=== PATIENT | female | born 1955 | race Caucasian/White ===

== ENCOUNTER 2021-08-18 10:35 | Outpatient (REF) | payer MEDICARE, SELFPAY ==
[2021-08-18 10:40] LABS: MANUAL DIFF FLAG NO
[2021-08-18 10:47] LABS: Basophils Percent Auto 0.2 % (0-2); Eosinophils Absolute Auto 0.2 X10*3/uL (0.0-0.4); Eosinophils Percent Auto 2.2 % (0-4); Hemoglobin 15.4 g/dl (12.0-16.0); Imm Gran Abs Auto 0.03 X10*3/uL (0.00-0.03); Imm Gran Pct Auto 0.4 % (0.0-0.4); Lymphocytes Absolute Auto 2.7 X10*3/uL (1.2-4.9); Lymphocytes Percent Auto 33.6 % (20-40); Mean Corpuscular HGB Conc 33.5 g/dl (31.0-35.0); Mean Corpuscular Hemoglobin 28.7 pg (27.0-33.0); Mean Corpuscular Volume 85.8 fL (80-98); Monocytes Absolute Auto 0.5 X10*3/uL (0.1-1.2); Monocytes Percent Auto 6.5 % (2-11); Neutrophils Absolute Auto 4.6 X10*3/uL (2.0-8.3); Neutrophils Percent Auto 57.1 % (45-73); Platelet Count 295 X10*3/uL (160-400); Red Blood Count 5.36 X10*6/uL (4.20-5.50); Red Cell Distribution Width 12.5 % (11.0-16.0); White Blood Count 8.1 X10*3/uL (4.8-10.8)
[2021-08-18 10:55] LABS: Appearance Urine TURBID; Color Urine YELLOW; Glucose Urine UA NEG (NEG); Leukocyte Esterase Urine NEG (NEG); Nitrite Urine NEG (NEG); Specific Gravity - Urine >= 1.030 (1.005-1.025); Urine Blood TRACE (NEG); Urine Ketones 15 MG/DL (NEG); Urine Protein 1+ MG/DL (NEG-TRACE)
[2021-08-18 11:03] LABS: Alanine Aminotransferase 19 U/L (0-31); Albumin Level 4.7 g/dL (3.5-5.0); Alkaline Phosphatase 81 U/L (39-117); Anion Gap 15 (12-20); Aspartate Amino Transferase 18 U/L (5-31); Bilirubin Total 0.4 mg/dL (0.0-1.0); Blood Urea Nitrogen 19 mg/dL (9-16); Calcium 9.7 mg/dL (8.4-10.2); Carbon Dioxide 24 mmol/L (22-29); Chloride 105 mmol/L (96-108); Cholesterol 197 mg/dL; Estimated Glomerular Filt Rate > 60; Glucose Fasting 92 mg/dL (60-99); HDL Cholesterol 43 mg/dL; LDL Cholesterol Calculated 128 mg/dl; Potassium 4.4 mmol/L (3.3-5.1); Sodium 140 mmol/L (135-145); Total Protein 7.6 g/dL (6.5-8.0); Triglycerides 134 mg/dL
[2021-08-18 11:31] LABS: Amorphous Sediment Urine 4+ /LPF; RBC Urine 0 /HPF (0); Squamous Epithelial Cell Urine TRACE /LPF; WBC Urine 0 /HPF (0-4)
== END 2021-08-18 10:36 | disposition home or self-care (01) ==
LOC: HO.LNP 10:35
PROVIDERS: Visit Provider Internal Medicine
DX: Z00.00 Encounter for general adult medical examination without abnormal findings (principal)
CPT/HCPCS: 80053; 80061; 81001; 85025

== ENCOUNTER 2021-12-01 15:37 | Outpatient (REF) | payer MEDICARE, SELFPAY ==
[2021-12-01 16:50] LABS: Thyroid Stimulating Hormone < 0.01 uIU/mL (0.32-4.0)
[2021-12-02 11:11] LABS: Free T4 (Free Thyroxine) 1.15 ng/dL (0.71-1.85)
[2021-12-04 02:12] LABS: T3 Uptake 32 % (22-35)
== END 2021-12-01 15:38 | disposition home or self-care (01) ==
LOC: HO.LNP 15:37
PROVIDERS: Visit Provider Internal Medicine
DX: E03.9 Hypothyroidism, unspecified (principal)
CPT/HCPCS: 84439; 84443; 84479

== ENCOUNTER 2021-12-19 11:14 | Outpatient (REF) | payer MEDICARE, SELFPAY ==
--- NOTE | ~2021-12-19 | US_ITS ---
EXAMINATION: US THYROID CLINICAL INFORMATION: Left thyroid nodule. COMPARISON: None TECHNIQUE: Linear transducer grayscale and color Doppler examination with attention to the region of the thyroid. FINDINGS: SIZE: Measurements of the thyroid lobes and nodules are given in sagittal, anteroposterior and transverse dimensions respectively. Right Thyroid Lobe: 12.6 x 3.3 x 2.9 cm, volume 63.6 mL. Parenchyma: The gland echotexture is heterogeneous. Thyroid vascularity is increased. Left Thyroid Lobe: 8.3 x 4.1 x 4.2 cm, volume 75.2 mL. Parenchyma: The gland echotexture is heterogeneous. Thyroid vascularity is increased. Isthmus: 1.2 cm in maximum AP dimension. Estimated total number of nodules greater than or equal to 1 cm: 5. Commercial Plumber nodules are described as follows: 1. Location: Right mid. Size: 3.0 x 1.3 x 3.0 cm, volume 6.23 mL. Nodule characteristics: Composition: Mixed cystic and solid (1). Echogenicity: Hypoechoic (2). Shape: Not taller than wide (0). Margins: Smooth (0). Echogenic Foci: None (0). ACR TI-RADS total points: 3 ACR TI-RADS category: 3 2. Location: Right mid. Size: 2.1 x 1.3 x 1.7 cm, volume 2.5 mL. Nodule characteristics: Composition: Mixed cystic and solid (1). Echogenicity: Hypoechoic (2). Shape: Not taller than wide (0). Margins: Smooth (0). Echogenic Foci: None (0). ACR TI-RADS total points: 3 ACR TI-RADS category: 3 3. Location: Right inferior. Size: 1.9 x 0.8 x 1.2 cm, volume 0.9 mL. Nodule characteristics: Composition: Solid/almost completely solid (2). Echogenicity: Hypoechoic (2). Shape: Not taller than wide (0). Margins: Smooth (0). Echogenic Foci: None (0). ACR TI-RADS total points: 4 ACR TI-RADS category: 4 4. Location: Left superior. Size: 2.1 x 1.8 x 1.8 cm, volume 3.6 mL. Nodule characteristics: Composition: Solid (2). Echogenicity: Hypoechoic (2). Shape: Not taller than wide (0). Margins: Smooth (0). Echogenic Foci: Peripheral calcifications (2). ACR TI-RADS total points: 6 ACR TI-RADS category: 4 5. Location: Left mid. Size: 1.6 x 2.8 x 3.0 cm, volume 7.3 mL. Nodule characteristics: Composition: Solid/almost completely solid (2). Echogenicity: Isoechoic (1). Shape: Not taller than wide (0). Margins: Smooth (0). Echogenic Foci: None (0). ACR TI-RADS total points: 3 ACR TI-RADS category: 3 NODES: No lymphadenopathy is seen in the tissue surrounding the thyroid gland. US/US thyroid IMPRESSION: Enlarged heterogeneous hypervascular thyroid gland with multiple bilateral nodules. Multiple nodules meet the TI RADS criteria for fine-needle aspiration and follow-up. Most suspicious nodule is in the upper pole of the left lobe and fine-needle aspiration is recommended. ACR TI-RADS RECOMMENDATION REFERENCE: Ultrasound-guided fine-needle aspiration, followup ultrasound, no further follow up. * TR1 (0 point) and TR 2 (2 points): No FNA or follow up * TR3 (3 points): FNA if more than or equal to 2.5 cm in maximum dimension, followup ultrasound in 1, 3 and 5 years if 1.5 to 2.4 cm in maximum dimension. * TR4 (4-6 points): FNA if more than or equal to 1.5 cm in maximum dimension, followup ultrasound in 1, 2, 3 and 5 years if 1 to 1.4 cm in maximum dimension. * TR5 (more than or equal to 7 points): FNA if more than or equal to 1 cm in maximum dimension, followup ultrasound every year for 5 years if 0.5 to 0.9 cm in maximum dimension. * TR3, TR4 or TR5 nodules that are below the size threshold for follow up receive no follow up.
== END 2021-12-19 11:15 | disposition home or self-care (01) ==
LOC: HO.US 11:14
PROVIDERS: Visit Provider Internal Medicine
DX: E04.1 Nontoxic single thyroid nodule (principal)
CPT/HCPCS: 76536

== ENCOUNTER → 2022-06-19 08:02 | Outpatient (BNVA) | payer MEDICARE, SELFPAY | PROVIDERS: PCP Internal Medicine; Visit Provider Internal Medicine | DX: E05.90 Thyrotoxicosis, unspecified without thyrotoxic crisis or storm (principal); E04.2 Nontoxic multinodular goiter; E55.9 Vitamin D deficiency, unspecified | CPT/HCPCS: Q3014 ==

== ENCOUNTER 2022-06-23 08:16 | Outpatient (REF) | payer MEDICARE, SELFPAY ==
[2022-06-23 09:54] LABS: Alanine Aminotransferase 13 U/L (0-31); Albumin Level 4.3 g/dL (3.5-5.0); Alkaline Phosphatase 69 U/L (39-117); Anion Gap 15 (12-20); Aspartate Amino Transferase 13 U/L (5-31); Bilirubin Total 0.6 mg/dL (0.0-1.0); Blood Urea Nitrogen 23 mg/dL (9-16); Calcium 9.4 mg/dL (8.4-10.2); Carbon Dioxide 23 mmol/L (22-29); Chloride 108 mmol/L (96-108); Estimated Glomerular Filt Rate > 60; Glucose Random 106 mg/dL (60-115); Phosphorus 3.5 mg/dL (2.7-4.5); Potassium 4.4 mmol/L (3.3-5.1); Sodium 142 mmol/L (135-145); Total Protein 6.8 g/dL (6.5-8.0)
[2022-06-23 10:16] LABS: Free T4 (Free Thyroxine) 1.31 ng/dL (0.71-1.85); Thyroid Stimulating Hormone < 0.01 uIU/mL (0.32-4.0)
[2022-06-25 12:52] LABS: Calcium (PTHI) 9.6 mg/dL (8.6-10.4); PTHI 77 pg/mL (16-77)
[2022-06-26 06:48] LABS: Triiodothyronine T3 Total 142 ng/dL (76-181)
[2022-06-26 17:02] LABS: Thyroid Peroxidase Antibodies <1 IU/mL (<9)
[2022-06-26 21:11] LABS: Thyroglobulin Antibodies <1 IU/mL (< or = 1)
[2022-06-28 14:22] LABS: Thyroid Stimulating Immunoglob <89 % baseline (<140)
[2022-06-28 21:21] LABS: Thyrotropin Receptor Antibody <1.00 IU/L (<=2.00)
== END 2022-06-23 08:17 | disposition home or self-care (01) ==
LOC: HO.LAB 08:16
PROVIDERS: PCP Internal Medicine; Visit Provider Internal Medicine
DX: E04.2 Nontoxic multinodular goiter (principal); E05.90 Thyrotoxicosis, unspecified without thyrotoxic crisis or storm; E55.9 Vitamin D deficiency, unspecified
CPT/HCPCS: 36415; 80053; 82306; 83520; 83970; 84100; 84439; 84443; 84445; 84480; 86376; 86800

== ENCOUNTER → 2022-07-12 09:21 | Outpatient (REF) | payer MEDICARE, SELFPAY ==
--- NOTE | ~2022-07-12 | NM_ITS ---
EXAMINATION: THYROID UPTAKE AND SCAN CLINICAL INFORMATION: Thyrotoxicosis. COMPARISON: No previous radionuclide thyroid scan is available for comparison. Thyroid ultrasound dated 12/19/2021 is available for comparison. TECHNIQUE: Following the oral administration of 279 microcuries of I-123 sodium iodide, thyroid uptake was performed and expressed as a percentage of the administrated dose. Gamma scintillation camera images of the thyroid in the anterior and right and left anterior oblique views were obtained using a pinhole collimator following the administration of 10 mCi Tc-99m pertechnetate. FINDINGS: The uptake is 25.3% at 4 hours and 42.5% at 24 hours (Normal radioiodine uptake at 24 hours is 10% to 30%). The radioiodine uptake is normal. The radiopertechnetate thyroid scintigram shows the thyroid gland to be markedly enlarged. The left lobe is slightly larger than the right. There is markedly heterogeneous distribution of activity within the gland with multiple small rounded foci of relatively increased activity present throughout the left lobe with the remainder of the left lobe only barely visualized. A larger and more intense focus of increased activity with central photopenia is present in the mid to superior aspect of the right lobe and additional smaller and less intense rounded foci are present in the remainder of the right lobe, and at least 3 foci. A single anterior radioiodine image obtained at the time of the 24-hour uptake measurement is similar to the radio pertechnetate image but does not delineate the detail within the gland quite as well. The thyroid ultrasound dated 12/19/2021 showed multiple nodules bilaterally. 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
== END ==
LOC: HO.NUCMED 09:21
PROVIDERS: PCP Internal Medicine; Visit Provider Internal Medicine
DX: E04.2 Nontoxic multinodular goiter (principal); E05.90 Thyrotoxicosis, unspecified without thyrotoxic crisis or storm
CPT/HCPCS: 78014; A9512; A9516

== ENCOUNTER 2022-08-04 07:30 | Outpatient (REF) | payer MEDICARE, SELFPAY ==
[2022-08-04 09:12] LABS: Free T4 (Free Thyroxine) 1.01 ng/dL (0.71-1.85)
[2022-08-06 18:17] LABS: Triiodothyronine T3 Total 123 ng/dL (76-181)
== END 2022-08-04 07:31 | disposition home or self-care (01) ==
LOC: HO.LAB 07:30
PROVIDERS: PCP Internal Medicine; Visit Provider Internal Medicine
DX: E05.90 Thyrotoxicosis, unspecified without thyrotoxic crisis or storm (principal)
CPT/HCPCS: 36415; 84439; 84480

== ENCOUNTER 2022-09-21 09:44 | Outpatient (REF) | payer MEDICARE, SELFPAY ==
--- NOTE | 2022-09-21 10:12 | PM.OP ---
Brief Operative Note Date of Service: 09/21/22 Pre-op diagnosis: Multinodular Thyroid Procedure: EXAMINATION: US THYROID CLINICAL INFORMATION: Multinodular Thyroid COMPARISON: Prior TECHNIQUE: Linear transducer martinez-scale and color Doppler examination with attention to the region of the thyroid. FINDINGS: SIZE: Measurements of the thyroid lobes and nodules are given in sagittal, anteroposterior and transverse dimensions respectively. Right Thyroid Lobe: 6.3 x 2.2 x 3.2 cm, volume 23.2 mL. Parenchyma: The gland echotexture is difusely heterogenous. Thyroid vascularity is increased. Left Thyroid Lobe: 7.8 x 4.0 x 5.3 cm, volume 86.5 mL. Parenchyma: The gland echotexture is diffusely heterogenous. Thyroid vascularity is increased. Isthmus: 0.9 cm in maximum AP dimension. There are numerous nodules within both lobes of the thyroid, too numerous to count. IMPRESSION: When comparing her ultrasound of the thyroid to her uptake and scan, all nodules appear to be hot nodules. Additionally the patient appears to be thyrotoxic today. No FNA was performed due to the risk of inducing crisis. She was instead asked to have TFTs repeated now so a dose adjustment of her methimazole can be made. We also discussed the option of total thyroidectomy, and she has agreed to this. I have referred her to Dr. Miranda. Surgeon: Marcela Lyon, DO Was an Marketing Underwriter used for this Procedure?: No Estimated blood loss (mL): 0
[2022-09-21 11:35] LABS: Free T4 (Free Thyroxine) 0.96 ng/dL (0.71-1.85); Thyroid Stimulating Hormone 0.05 uIU/mL (0.32-4.0)
[2022-09-23 04:18] LABS: Triiodothyronine T3 Total 101 ng/dL (76-181)
== END 2022-09-21 09:45 | disposition home or self-care (01) ==
LOC: HO.US 09:44
PROVIDERS: Visit Provider Internal Medicine
DX: E04.2 Nontoxic multinodular goiter (principal)
CPT/HCPCS: 36415; 76536; 84439; 84443; 84480

== ENCOUNTER 2022-10-09 08:22 | Outpatient (REF) | payer MEDICARE, SELFPAY ==
[2022-10-09 10:33] LABS: Free T4 (Free Thyroxine) 0.87 ng/dL (0.71-1.85)
[2022-10-11 01:39] LABS: Triiodothyronine T3 Total 100 ng/dL (76-181)
== END 2022-10-09 08:23 | disposition home or self-care (01) ==
LOC: HO.LAB 08:22
PROVIDERS: PCP Internal Medicine; Visit Provider Internal Medicine
DX: E05.20 Thyrotoxicosis with toxic multinodular goiter without thyrotoxic crisis or storm (principal)
CPT/HCPCS: 36415; 84439; 84480

== ENCOUNTER → 2022-10-11 11:35 | Outpatient (BNVA) | payer MEDICARE, SELFPAY | PROVIDERS: PCP Internal Medicine; Visit Provider Internal Medicine | DX: E05.90 Thyrotoxicosis, unspecified without thyrotoxic crisis or storm (principal); E04.2 Nontoxic multinodular goiter; E55.9 Vitamin D deficiency, unspecified | CPT/HCPCS: 99212 ==

== ENCOUNTER 2022-11-10 08:28 | Outpatient (REF) | payer MEDICARE, SELFPAY ==
[2022-11-10 11:43] LABS: Free T4 (Free Thyroxine) 0.73 ng/dL (0.71-1.85); Thyroid Stimulating Hormone 1.12 uIU/mL (0.32-4.0)
[2022-11-11 17:45] LABS: Triiodothyronine T3 Total 111 ng/dL (76-181)
== END 2022-11-10 08:29 | disposition home or self-care (01) ==
LOC: HO.LAB 08:28
PROVIDERS: PCP Internal Medicine; Visit Provider Internal Medicine
DX: E05.90 Thyrotoxicosis, unspecified without thyrotoxic crisis or storm (principal)
CPT/HCPCS: 36415; 84439; 84443; 84480

== ENCOUNTER → 2022-11-15 12:43 | Outpatient (BNVA) | payer MEDICARE, SELFPAY | PROVIDERS: PCP Internal Medicine; Visit Provider Internal Medicine | DX: E05.90 Thyrotoxicosis, unspecified without thyrotoxic crisis or storm (principal); E04.2 Nontoxic multinodular goiter; E55.9 Vitamin D deficiency, unspecified | CPT/HCPCS: 99212 ==

== ENCOUNTER 2022-11-28 11:12 | Outpatient (REF) | payer MEDICARE, SELFPAY ==
[2022-11-28 11:15] LABS: MANUAL DIFF FLAG NO
[2022-11-28 11:29] LABS: Appearance Urine Clear; Color Urine Yellow; Glucose Urine UA Negative (Negative); Leukocyte Esterase Urine Negative (Negative); Nitrite Urine Negative (Negative); PH 5.5 (5.0-9.0); Urine Blood Negative (Negative); Urine Ketones Negative (Negative); Urine Protein Negative (Neg-Trace)
[2022-11-28 12:04] LABS: Basophils Percent Auto 0.4 % (0-2); Eosinophils Absolute Auto 0.3 X10*3/uL (0.0-0.4); Eosinophils Percent Auto 4.5 % (0-4); Imm Gran Abs Auto 0.02 X10*3/uL (0.00-0.03); Imm Gran Pct Auto 0.3 % (0.0-0.4); Lymphocytes Percent Auto 30.2 % (20-40); Mean Corpuscular HGB Conc 33.3 g/dl (31.0-35.0); Mean Platelet Volume 9.9 fL (9.4-12.3); Monocytes Absolute Auto 0.4 X10*3/uL (0.1-1.2); Monocytes Percent Auto 5.8 % (2-11); Neutrophils Absolute Auto 3.9 x10*3/uL (2.0-8.3); Neutrophils Percent Auto 58.8 % (45-73); Platelet Count 230 X10*3/uL (160-400); Red Blood Count 4.84 X10*6/uL (4.20-5.50); Red Cell Distribution Width 13.1 % (11.0-16.0); White Blood Count 6.7 X10*3/uL (4.8-10.8)
[2022-11-28 12:34] LABS: Alanine Aminotransferase 26 U/L (0-31); Albumin Level 4.6 g/dL (3.5-5.0); Alkaline Phosphatase 70 U/L (39-117); Anion Gap 14 (12-20); Aspartate Amino Transferase 19 U/L (5-31); Bilirubin Total 0.5 mg/dL (0.0-1.0); Blood Urea Nitrogen 18 mg/dL (9-16); Calcium 9.7 mg/dL (8.4-10.2); Carbon Dioxide 26 mmol/L (22-29); Chloride 107 mmol/L (96-108); Cholesterol 214 mg/dL; Estimated Glomerular Filt Rate > 60; Glucose Fasting 98 mg/dL (60-99); HDL Cholesterol 46 mg/dL; LDL Cholesterol Calculated 153 mg/dl; Potassium 4.6 mmol/L (3.3-5.1); Sodium 142 mmol/L (135-145); TSH reflex Free T4 1.81 uIU/mL (0.32-4.0); Triglycerides 79 mg/dL
== END 2022-11-28 11:13 | disposition home or self-care (01) ==
LOC: HO.LNP 11:12
PROVIDERS: Visit Provider Internal Medicine
DX: Z00.00 Encounter for general adult medical examination without abnormal findings (principal); E05.90 Thyrotoxicosis, unspecified without thyrotoxic crisis or storm
CPT/HCPCS: 80053; 80061; 81003; 84443; 85025

== ENCOUNTER 2022-12-27 09:53 | Outpatient (REF) | payer MEDICARE, SELFPAY ==
[2022-12-27 12:11] LABS: Free T4 (Free Thyroxine) 0.74 ng/dL (0.71-1.85); Thyroid Stimulating Hormone 1.37 uIU/mL (0.32-4.0)
[2022-12-29 08:32] LABS: Triiodothyronine T3 Total 92 ng/dL (76-181)
== END 2022-12-27 09:54 | disposition home or self-care (01) ==
LOC: HO.LAB 09:53
PROVIDERS: PCP Internal Medicine; Visit Provider Internal Medicine
DX: E04.2 Nontoxic multinodular goiter (principal); E05.90 Thyrotoxicosis, unspecified without thyrotoxic crisis or storm
CPT/HCPCS: 36415; 84439; 84443; 84480

== ENCOUNTER 2023-03-09 10:27 | Outpatient (REF) | payer MEDICARE, SELFPAY ==
[2023-03-09 13:01] LABS: Free T4 (Free Thyroxine) 0.86 ng/dL (0.71-1.85)
[2023-03-10 19:08] LABS: Triiodothyronine T3 Total 89 ng/dL (76-181)
== END 2023-03-09 10:28 | disposition home or self-care (01) ==
LOC: HO.LAB 10:27
PROVIDERS: PCP Internal Medicine; Visit Provider Internal Medicine
DX: E05.20 Thyrotoxicosis with toxic multinodular goiter without thyrotoxic crisis or storm (principal)
CPT/HCPCS: 36415; 84439; 84443; 84480

== ENCOUNTER 2023-04-30 07:06 | Outpatient (REF) | payer MEDICARE, SELFPAY ==
[2023-04-30 09:12] LABS: Calcium 9.5 mg/dL (8.4-10.2)
[2023-04-30 09:23] LABS: Free T4 (Free Thyroxine) 0.96 ng/dL (0.71-1.85); Thyroid Stimulating Hormone 1.64 uIU/mL (0.32-4.0)
[2023-05-01 23:34] LABS: Triiodothyronine T3 Free 3.4 pg/mL (2.3-4.2)
== END 2023-04-30 07:07 | disposition home or self-care (01) ==
LOC: HO.LAB 07:06
PROVIDERS: PCP Internal Medicine; Visit Provider Surgery
DX: E05.00 Thyrotoxicosis with diffuse goiter without thyrotoxic crisis or storm (principal)
CPT/HCPCS: 36415; 82310; 84439; 84443; 84481

== ENCOUNTER 2023-06-28 12:07 | Outpatient (REF) | payer MEDICARE, SELFPAY ==
[2023-06-28 14:18] LABS: Calcium 9.6 mg/dL (8.4-10.2)
[2023-06-28 14:42] LABS: TSH reflex Free T4 2.96 uIU/mL (0.32-4.0)
== END 2023-06-28 12:08 | disposition home or self-care (01) ==
LOC: HO.LNP 12:07
PROVIDERS: Visit Provider Internal Medicine
DX: E89.0 Postprocedural hypothyroidism (principal)
CPT/HCPCS: 82310; 84443

== ENCOUNTER 2023-06-29 16:08 | Outpatient (AMB) | payer MEDICARE, SELFPAY ==
--- NOTE | 2023-06-29 16:09 | MHC.OFFVIS ---
Intake Vital Signs 06/29/23 16:11 Height 5 ft 4 in Weight 165 lb 2.02 oz BMI 28.3 BP 118/72 Blood Pressure Location Lt brachial Position Sitting Pulse 61 Pulse Source Pulse Oximeter Intake Visit Reasons: Follow up Thyroidectomy 05/15/23 Intake Note: New patient present today for Thyroidectomy follow up visit. Former Dr. Royal patient. Director Of Casework Department Required: No Accompanied by: Self / Same As Patient Allergies No Known Allergies Allergy (Verified 06/29/23 16:12) Medication List - Last Reconciled 06/29/23 by Mikael Nath MD aspirin (Adult Low Dose Aspirin) 81 mg PO DAILY levothyroxine 0.012 mcg PO DAILY HPI HPI Comments History of Present Illness Details 68 YO F with PMHx Hyperthyroidism and a multinodular thyroid . Patient last saw Dr. Royal. 11/15/2022 Was initially diagnosed with hyperthyroidism in Nov 2021, and then had a thyroid US Dec 2021 which revealed multiple thyroid nodules. She reported a weight loss of 30 lbs, anxiety, insomnia as well as heat intolerance. Denied any palpitations, tremors, frequent bowel movements. She does have double vision, but this has been present since she was a child and is unchanged. Denies any pressure in the eyes or occular pain. Thyroid US revealed a multinodular thyroid. Thyroid Uptake and Scan was consistent with a toxic MNG. She was started on methimazole 10 mg PO daily and remains on this now. She is tolerating this well without jaundice, abdominal pain, frequent infection or rash. She does report feeling tired and a weight gain of 8 lbs since starting the methimazole. Her recent FT4 and TT3 were WNL. Denies any history of head or neck irradiation. Denies any family history of thyroid cancer. Thyroid Uptake and Scan: 07/13/2022 FINDINGS: The uptake is 25.3% at 4 hours and 42.5% at 24 hours (Normal radioiodine uptake at 24 hours is 10% to 30%). The radioiodine uptake is normal. The radiopertechnetate thyroid scintigram shows the thyroid gland to be markedly enlarged. The left lobe is slightly larger than the right. There is markedly heterogeneous distribution of activity within the gland with multiple small rounded foci of relatively increased activity present throughout the left lobe with the remainder of the left lobe only barely visualized. A larger and more intense focus of increased activity with central photopenia is present in the mid to superior aspect of the right lobe and additional smaller and less intense rounded foci are present in the remainder of the right lobe, and at least 3 foci. A single anterior radioiodine image obtained at the time of the 24-hour uptake measurement is similar to the radio pertechnetate image but does not delineate the detail within the gland quite as well. The thyroid ultrasound dated 12/19/2021 showed multiple nodules bilaterally. 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 Thyroid US: 12/19/2021 Right Thyroid Lobe: 12.6 x 3.3 x 2.9 cm, volume 63.6 mL. Parenchyma: The gland echotexture is heterogeneous. Thyroid vascularity is increased. Left Thyroid Lobe: 8.3 x 4.1 x 4.2 cm, volume 75.2 mL. Parenchyma: The gland echotexture is heterogeneous. Thyroid vascularity is increased. Isthmus: 1.2 cm in maximum AP dimension. Estimated total number of nodules greater than or equal to 1 cm: 5. Assistant To The Director nodules are described as follows: 1. Location: Right mid. ?? ? Size: 3.0 x 1.3 x 3.0 cm, volume 6.23 mL. ?? ? Nodule characteristics: ?? ? Composition: Mixed cystic and solid (1). ?? ? Echogenicity: Hypoechoic (2). ?? ? Shape: Not taller than wide (0). ?? ? Margins: Smooth (0). ?? ? Echogenic Foci: None (0). ?? ? ACR TI-RADS total points: 3 ?? ? ACR TI-RADS category: 3 2. Location: Right mid. ?? ? Size: 2.1 x 1.3 x 1.7 cm, volume 2.5 mL. ?? ? Nodule characteristics: ?? ? Composition: Mixed cystic and solid (1). ?? ? Echogenicity: Hypoechoic (2). ?? ? Shape: Not taller than wide (0). ?? ? Margins: Smooth (0). ?? ? Echogenic Foci: None (0). ?? ? ACR TI-RADS total points: 3 ?? ? ACR TI-RADS category: 3 3. Location: Right inferior. ?? ? Size: 1.9 x 0.8 x 1.2 cm, volume 0.9 mL. ?? ? Nodule characteristics: ?? ? Composition: Solid/almost completely solid (2). ?? ? Echogenicity: Hypoechoic (2). ?? ? Shape: Not taller than wide (0). ?? ? Margins: Smooth (0). ?? ? Echogenic Foci: None (0). ?? ? ACR TI-RADS total points: 4 ?? ? ACR TI-RADS category: 4 4. Location: Left superior. ?? ? Size: 2.1 x 1.8 x 1.8 cm, volume 3.6 mL. ?? ? Nodule characteristics: ?? ? Composition: Solid (2). ?? ? Echogenicity: Hypoechoic (2). ?? ? Shape: Not taller than wide (0). ?? ? Margins: Smooth (0). ?? ? Echogenic Foci: Peripheral calcifications (2). ?? ? ACR TI-RADS total points: 6 ?? ? ACR TI-RADS category: 4 5.? Location: Left mid. ?? ? Size: 1.6 x 2.8 x 3.0 cm, volume 7.3 mL. ?? ? Nodule characteristics: ?? ? Composition: Solid/almost completely solid (2). ?? ? Echogenicity: Isoechoic (1). ?? ? Shape: Not taller than wide (0). ?? ? Margins: Smooth (0). ?? ? Echogenic Foci: None (0). ?? ? ACR TI-RADS total points: 3 ?? ? ACR TI-RADS category: 3 ?? ? NODES: No lymphadenopathy is seen in the tissue surrounding the thyroid gland. US/US thyroid IMPRESSION: Enlarged heterogeneous hypervascular thyroid gland with multiple bilateral nodules. Multiple nodules meet the TI RADS criteria for fine-needle aspiration and follow-up. Most suspicious nodule is in the upper pole of the left lobe and fine-needle aspiration is recommended. Labs: Laboratory Tests 11/10/22 11/10/22 08:38 08:38 TSH 1.12 Free T4 0.73 Total T3 111 she is status post total thyroidectomy on 05/15/2023 with benign pathology. [facility] Medical History Hyperthyroidism Multinodular thyroid Toxic multinodular goiter Vitamin D deficiency Surgical History History of foot surgery Hx of cataract surgery Family History Father Diabetes mellitus Mother HTN (hypertension) Social History Alcohol intake: current Alcohol intake frequency: holidays/special occasions only Patient Tobacco Use Status: Former Tobacco user Cigarette Packs Per Day: 2 Years Smoked: 15 Physical Exam Vital Signs: BMI result Body Mass Index 28.3 Const Other: Healing scar status post thyroidectomy. Reflexes 2+ DTR Assessment & Plan Assessment & Plan (1) Toxic multinodular goiter: Code(s): E05.20 - Thyrotoxicosis with toxic multinodular goiter without thyrotoxic crisis or storm Plan: This 68-year-old white female status post total thyroidectomy for toxic multinodular goiter. Currently replaced on 112 mcg levothyroxine. She appears to be clinically biochemically euthyroid. Plan is to continue the current therapy. At this point, patient returned to the care of her primary care provider and return back to endocrinology as needed Coding Level of Care Code Est Pt Level 3 (91072) Diagnoses Toxic multinodular goiter E05.20
[2023-06-29 16:11] VITALS: BP 118/72; PULSE 61; BMI 28.3
== END 2023-06-29 16:31 | disposition home or self-care (01) ==
PROVIDERS: PCP Internal Medicine; Visit Provider Internal Medicine Endocrinology, Diabetes & Metabolism
DX: E05.20 Thyrotoxicosis with toxic multinodular goiter without thyrotoxic crisis or storm (principal)
CPT/HCPCS: 99213

== ENCOUNTER → 2023-06-29 16:08 | Outpatient (BNVA) | payer MEDICARE, SELFPAY | PROVIDERS: PCP Internal Medicine; Visit Provider Internal Medicine Endocrinology, Diabetes & Metabolism | DX: E05.20 Thyrotoxicosis with toxic multinodular goiter without thyrotoxic crisis or storm (principal); Z79.899 Other long term (current) drug therapy | CPT/HCPCS: 99212 ==

== ENCOUNTER 2023-12-11 10:55 | Outpatient (REF) | payer MEDICARE, SELFPAY ==
[2023-12-11 11:01] LABS: MANUAL DIFF FLAG NO
[2023-12-11 11:31] LABS: Basophils Absolute Auto 0.1 X10*3/uL (0.0-0.2); Basophils Percent Auto 0.7 % (0-2); Eosinophils Absolute Auto 0.3 X10*3/uL (0.0-0.4); Eosinophils Percent Auto 3.1 % (0-4); Hematocrit 44.7 % (37.0-47.0); Hemoglobin 15.2 g/dl (12.0-16.0); Imm Gran Abs Auto 0.03 X10*3/uL (0.00-0.03); Imm Gran Pct Auto 0.4 % (0.0-0.4); Lymphocytes Absolute Auto 2.2 X10*3/uL (1.2-4.9); Lymphocytes Percent Auto 26.1 % (20-40); Mean Corpuscular Hemoglobin 31.4 pg (27.0-33.0); Mean Corpuscular Volume 92.4 fL (80.0-98.0); Mean Platelet Volume 9.4 fL (9.4-12.3); Monocytes Absolute Auto 0.5 X10*3/uL (0.1-1.2); Neutrophils Absolute Auto 5.3 x10*3/uL (2.0-8.3); Neutrophils Percent Auto 63.7 % (45-73); Platelet Count 308 X10*3/uL (160-400); Red Blood Count 4.84 X10*6/uL (4.20-5.50); Red Cell Distribution Width 12.8 % (11.0-16.0); White Blood Count 8.4 X10*3/uL (4.8-10.8)
[2023-12-11 11:34] LABS: Appearance Urine Clear; Color Urine Yellow; Glucose Urine UA Negative (Negative); Leukocyte Esterase Urine Negative (Negative); Nitrite Urine Negative (Negative); PH 5.5 (5.0-9.0); Specific Gravity - Urine 1.025 (1.005-1.025); UMIC TRIGGER UACC YES; Urine Blood Trace (Negative); Urine Ketones Negative (Negative); Urine Protein Negative (Neg-Trace)
[2023-12-11 11:41] LABS: Bacteria Urine None Seen (None Seen); Hyaline Casts Urine 0-2 /LPF (0-2); Squamous Epithelial Cell Urine 0-2 /HPF (0-2); WBC Urine 0-5 /HPF (0-5)
[2023-12-11 11:53] LABS: Alanine Aminotransferase 20 U/L (0-31); Albumin Level 4.7 g/dL (3.5-5.0); Alkaline Phosphatase 59 U/L (39-117); Anion Gap 16 (12-20); Aspartate Amino Transferase 16 U/L (5-31); Bilirubin Total 0.5 mg/dL (0.0-1.0); Blood Urea Nitrogen 21 mg/dL (9-16); Calcium 9.8 mg/dL (8.4-10.2); Carbon Dioxide 25 mmol/L (22-29); Chloride 104 mmol/L (96-108); Cholesterol 227 mg/dL (<200); Estimated Glomerular Filt Rate > 60; Glucose Fasting 112 mg/dL (60-99); HDL Cholesterol 50 mg/dL (>40); LDL Cholesterol Calculated 155 mg/dL (<100); Potassium 4.2 mmol/L (3.3-5.1); Sodium 141 mmol/L (135-145); Total Protein 7.8 g/dL (6.5-8.0); Triglycerides 112 mg/dL (<150)
[2023-12-11 13:22] LABS: TSH reflex Free T4 3.21 uIU/mL (0.32-4.0)
== END 2023-12-11 10:56 | disposition home or self-care (01) ==
LOC: HO.LNP 10:55
PROVIDERS: Visit Provider Internal Medicine
DX: Z00.00 Encounter for general adult medical examination without abnormal findings (principal); E05.90 Thyrotoxicosis, unspecified without thyrotoxic crisis or storm; I10 Essential (primary) hypertension
CPT/HCPCS: 80053; 80061; 81001; 84443; 85025

== ENCOUNTER 2024-06-19 11:00 | Outpatient (REF) | payer MEDICARE, SELFPAY ==
[2024-06-19 11:40] LABS: Glucose Fasting 102 mg/dL (60-99)
[2024-06-19 11:43] LABS: Estimated Average Glucose 108 mg/dL; Hemoglobin A1c % 5.4 % (<6.0)
== END 2024-06-19 11:01 | disposition home or self-care (01) ==
LOC: HO.LNP 11:00
PROVIDERS: Visit Provider Internal Medicine
DX: R31.29 Other microscopic hematuria (principal); R73.9 Hyperglycemia, unspecified
CPT/HCPCS: 82947; 83036

== ENCOUNTER 2024-07-01 10:50 | Outpatient (REF) | payer MEDICARE, SELFPAY ==
[2024-07-01 11:40] LABS: Free T4 (Free Thyroxine) 1.24 ng/dL (0.71-1.85); Thyroid Stimulating Hormone 3.03 uIU/mL (0.32-4.0)
[2024-07-01 11:48] LABS: Erythrocyte Sedimentation Rate 2 MM/HR (0-20)
== END 2024-07-01 10:51 | disposition home or self-care (01) ==
LOC: HO.LNP 10:50
PROVIDERS: Visit Provider Internal Medicine
DX: M35.3 Polymyalgia rheumatica (principal); E03.9 Hypothyroidism, unspecified; E05.90 Thyrotoxicosis, unspecified without thyrotoxic crisis or storm
CPT/HCPCS: 84439; 84443; 85652

== ENCOUNTER 2024-12-16 11:00 | Outpatient (REF) | payer MEDICARE, SELFPAY ==
[2024-12-16 11:02] LABS: MANUAL DIFF FLAG NO
[2024-12-16 11:30] LABS: Basophils Absolute Auto 0.1 X10*3/uL (0.0-0.2); Basophils Percent Auto 0.6 % (0-2); Eosinophils Absolute Auto 0.3 X10*3/uL (0.0-0.4); Eosinophils Percent Auto 3.8 % (0-4); Hematocrit 52.5 % (37.0-47.0); Hemoglobin 17.7 g/dl (12.0-16.0); Imm Gran Abs Auto 0.11 X10*3/uL (0.00-0.03); Imm Gran Pct Auto 1.2 % (0.0-0.4); Lymphocytes Absolute Auto 2.5 X10*3/uL (1.2-4.9); Lymphocytes Percent Auto 27.8 % (20-40); Mean Corpuscular HGB Conc 33.7 g/dl (31.0-35.0); Mean Corpuscular Hemoglobin 31.3 pg (27.0-33.0); Mean Corpuscular Volume 92.9 fL (80.0-98.0); Mean Platelet Volume 9.9 fL (9.4-12.3); Monocytes Absolute Auto 0.7 X10*3/uL (0.1-1.2); Monocytes Percent Auto 8.3 % (2-11); Neutrophils Absolute Auto 5.2 x10*3/uL (2.0-8.3); Neutrophils Percent Auto 58.3 % (45-73); Platelet Count 248 X10*3/uL (160-400); Red Blood Count 5.65 X10*6/uL (4.20-5.50); Red Cell Distribution Width 13.2 % (11.0-16.0); White Blood Count 8.9 X10*3/uL (4.8-10.8)
[2024-12-16 11:35] LABS: Bacteria Urine None Seen (None Seen); Hyaline Casts Urine 0-2 /LPF (0-2); WBC Urine 0-5 /HPF (0-5)
[2024-12-16 11:47] LABS: Appearance Urine Clear; Color Urine DK YELLOW; Glucose Urine UA Negative (Negative); Leukocyte Esterase Urine Negative (Negative); Nitrite Urine Negative (Negative); PH 5.5 (5.0-9.0); Specific Gravity - Urine >= 1.030 (1.005-1.025); UMIC TRIGGER UACC YES; Urine Blood Moderate (2+) (Negative); Urine Ketones Negative (Negative); Urine Protein 30 (1+) mg/dL (Neg-Trace)
[2024-12-16 11:56] LABS: Alanine Aminotransferase 23 U/L (0-31); Albumin Level 4.2 g/dL (3.5-5.0); Alkaline Phosphatase 62 U/L (39-117); Anion Gap 9 (12-20); Aspartate Amino Transferase 24 U/L (5-31); Bilirubin Total 1.1 mg/dL (0.0-1.0); Blood Urea Nitrogen 19 mg/dL (9-16); Calcium 9.2 mg/dL (8.4-10.2); Carbon Dioxide 27 mmol/L (22-29); Chloride 110 mmol/L (96-108); Cholesterol 200 mg/dL (<200); Estimated Glomerular Filt Rate > 60; Glucose Fasting 109 mg/dL (60-99); HDL Cholesterol 37 mg/dL (>40); LDL Cholesterol Calculated 139 mg/dL (<100); Potassium 4.4 mmol/L (3.3-5.1); Sodium 142 mmol/L (135-145); Total Protein 7.2 g/dL (6.5-8.0); Triglycerides 122 mg/dL (<150)
[2024-12-16 11:57] LABS: TSH reflex Free T4 3.25 uIU/mL (0.32-4.0)
--- OUTSIDE RECORDS SUMMARY | 2024-12-16 12:27 | XMS_ITS ---
Author Organization Valerio Khanna MD Address [address] [place], [place] [id number] Care Team Providers Care Migratory Farm Hand Name Role Phone Clemencia Valerio Primary Care Provider Results Component Value Reference Range Notes Complete Blood Count Auto Di ff (Not yet reviewed by provider) Interpretation: Performing Lab:[facility], [address] [place] [id number] Notes/Report: White Blood Count 8.9 4.8-10.8 X10*3/uL Red Blood Count 5.65 4.20-5.50 X10*6/uL Hemoglobin 17.7 12.0-16.0 g/dl Hematocrit 52.5 37.0-47.0 % Mean Corpuscular Volume 92.9 80.0-98.0 fL Mean Corpuscular Hemoglobin 31.3 27.0-33.0 pg Mean Corpuscular HGB Conc 33.7 31.0-35.0 g/dl Red Cell Distribution Width 13.2 11.0-16.0 % Platelet Count 248 160-400 X10*3/uL Mean Platelet Volume 9.9 9.4-12.3 fL Neutrophils Percent Auto 58.3 45-73 % Imm Gran Pct Auto 1.2 0.0-0.4 % Lymphocytes Percent Auto 27.8 20-40 % Monocytes Percent Auto 8.3 2-11 % Eosinophils Percent Auto 3.8 0-4 % Basophils Percent Auto 0.6 0-2 % NRBC Pct Auto 0.0 0.0-0.2 /100WBC Neutrophils Absolute Auto 5.2 2.0-8.3 x10*3/u L Imm Gran Abs Auto 0.11 0.00-0.03 X10*3/uL Lymphocytes Absolute Auto 2.5 1.2-4.9 X10*3/u L Monocytes Absolute Auto 0.7 0.1-1.2 X10*3/uL Eosinophils Absolute Auto 0.3 0.0-0.4 X10*3/u L Basophils Absolute Auto 0.1 0.0-0.2 X10*3/uL NRBC Abs Auto 0.000 0.0-0.012 X10*3/uL UA ClnCatch+Micro w/rflx Cul t (Not yet reviewed by provider) Interpretation: Performing Lab:[facility], [address] [place] [id number] Notes/Report: Urine, Clean Catch Color Urine DK YELLOW Appearance Urine Clear PH 5.5 5.0-9.0 Glucose Urine UA Negative Negative mg/dL Urine Blood Moderate (2+) Negative Specific [place] - Urine >= 1.030 1.005-1.025 Urine Protein 30 (1+) Neg-Trace mg/dL Urine Ketones Negative Negative mg/dL Nitrite Urine Negative Negative Leukocyte Esterase Urine Negative Negative RBC Urine 11-20 0-2 /HPF WBC Urine 0-5 0-5 /HPF Squamous Epithelial Cell Urine 3-5 0-2 /HPF Bacteria Urine None Seen None Seen Hyaline Casts Urine 0-2 0-2 /LPF REASON FOR VISIT yearly fasting labs Encounters Encounter Location Date Provider Diagnosis Valerio Khanna MD [address] [facility] [address] [place], [place] [id number] 12/16/2024 Valerio Khanna Blood tests for rout ine general physical examination Z00.00 ; Hyperthyroidism E05.90 and Labile hypertension I10 Assessments Encounter Date Diagnosis (ICD Code) Assessment Notes Treatment Notes Treatment Clinical Notes Section Notes 12/16/2024 Blood tests for routine general physical examination (ICD-10 - Z00.00) 12/16/2024 Hyperthyroidism (ICD-10 - E05.90) 12/16/2024 Labile hypertension (ICD-10 - I10) Plan Of Treatment Pending Test Test Name Order Date Complete Blood Count Auto Diff 5 Comprehensive [place]. Panel Fast 5 Lipid Panel 12/16/2024 TSH reflex Free T4 12/16/2024 UA ClnCatch+Micro w/rflx Cult 12/16/2024 Next Appt Details Provider Name:Valerio Rowdy Garnica ier, 12/25/2024 08:30:00 AM, [address] [facility], [address], [place], [place], [id number], Progress Notes * Divya STRATTONOB:1955 (69 yo F)Acc No.[id number]:12/16/2024 Progress Note Patient:?Tg STRATTON Provider:?Valerio Khanna MD :1955???Age:69 Y???Sex:Female D ate:12/16/2024 Address:[address] [place], [place] [id number] Subjective: * Chief Complaints: * ???1. Yearly fasting labs. * Medical History:? Objective: * Vitals:? Assessment: * Assessment: 1.?Blood tests for routine g eneral physical examination - Z00.00 (Primary)???2.?Hyperthyroidism - E05.90???3.?Labile hypertension - I10??? Plan: * Treatment: 2.?Hyperthyroidism?LAB: Complete Blood Count Auto Diff (Collection Date & Time - 12/16/2024 07:00 AM) ?LAB: Comprehensive [place]. Panel Fast ?LAB: Lipid Panel ?LAB: TSH reflex Free T4 ?LAB: UA ClnCatch+Micro w/rflx Cult (Collection Date & Time - 12/16/2024 07:00 AM) 3.?Labile hypertension?LAB: Complete Blood Count Auto Diff (Collection Date & Time - 12/16/2024 07:00 AM) ?LAB: Comprehensive [place]. Panel Fast ?LAB: Lipid Panel ?LAB: TSH reflex Free T4 ?LAB: UA ClnCatch+Micro w/rflx Cult (Collection Date & Time - 12/16/2024 07:00 AM) * Procedure Codes:?73600 VENIP UNCT, ROUTINE* * * The named appointment provid er may or may not be the originator of this progress note, and it is not deemed complete until electronically signed by the appointment provider. Sign off status: Pending * Provider:?Valerio Khanna MD Date:?0 12/16/2024 Generated for Gianni mendez/Kimberly/Irwin on:?12/16/2024 12:27 PM EST
--- OUTSIDE RECORDS SUMMARY | 2024-12-16 12:27 | XMS_ITS | Patient Health Record ---
Author Organization Valerio Khanna MD Address [address] [place], [place] [id number] Care Team Providers Care Ore Fielder Name Role Phone Clemencia Valerio Primary Care Provider Allergies No Known Allergies Results Component Value Reference Range Notes Glucose Fasting Reviewed date:06/19/2024 12:26:39 PM Interpretation: Performing Lab:[facility], [address] [place] [phone] Notes/Report: Glucose Fasting 102 60-99 mg/dL A fasting glucose from 100-125 mg/dl is considered impaired (pre-diabetes). Hemoglobin A1c Reviewed date:06/19/2024 12:26:01 PM Interpretation: Performing Lab:[facility], [address] [place] [phone] Notes/Report: Hemoglobin A1c % 5.4 <6.0 % Hemoglobin A1C Reference Range Adults: 4.8 - 6.0 % Non diabetic: < 6.0 % Goal: < 7.0 % Additional Action Suggested: > 8.0 % Note: Hemoglobin A1c results are invalid for patients with abnormal amounts of HbF. Blood transfusions may impact the HbA1c concentration in the patient sample. Estimated Average Glucose 108 eAG = Estimated average glucose which is %A1C expressed as average glucose, using the formula of the J2Q-Qceanpw Average Glucose study (ADAG), Diabetes Care, Vol.31,#8, 2007 Thyroid Stimulating Hormone Reviewed date:07/01/2024 11:55:14 AM Interpretation: Performing Lab:[facility], [address] [place] [phone] Notes/Report: Thyroid Stimulating Hormone 3.03 0.32-4.0 uIU/mL Note: A sustained TSH level above 2.5 uIU/mL may warrant further investigation. TSH 3rd Generation ([facility]) Lay Siddiqui Reviewed date:07/01/2024 11:55:24 AM Interpretation: Performing Lab:[facility], [address] [place] [phone] Notes/Report: Lay Siddiqui See Note Specimen held untested for 24 hours; Call to request Chemistry testing. Erythrocyte Sedimentation Ra te Reviewed date:07/01/2024 12:05:33 PM Interpretation: Performing Lab:[facility], [address] [place] [phone] Notes/Report: Erythrocyte Sedimentation Rate 2 0-20 MM/HR Patients with polycythemia and many hemoglobin abnormalities may have depressed sed rates whereas patients with anemia may have elevated sed rates. Free T4 (Free Thyroxine) Reviewed date:07/01/2024 11:56:07 AM Interpretation: Performing Lab:[facility], [address] [place] [phone] Notes/Report: Free T4 (Free Thyroxine) 1.24 0.71-1.85 ng/dL Complete Blood Count Auto Di ff (Not yet reviewed by provider) Interpretation: Performing Lab:[facility], [address] [place] [phone] Notes/Report: White Blood Count 8.9 4.8-10.8 X10*3/uL [...] (Not yet reviewed by provider) Interpretation: Performing Lab:[facility], [address] [place] [phone] Notes/Report: Urine, Clean Catch Color Urine DK YELLOW Appearance Urine Clear PH 5.5 5.0-9.0 Glucose Urine UA Negative Negative mg/dL Urine Blood Moderate (2+) Negative Specific [place] - Urine >= 1.030 1.005-1.025 Urine Protein 30 (1+) Neg-Trace mg/dL Urine Ketones Negative Negative mg/dL Nitrite Urine Negative Negative Leukocyte Esterase Urine Negative Negative RBC Urine 11-20 0-2 /HPF WBC Urine 0-5 0-5 /HPF Squamous Epithelial Cell Urine 3-5 0-2 /HPF Bacteria Urine None Seen None Seen Hyaline Casts Urine 0-2 0-2 /LPF Reason For Referral No Information Medications Medication SIG (Take, Route, Frequency, Duration) Notes Start Date End Date Status Multi Adult Gummies - as directed Orally 0 Not-Taking Aspirin 81 81 MG 1 tablet Orally Once a day for 30 day(s) Not-Taking Ibuprofen 200 MG 1 tablet with food o r milk as needed Orally Three times a day Not-Taking Levothyroxine Sodium 112 MCG TAKE 1 TABLET BY MOUTH EVERY DAY IN THE MORNING ON EMPTY STOMACH FOR 90 DAYS Active predniSONE 10 MG 1 tablet Orally Once a day for 30 days 06/26/2024 Active Immunizations Vaccine Route Administration Date Status Commravinder díaz Fluarix Quadrivalent IM Intramuscular 09/05/2019 Administravinder richter pt was given the vaccine at a [facility] in [facility]. PPSV23 (Pnemovax) IM Intramuscular 05/24/2020 Administered Influenza High Dose IM Intramuscular 07/15/2020 Administer ed Influenza High Dose IM Intramuscular 08/18/2021 Administer ed Fluarix Quadrivalent Unknown 08/18/2021 Administered SARS-COV-2 Pfizer Unknown 01/23/2021 Administered SARS-COV-2 Pfizer Unknown 02/13/2021 Administered SARS-COV-2 Pfizer Unknown 09/13/2021 Administered Fluarix Quadrivalent IM Intramuscular 11/28/2022 Administravinder richter Fluarix Quadrivalent - 150 Unknown 06/26/2024 [facility] Unknown 06/26/2024 [facility] Social History Tobacco Use: Social History Observation Description Date Details (start date - stop date) Former Smoker NA - NA Tobacco Use/Smoking Question Answer Notes Patient is a former smoker How long has it been since y ou last smoked? > 10 years Additional Findings: Tobacco Non-User Fo rmer smoker, currently using no form of tobacco Alcohol Screen Question Answer Notes Did you have a drink containing alcohol in the p ast year? No Points 0 Interpretation Negative Problems Problem Type SNOMED Code ICD Code Onset Dates Problem Status W/U Status Risk Notes Problem 83215271 Polymyalgia rheumatica (M35.3) Active confirmed Problem 443993768 Acquired hypothyroidism (E03.9) Active confirmed Problem Hyperthyroidism (56802911) Hyperthyroidism (E05.90) Active confirmed Problem Labile essential hypertension (228545456) Labile hypertension (I10) Active confirmed Problem 611081806 History of pneumonia (Z87.01) Active confirmed Problem Non-toxic single thyroid nodule (999250826) Left thyroid nodule (E04.1) Active confirmed Problem Non-toxic multinodular goiter (67227624) Multinodular goiter (nontoxic) (E04.2) Active confirmed Vital Signs Blood pressure diastolic 62 mm Hg 07/04/2024 Height 64.50 in 07/04/2024 Blood pressure systolic 124 mm Hg 07/04/2024 Weight 168 lbs 07/04/2024 BMI 28.39 kg/m2 07/04/2024 Encounters Encounter Location Date Provider Diagnosis Valerio Khanna MD [address] [place] [id number] 06/19/2024 Valerio Khanna Microscopic hematuri a R31.29 and Elevated blood sugar R73.9 Valerio Khanna MD [address] [place] [id number] 07/01/2024 Valerio Khanna Acquired hypothyroid ism E03.9 ; Polymyalgia rheumatica M35.3 and Hyperthyroidism E05.90 Valerio Khanna MD [address] [place] [id number] 12/16/2024 Valerio Khanna Blood tests for rout ine general physical examination Z00.00 ; Hyperthyroidism E05.90 and Labile hypertension I10 Valerio Khanna MD [address] [place] [phone] 12/20/2023 Valerio Khanna Microscopic hematuri a R31.29 ; Annual physical exam Z00.00 ; Elevated blood sugar R73.9 ; Hyperthyroidism E05.90 ; Labile hypertension I10 and Depression screening Z13.31 Valerio Khanna MD [address] [place] [id number] 06/26/2024 Valerio Khanna Polymyalgia rheumati ca M35.3 and Acquired hypothyroidism E03.9 Valerio Khanna MD [address] [place] [id number] 07/04/2024 Valerio Radhaardicaity Polymyalgia rheumati ca M35.3 and Hyperthyroidism E05.90 Assessments Encounter Date Diagnosis (ICD Code) Assessment Notes Treatment Notes Treatment Clinical Notes Section Notes 06/19/2024 Microscopic hematuria (ICD-10 - R31.29) 06/19/2024 Elevated blood sugar (ICD-10 - R73.9) 07/01/2024 Acquired hypothyroidism (ICD-10 - E03.9) 07/01/2024 Polymyalgia rheumatica (ICD-10 - M35.3) 12/16/2024 Blood tests for routine general physical examination (ICD-10 - Z00.00) 12/20/2023 Microscopic hematuria (ICD-10 - R31.29) will continue to monitor 12/20/2023 Annual physical exam (ICD-10 - Z00.00) labs reiewed and discussed with patient 06/26/2024 Polymyalgia rheumatica (ICD-10 - M35.3) pending diagnostic lab testing, SUSAN LEFT WITHOUT HAVING HER BLOOD DRAWN , BON LEFT ON HER HOMME PHONE TO CALL THE OFFICE . 06/26/2024 Acquired hypothyroidism (ICD-10 - E03.9) pending diagnsotic labs, patient verblaized understanding of medication and directions for use 07/04/2024 Polymyalgia rheumatica (ICD-10 - M35.3) doing much better. able to ambulate and do things that were previously impossible 07/04/2024 Hyperthyroidism (ICD-10 - E05.90) thyroid is normal at goal, will continue current regiment 07/01/2024 Hyperthyroidism (ICD-10 - E05.90) 12/16/2024 Hyperthyroidism (ICD-10 - E05.90) 12/20/2023 Elevated blood sugar (ICD-10 - R73.9) stable, no need for medication at this time stable, noneed 12/16/2024 Labile hypertension (ICD-10 - I10) 12/20/2023 Hyperthyroidism (ICD-10 - E05.90) stable, will continue current regiment 12/20/2023 Labile hypertension (ICD-10 - I10) stable, will continue to monitor 12/20/2023 Depression screening (ICD-10 - Z13.31) negative screen Plan Of Treatment Pending Test Test Name Order Date Complete Blood Count Auto Diff 5 Comprehensive [place]. Panel Fast 5 Lipid Panel 12/16/2024 TSH reflex Free T4 12/16/2024 US thyroid 12/01/2021 UA ClnCatch+Micro w/rflx Cult 12/16/2024 Next Appt Details Provider Name:Valerio cassidy, 12/25/2024 08:30:00 AM, [address] [place] [address], [address], [place], [place], [phone], Insurance Providers Payer Name Payer Address Payer Phone Subscriber Number Group Number Insured Name Patient Relationship to Insured Coverage Start Date Coverage End Date [facility] [address] [address] [place] [phone] [id number] Susan Stratton Self - patient is the insured Medical (General) History Medical History History ICD Code refuses mammogram cologard 2019 negative refused cologard and colonoscopy hematuria refuses evaluation 2023
--- OUTSIDE RECORDS SUMMARY | 2024-12-16 12:27 | XMS_ITS ---
Author Organization Valerio Khanna MD Address [address] [place], [place] [id number] Care Team Providers Care Technical Product Manager Name Role Phone Valerio Khanna Primary Care Provider Results Component Value Reference Range Notes Erythrocyte Sedimentation Ra te Reviewed date:07/01/2024 12:05:33 PM Interpretation: Performing Lab:[facility], [address] [place] [phone] Notes/Report: Erythrocyte Sedimentation Rate 2 0-20 MM/HR Patients with polycythemia and many hemoglobin abnormalities may have depressed sed rates whereas patients with anemia may have elevated sed rates. Free T4 (Free Thyroxine) Reviewed date:07/01/2024 11:56:07 AM Interpretation: Performing Lab:[facility], [address] [place] [phone] Notes/Report: Free T4 (Free Thyroxine) 1.24 0.71-1.85 ng/dL REASON FOR VISIT SED RATE, TSH REFLEX, FREE T4 Encounters Encounter Location Date Provider Diagnosis Valerio Khanna MD [address] [place] [phone] 07/01/2024 Valerio Khanna Acquired hypothyroid ism E03.9 ; Polymyalgia rheumatica M35.3 and Hyperthyroidism E05.90 Assessments Encounter Date Diagnosis (ICD Code) Assessment Notes Treatment Notes Treatment Clinical Notes Section Notes 07/01/2024 Acquired hypothyroidism (ICD-10 - E03.9) 07/01/2024 Polymyalgia rheumatica (ICD-10 - M35.3) 07/01/2024 Hyperthyroidism (ICD-10 - E05.90) Plan Of Treatment Next Appt Details Provider Name:Valerio Garnica ier, 12/25/2024 08:30:00 AM, [address] [facility], [address], [place], [place], [phone], Progress Notes * Divya STRATTONOB:1955 (69 yo F)Acc No.[id number]:07/01/2024 Progress Note Patient:?Tg STRATTON Provider:?Valerio Khanna MD :1955???Age:69 Y???Sex:Female D ate:07/01/2024 Address:[address] [place], [place] [phone] Subjective: * Chief Complaints: * ???1. SED RATE, TSH REFLEX, FREE T4. * Medical History:? Objective: * Vitals:? Assessment: * Assessment: 1.?Acquired hypothyroidism - E03.9 (Primary)???2.?Polymyalgia rheumatica - M35.3???3.?Hyperthyroidism - E05.90??? Plan: * Treatment: 2.?Polymyalgia rheumatica?LAB: Erythrocyte Sedimentation Rate (Collection Date & Time - 07/01/2024 07:45 AM) 3.?Hyperthyroidism?LAB: TSH reflex Free T4 (Order Cancelled) ?LAB: Free T4 (Free Thyroxine) (Collection Date & Time - 07/01/2024 07:45 AM) * Procedure Codes:?69355 VENIP UNCT, ROUTINE* * * The named appointment provid er may or may not be the originator of this progress note, and it is not deemed complete until electronically signed by the appointment provider. Sign off status: Pending * Provider:?Valerio Khanna MD Date:?0 07/01/2024 Generated for Gianni mendez/Kimberly/eTransmitting on:?12/16/2024 12:27 PM EST
--- OUTSIDE RECORDS SUMMARY | 2024-12-16 12:27 | XMS_ITS ---
Author Organization Valerio Khanna MD Address [address] [place], [place] [phone] Care Team Providers Care Scabbler Name Role Phone Clemencia Valerio Primary Care Provider Allergies No Known Allergies REASON FOR VISIT 1 WEEK F/U Medications Medication SIG (Take, Route, Frequency, Duration) [...] a day for 30 days 06/26/2024 Active Vital Signs Blood pressure systolic 124 mm Hg 07/04/20 24 Blood pressure diastolic 62 mm Hg 024 Height 64.50 in 07/04/2024 Weight 168 lbs 07/04/2024 BMI 28.39 kg/m2 07/04/2024 Encounters Encounter Location Date Provider Diagnosis Valerio Khanna MD [address] [place], [place] [phone] 07/04/2024 Valerio Khanna Polymyalgia rheumati ca M35.3 and Hyperthyroidism E05.90 Assessments Encounter Date Diagnosis (ICD Code) Assessment Notes Treatment Notes Treatment Clinical Notes Section Notes 07/04/2024 Polymyalgia rheumatica (ICD-10 - M35.3) doing much better. able to ambulate and do things that were previously impossible 07/04/2024 Hyperthyroidism (ICD-10 - E05.90) thyroid is normal at goal, will continue current regiment Plan Of Treatment Medication Medication Name Sig Start Date Stop Date Notes Levothyroxine Sodium 112 MCG TAKE 1 TABL ET BY MOUTH EVERY DAY IN THE MORNING ON EMPTY STOMACH FOR 90 DAYS predniSONE 10 MG 1 tablet Orally Once a day for 30 days 06/26/2024 Treatment Notes Assessment Notes Polymyalgia rheumatica doing much better . able to ambulate and do things that were previously impossible Hyperthyroidism thyroid is normal at goal, will continue current regiment Next Appt Details Provider Name:Valerio Garnica ier, 12/25/2024 08:30:00 AM, [address] [facility], [address], [place], [place], [phone], Progress Notes * Divya STRATTONOB:1955 (69 yo F)Acc No.[id number]:07/04/2024 Progress Notes Patient:?Tg Stratton Provider:?Valerio Khanna MD :1955???Age:69 Y???Sex:Female D ate:07/04/2024 Address:[address] [place], [place] [phone] Subjective: * Chief Complaints: * ???1 WEEK F/U * HPI: ???Symptom(s):? patisuhailis a 69 yo female here for one week follow up visit, is 80% better. the sensation in the shower is gone. able to climb stairs without problems/ the same jar that she could not open 2 weeks ago was able to open. had been getting so weak that she felt like her legs would collapse. * ROS:?General/Constitutional:?Denies?Chills.?Denies?Fatigue.?Denies?Fever.?Denies?Headache.?ENT:?Patient denies?decreased sense of smell , any loss of taste , sore throat.?Denies?Sore throat.?Respiratory:?Denies?Cough.?Denies?Shortness of breath at rest.?Denies?Shortness of breath with exertion.?Gastrointestinal:?Denies?Diarrhea.?Denies?Nausea.?Musculoskeletal:?Patient denies?muscle aches.?Peripheral Vascular:?Patient denies?red and blue toes.? * Medical History:? * Surgical History:? * Hospitalization/Major Diagno stic Procedure:? * Medications:?TakingLevothyro xine Sodium 112 MCG Tablet TAKE 1 TABLET BY MOUTH EVERY DAY IN THE MORNING ON EMPTY STOMACH FOR 90 DAYS predniSONE 10 MG Tablet 2 tablets Orally Once a dayTaking Levothyroxine Sodium 112 MCG Tablet TAKE 1 TABLET BY MOUTH EVERY DAY IN THE MORNING ON EMPTY STOMACH FOR 90 DAYS Taking predniSONE 10 MG Tablet 2 tablets Orally Once a dayNot-Taking/PRNIbuprofen 200 MG Tablet 1 tablet with food or milk as needed Orally Three times a dayAspirin 81 81 MG Tablet Delayed Release 1 tablet Orally Once a dayMulti Adult Gummies - Tablet Chewable as directed Orally Medication List reviewed and reconciled with the patientNot-Taking/PRN Ibuprofen 200 MG Tablet 1 tablet with food or milk as needed Orally Three times a dayNot- Taking/PRN Aspirin 81 81 MG Tablet Delayed Release 1 tablet Orally Once a dayNot-Taking/PRN Multi Adult Gummies - Tablet Chewable as directed Orally Medication List reviewed and reconciled with the patient * Allergies:?N.K.D.A.yes[Aller gies Verified] Objective: * Vitals:?Ht: 64.50, Wt:168, B CT:28.39, BP:124/62. * Examination: ???General Examination: ?GENERAL APPEARANCE:? alert, well hydrated, in no distress .?HEAD:? no evidence of any tenderness over the temperal arteries.?SKIN:? good turgor.?HEART:? no murmurs, rubs, gallops, no murmurs, rubs, gallops.?LUNGS:? no wheezes, rales, rhonchi, good air movement, good air movement.?MUSCULOSKELETAL:? no muscular tenderness.? Assessment: * Assessment: 1.?Polymyalgia rheumatica - M35.3 (Primary)?2.?Hyperthyroidism - E05.90? Plan: * Treatment: 2.?Hyperthyroidism? Continue Levothyroxine Sodium Tablet, 112 MCG, TAKE 1 TABLET BY MOUTH EVERY DAY IN THE MORNING ON EMPTY STOMACH FOR 90 DAYS.?? Notes: thyroid is normal at goal, will continue current regiment.?? * Procedure Codes:? * * Sign off status: Completed true * Provider:?Valerio Khanna MD Date:?0 07/04/2024 Generated for Gianni mendez/Kimberly/Irwin on:?12/16/2024 12:27 PM EST History and Physical Notes * HPI (History of Present Illness) Category Sub-Category Detail Notes Category Not es Symptom(s) patisera a 69 yo female here for one week follow up visit, is 80% better. the sensation in the shower is gone. able to climb stairs without problems/ the same jar that she could not open 2 weeks ago was able to open. had been getting so weak that she felt like her legs would collapse Examination Category Sub-Category Detail Notes Category Not es General Examination GENERAL APPEARANCE: alert, w ell hydrated, in no distress HEAD: no evidence of any t enderness over the temperal arteries HEART: no murmurs, rubs, ga llops, no murmurs, rubs, gallops LUNGS: no wheezes, rales, r honchi, good air movement, good air movement SKIN: good turgor MUSCULOSKELETAL: no muscular tenderne ss
== END 2024-12-16 11:01 | disposition home or self-care (01) ==
LOC: HO.LNP 11:00
PROVIDERS: Visit Provider Internal Medicine
DX: Z00.00 Encounter for general adult medical examination without abnormal findings (principal); E05.90 Thyrotoxicosis, unspecified without thyrotoxic crisis or storm; I10 Essential (primary) hypertension
CPT/HCPCS: 80053; 80061; 81001; 84443; 85025

== ENCOUNTER 2024-12-25 11:52 | Outpatient (REF) | payer MEDICARE, SELFPAY ==
[2024-12-25 11:59] LABS: MANUAL DIFF FLAG NO
[2024-12-25 12:13] LABS: Basophils Absolute Auto 0.1 X10*3/uL (0.0-0.2); Basophils Percent Auto 0.8 % (0-2); Eosinophils Absolute Auto 0.1 X10*3/uL (0.0-0.4); Eosinophils Percent Auto 1.4 % (0-4); Hematocrit 50.2 % (37.0-47.0); Hemoglobin 17.2 g/dl (12.0-16.0); Imm Gran Pct Auto 1.1 % (0.0-0.4); Lymphocytes Absolute Auto 1.2 X10*3/uL (1.2-4.9); Lymphocytes Percent Auto 13.4 % (20-40); Mean Corpuscular HGB Conc 34.3 g/dl (31.0-35.0); Mean Corpuscular Volume 90.5 fL (80.0-98.0); Mean Platelet Volume 10.1 fL (9.4-12.3); Monocytes Absolute Auto 0.3 X10*3/uL (0.1-1.2); Monocytes Percent Auto 3.5 % (2-11); Neutrophils Absolute Auto 7.1 x10*3/uL (2.0-8.3); Neutrophils Percent Auto 79.8 % (45-73); Platelet Count 247 X10*3/uL (160-400); Red Blood Count 5.55 X10*6/uL (4.20-5.50); Red Cell Distribution Width 12.9 % (11.0-16.0); White Blood Count 8.9 X10*3/uL (4.8-10.8)
--- OUTSIDE RECORDS SUMMARY | 2024-12-25 13:05 | XMS_ITS ---
Author Organization Valerio Khanna MD Address [address] [place], [place] [phone] Care Team Providers Care Wire Drawing Machine Operator Name Role Phone Clemencia Valerio Primary Care Provider [phone] Results Component Value Reference Range Notes Complete Blood Count Auto Di ff Reviewed date:12/16/2024 12:47:46 PM Interpretation: Performing Lab:[facility], [address] [place] [phone] Notes/Report: White Blood Count 8.9 4.8-10.8 X10*3/uL [...] 0.0-0.012 X10*3/uL UA ClnCatch+Micro w/rflx Cul t Reviewed date:12/25/2024 10:12:36 AM Interpretation:12-25-24 Performing Lab:[facility], [address] [place] [phone] Notes/Report: Urine, Clean Catch Color Urine DK YELLOW Appearance Urine Clear PH 5.5 5.0-9.0 Glucose Urine UA Negative Negative mg/dL Urine Blood Moderate (2+) Negative Specific [place] - Urine >= 1.030 1.005-1.025 Urine Protein 30 (1+) Neg-Trace mg/dL Urine Ketones Negative Negative mg/dL Nitrite Urine Negative Negative Leukocyte Esterase Urine Negative Negative RBC Urine 11-20 0-2 /HPF WBC Urine 0-5 0-5 /HPF Squamous Epithelial Cell Urine 3-5 0-2 /HPF Bacteria Urine None Seen None Seen Hyaline Casts Urine 0-2 0-2 /LPF REASON FOR VISIT yearly fasting labs Medications Medication SIG (Take, Route, Frequency, Duration) Notes Start Date End Date Status Ibuprofen 200 MG 1 tablet with food o r milk as needed Orally Three times a day Not-Taking Aspirin 81 81 MG 1 tablet Orally Once a day for 30 day(s) Not-Taking predniSONE 10 MG 1 tablet Orally Once a day for 30 days 06/26/2024 Active Multi Adult Gummies - as directed Orally 0 Not-Taking Levothyroxine Sodium 112 MCG TAKE 1 TABLET BY MOUTH EVERY DAY IN THE MORNING ON EMPTY STOMACH FOR 90 DAYS Active Encounters Encounter Location Date Provider Diagnosis Valerio Khanna MD [address] [place] [address] Drive [address] [place], [place] [phone] 12/16/2024 Valerio Khanna Blood tests for rout [...] Treatment Pending Test Test Name Order Date Comprehensive Christopher. Panel Fast Lipid Panel 12/16/2024 TSH reflex Free T4 12/16/2024 Next Appt Details Provider Name:Valerio Garnica ier, 01/23/2025 09:00:00 AM, [address] [place] [address], [address], [phone], Provider Name:Valeroi Garnica ier, 12/22/2025 07:15:00 AM, [address] [place] [address], [address], [phone], Provider Name:Valerio Garnica ier, 12/28/2025 10:30:00 AM, [address] [place] [address], [address], [phone], Progress Notes * Divya STRATTONOB:1955 (69 yo F)Acc No.[id number]:12/16/2024 Progress Note Patient:?Tg STRATTON Provider:?Valerio Khanna MD :1955???Age:69 Y???Sex:Female D ate:12/16/2024 Address:[address] [place], [place] [phone] Subjective: * Chief Complaints: * ???1. Yearly fasting labs. * Medical History:? * Medications:?Taking predniSO NE 10 MG Tablet 1 tablet Orally Once a day , Taking Levothyroxine Sodium 112 MCG Tablet TAKE 1 TABLET BY MOUTH EVERY DAY IN THE MORNING ON EMPTY STOMACH FOR 90 DAYS , Not-Taking/PRN Ibuprofen 200 MG Tablet 1 tablet with food or milk as needed Orally Three times a day , Not-Taking/PRN Aspirin 81 81 MG Tablet Delayed Release 1 tablet Orally Once a day , Not-Taking/PRN Multi Adult Gummies - Tablet Chewable as directed Orally Objective: * Vitals:? Assessment: * Assessment: 1.?Blood tests for routine g eneral physical examination - Z00.00 (Primary)???2.?Hyperthyroidism - E05.90???3.?Labile hypertension - I10??? Plan: * Treatment: 2.?Hyperthyroidism?LAB: Comprehensive Christopher. Panel Fast ?LAB: Lipid Panel ?LAB: TSH reflex Free T4 ?LAB: Complete Blood Count Auto Diff (Collection Date & Time - 12/16/2024 07:00 AM) ?LAB: UA ClnCatch+Micro w/rflx Cult (Collection Date & Time - 12/16/2024 07:00 AM) 3.?Labile hypertension?LAB: Comprehensive Christopher. Panel Fast ?LAB: Lipid Panel ?LAB: TSH reflex Free T4 ?LAB: Complete Blood Count Auto Diff (Collection Date & Time - 12/16/2024 07:00 AM) ?LAB: UA ClnCatch+Micro w/rflx Cult (Collection Date & Time - 12/16/2024 07:00 AM) * Procedure Codes:?68090 VENIP UNCT, ROUTINE* * * The named appointment provid er may or may not be the originator of this progress note, and it is not deemed complete until electronically signed by the appointment provider. Sign off status: Pending * Provider:?Valerio Khanna MD Date:?0 12/16/2024 Generated for Gianni mendez/Kimberly/eTmarciasmitting on:?12/25/2024 01:04 PM EST
--- OUTSIDE RECORDS SUMMARY | 2024-12-25 13:05 | XMS_ITS ---
Author Organization Valerio Khanna MD Address [address] [place], [place] [id number] Care Team Providers Care Collection Card Clerk Name Role Phone Clemencia Valerio Primary Care Provider [phone] Allergies No Known Allergies REASON FOR VISIT [...] Khanna MD [address] [place], [place] [id number] 07/04/2024 Valerio Khanna Polymyalgia rheumati ca M35.3 [...] current regiment Next Appt Details Provider Name:Valerio cassidy, 01/23/2025 09:00:00 AM, [address] [place] [address], [address], [place], [place], [id number], Provider Name:Valerio cassidy, 12/22/2025 07:15:00 AM, [address] [place] [address], Suite [facility], [place], [place], [phone], Provider Name:Valerio cassidy, 12/28/2025 10:30:00 AM, [address] [place] [address], Suite [facility], [place], [place], [phone], Progress Notes * LAVONDivyaOB:1955 (69 yo F)Acc No.[id number]:07/04/2024 Progress Notes Patient:?Tg Stratton Provider:?Valerio Khanna MD :1955???Age:69 Y???Sex:Female D ate:07/04/2024 Address:[address] [place], [place] [id number] Subjective: * Chief Complaints: * ???1 WEEK F/U * HPI: ???Symptom(s):? patioentis a 69 yo female here for one [...] Verified] Objective: * Vitals:?Ht: 64.50, Wt:168, B MA:28.39, BP:124/62. * Examination: ???General Examination: ?GENERAL APPEARANCE:? [...] Khanna MD Date:?0 07/04/2024 Generated for Gianni mendez/Kimberly/eTmarciasmitting on:?12/25/2024 01:05 PM EST History and Physical Notes * HPI (History of Present Illness) Category Sub-Category Detail Notes Category Not es Symptom(s) patioentis a 69 yo female here for one [...]
--- OUTSIDE RECORDS SUMMARY | 2024-12-25 13:05 | XMS_ITS ---
Author Organization Valerio Khanna MD Address [address] [place], [place] [id number] Care Team Providers Care Coating And Embossing Unit Operator Name Role Phone Clemencia Valerio Primary Care Provider [phone] Allergies No Known Allergies Results Component Value Reference Range Notes Complete Blood Count Auto Di ff (Not yet reviewed by provider) Interpretation: Performing Lab:[facility], [address] [place] [id number] Notes/Report: White Blood Count 8.9 4.8-10.8 X10*3/uL Red Blood Count 5.55 4.20-5.50 X10*6/uL Hemoglobin 17.2 12.0-16.0 g/dl Hematocrit 50.2 37.0-47.0 % Mean Corpuscular Volume 90.5 80.0-98.0 fL Mean Corpuscular Hemoglobin 31.0 27.0-33.0 pg Mean Corpuscular HGB Conc 34.3 31.0-35.0 g/dl Red Cell Distribution Width 12.9 11.0-16.0 % Platelet Count 247 160-400 X10*3/uL Mean Platelet Volume 10.1 9.4-12.3 fL Neutrophils Percent Auto 79.8 45-73 % Imm Gran Pct Auto 1.1 0.0-0.4 % Lymphocytes Percent Auto 13.4 20-40 % Monocytes Percent Auto 3.5 2-11 % Eosinophils Percent Auto 1.4 0-4 % Basophils Percent Auto 0.8 0-2 % NRBC Pct Auto 0.0 0.0-0.2 /100WBC Neutrophils Absolute Auto 7.1 2.0-8.3 x10*3/u L Imm Gran Abs Auto 0.10 0.00-0.03 X10*3/uL Lymphocytes Absolute Auto 1.2 1.2-4.9 X10*3/u L Monocytes Absolute Auto 0.3 0.1-1.2 X10*3/uL Eosinophils Absolute Auto 0.1 0.0-0.4 X10*3/u L Basophils Absolute Auto 0.1 0.0-0.2 X10*3/uL NRBC Abs Auto 0.000 0.0-0.012 X10*3/uL Reason For Referral Reason please eval and sasha t Diagnosis 1 Microscopic hematuri a (R31.29) Referral Organization Valerio Khanna MD Referring Provider First Name Valerio Referring Provider Last Name Clemencia Referring Provider Speciality Internal M edicine Referred Provider Marques Patterson Referred Provider Specialty Urology Referral Priority Routine REASON FOR VISIT annual visit/ must see lab Medications Medication SIG (Take, Route, Frequency, Duration) Notes Start Date End Date Status Levothyroxine Sodium 112 MCG TAKE 1 TABLET BY MOUTH EVERY DAY IN THE MORNING ON EMPTY STOMACH FOR 90 DAYS Active predniSONE 10 MG 1 tablet Orally Once a day for 30 days 06/26/2024 Not-Taking Aspirin 81 81 MG 1 tablet Orally Once a day for 30 day(s) Not-Taking Ibuprofen 200 MG 1 tablet with food o r milk as needed Orally Three times a day Not-Taking Multi Adult Gummies - as directed Orally 0 Not-Taking Social History Tobacco Use: Social History Observation [...] ast year? No Points 0 Interpretation Negative Vital Signs Blood pressure systolic 148 mm Hg 12/25/19 25 Blood pressure diastolic 80 mm Hg 025 Height 64.50 in 12/25/2024 Weight 182 lbs 12/25/2024 BMI 30.75 kg/m2 12/25/2024 weight is up 14 pounds since 830-24 Encounters Encounter Location Date Provider Diagnosis Valerio Khanna MD [address] [place] [address] [address] [place], [place] [id number] 12/25/2024 Valerio Khanna Acquired hypothyroidism E03.9 ; Lethargy R53.83 ; Leg weakness, bilateral R29.898 ; Microscopic hematuria R31.29 and Polycythemia D75.1 Assessments Encounter Date Diagnosis (ICD Code) Assessment Notes Treatment Notes Treatment Clinical Notes Section Notes 12/25/2024 Acquired hypothyroidism (ICD-10 - E03.9) good tsh 12/25/2024 Lethargy (ICD-10 - R53.83) 12/25/2024 Leg weakness, bilateral (ICD-10 - R29.898) not clear that it is pmr/ did not get much better on prednisone. no temproral artery tenderness 12/25/2024 Microscopic hematuria (ICD-10 - R31.29) referral to urology in [place] 12/25/2024 Polycythemia (ICD-10 - D75.1) Plan Of Treatment Treatment Notes Assessment Notes Acquired hypothyroidism good tsh Leg weakness, bilateral not clear that i t is pmr/ did not get much better on prednisone. no temproral artery tenderness Microscopic hematuria referral to urolog y in [place] Pending Test Test Name Order Date Complete Blood Count Auto Diff Referrals Referral Date Details 12/25/2024 12/25/2024, please e jeanine and treat, Maqrues Murillo Next Appt Details Follow Up: 4 Weeks, Reason: Provider Name:Valerio cassidy, 01/23/2025 09:00:00 AM, [address] [place] [address], Suite [facility], [place], [place], [phone], Provider Name:Valerio cassidy, 12/22/2025 07:15:00 AM, [address] [place] [address], Suite [facility], [place], [place], [phone], Provider Name:Valerio cassidy, 12/28/2025 10:30:00 AM, [address] [place] [address], Suite [facility], [place], [place], [phone], Progress Notes * Roger STRATTON:1955 (69 yo F)Acc No.[id number]:12/25/2024 Progress Notes Patient:Tg FRIEND Provider:?Valerio Khanna MD :1955???Age:69 Y???Sex:Female D ate:12/25/2024 Address:[address] [place] [address] Subjective: * Chief Complaints: * ???1. Annual visit/ must see lab. * HPI: ???Depression Screening:?PHQ-9?Little interest or pleasure in doing things?Not at all,?Feeling down, depressed, or hopeless?Not at all,?Trouble falling or staying asleep, or sleeping too much?Not at all,?Feeling tired or having little energy?Not at all,?Poor appetite or overeating?Not at all,?Feeling bad about yourself or that you are a failure, or have let yourself or your family down?Not at all,?Trouble concentrating on things, such as reading the newspaper or watching television?Not at all,?Moving or speaking so slowly that other people could have noticed; or the opposite, being so fidgety or restless that you have been moving around a lot more than usual?Not at all,?Thoughts that you would be better off or of hurting yourself in some way?Not at all,?Total Score?0.?still having weakness in legs. prednisone helped a little. problem is only in legs. prednisone stopped 2 weeks ago. worse off the prednisone/ not sleeping well. bowels and urine good/ under a lot of stress caring for her? first who has stage 4 cancer. ???Communication Needs:?Communication Needs?Does the patient have a hearing impairment?No,?Does the patient have a vision impairment??Yes,?If yes, what is the vision impairment??Glasses,?Does the patient have a cognition impairment??No.?Fall Risk:?History?Have you had any falls with injury in the past year??No,?Have you had two or more falls in the past year??No.?SDOH Questions:?SDOH Questions?In the past year have you been worried about losing housing??No,?In the past year have you or any family members you live with been unable to get any of the following when it was really needed? Check all that apply:?None.? * ROS:?General/Constitutional:?Change in appetite?denies.?Chills?denies.?Fever?denies.?Ophthalmologic:?Blurred vision?denies.?Discharge?denies.?Pain?denies.?ENT:?Decreased hearing?denies.?Sore throat?denies.?Swollen glands?denies.?Endocrine:?Cold intolerance?denies.?Excessive thirst?denies.?Heat intolerance?denies.?Weight loss?denies.?Respiratory:?Cough?denies.?Shortness of breath at rest?denies.?Shortness of breath with exertion?denies.?Wheezing?denies.?Cardiovascular:?Chest pain at rest?denies.?Chest pain with exertion?denies.?Irregular heartbeat?denies.?Shortness of breath?denies.?Gastrointestinal:?Abdominal pain?denies.?Change in bowel habits?denies.?Diarrhea?denies.?Nausea?denies.?Rectal bleeding?denies.?Vomiting?denies .?Genitourinary:?Blood in urine?denies.?Difficulty urinating?denies.?Frequent urination?denies.?Urinary incontinence?Denies.?Musculoskeletal:?Painful joints?denies.?Weakness?denies.?Skin:?Dry skin?denies.?Itching?denies.?Denies?Mole(s),? changes in moles, new moles or any lesions of concern.?Denies?Photosensitivity.?Rash?denies.?Neurologic:?Dizziness?denies.?Fainting?denies.?Headache?denies.? * Medical History:?Refuses liv mogram, Cologard 2019 negative refused cologard and colonoscopy refused 2024, Hematuria refuses evaluation 2023. * Family History:?Father: dece ased 84 yrs, diagnosed with CHF, Hypertension, Diabetes.?Mother: 91 yrs, diagnosed with Cancer, Hypertension.?2 sister(s) . .? No pertinent family medical history, No pertinent family medical history. * Social History:?Tobacco Use:?Tobacco Use/Smoking?Patient is a?former smoker,?How long has it been since you last smoked??> 10 years,?Additional Findings: Tobacco Non-User?Former smoker, currently using no form of tobacco.?Drugs/Alcohol:?Alcohol Screen?Did you have a drink containing alcohol in the past year??No,?Points?0,?Interpretation?Negative.?Miscellaneous:?Caffeine: yes, frequency:, 1-2 cups per day. Children: no. Community involvements: no. Exercise: yes, occasional walking the dog's(usually not in the winter). Housing: owning. Living with: spouse. Marital status: . Occupation: works full-time. Pets: dogs X2. Travel outside of the [place]: no. * Medications:?Taking Levothyr oxine Sodium 112 MCG Tablet TAKE 1 TABLET BY MOUTH EVERY DAY IN THE MORNING ON EMPTY STOMACH FOR 90 DAYS , Not-Taking/PRN predniSONE 10 MG Tablet 1 tablet Orally Once a day , Not-Taking/PRN Ibuprofen 200 MG Tablet 1 tablet with food or milk as needed Orally Three times a day , Not-Taking/PRN Aspirin 81 81 MG Tablet Delayed Release 1 tablet Orally Once a day , Not-Taking/PRN Multi Adult Gummies - Tablet Chewable as directed Orally , Medication List reviewed and reconciled with the patient * Allergies:?N.K.D.A. Objective: * Vitals:?Ht: 64.50, Wt: 182, BMI:30.75, BP:148/80, Wt-k.55. weight is up 14 pounds since 07-04-24. * ???Past Orders: ???Lab:Complete Blood Count Auto Diff (Order Date - 12/16/2024) (Collection Date & Time - 12/16/2024 07:00 AM) ? Value Reference Range ?White Blood Count 8.9 4. 8-10.8 - X10*3/uL ?Red Blood Count 5.65 H 4.20 -5.50 - X10*6/uL ?Hemoglobin 17.7 H 12.0-16.0 - g/dl ?Hematocrit 52.5 H 37.0-47.0 - % ?Mean Corpuscular Volume 92.9 80.0-98.0 - fL ?Mean Corpuscular Hemoglobin 31.3 27.0-33.0 - pg ?Mean Corpuscular HGB Conc 33.7 31.0-35.0 - g/dl ?Red Cell Distribution Width 13.2 11.0-16.0 - % ?Platelet Count 248 160-4 00 - X10*3/uL ?Mean Platelet Volume 9.9 9.4-12.3 - fL ?Neutrophils Percent Auto 58.3 45-73 - % ?Imm Gran Pct Auto 1.2 H 0. 0-0.4 - % ?Lymphocytes Percent Auto 27.8 20-40 - % ?Monocytes Percent Auto 8.3 2-11 - % ?Eosinophils Percent Auto 3.8 0-4 - % ?Basophils Percent Auto 0.6 0-2 - % ?NRBC Pct Auto 0.0 0.0-0. 2 - /100WBC ?Neutrophils Absolute Auto 5.2 2.0-8.3 - x10*3/uL ?Imm Gran Abs Auto 0.11 H 0. 00-0.03 - X10*3/uL ?Lymphocytes Absolute Auto 2.5 1.2-4.9 - X10*3/uL ?Monocytes Absolute Auto 0.7 0.1-1.2 - X10*3/uL ?Eosinophils Absolute Auto 0.3 0.0-0.4 - X10*3/uL ?Basophils Absolute Auto 0.1 0.0-0.2 - X10*3/uL ?NRBC Abs Auto 0.000 0.0-0. 012 - X10*3/uL * Examination: ???General Examination: ?GENERAL APPEARANCE:?well developed, well nourished, in no acute distress.?HEAD:?normocephalic, atraumatic.?EYES:?pupils equal, round, reactive to light and accommodation, sclera non-icteric.?EARS:?normal.?ORAL CAVITY:?mucosa moist.?THROAT:?clear.?NECK/THYROID:?neck supple, full range of motion, no cervical lymphadenopathy, no bruits.?SKIN:?warm and dry, no suspicious lesions.?HEART:?regular rate and rhythm, S1, S2 normal, no murmurs.?LUNGS:?clear to auscultation bilaterally.?BREASTS:?declined.?ABDOMEN:?soft, nontender, nondistended, bowel sounds present, normal, no organomegaly , no masses palpable.?RECTAL EXAM:?declined.?FEMALE GENITOURINARY:?done by solution advisor.?EXTREMITIES:?no clubbing, cyanosis, or edema.?NEUROLOGIC:?nonfocal, motor strength normal upper and lower extremities, sensory exam intact.? Assessment: * Assessment: 1.?Acquired hypothyroidism - E03.9 (Primary)???2.?Lethargy - R53.83???3.?Leg weakness, bilateral - R29.898???4.?Microscopic hematuria - R31.29???5.?Polycythemia - D75.1??? Plan: * Treatment: 2.?Leg weakness, bilateral? Notes: not clear that it is pmr/ did not get much better on prednisone. no temproral artery tenderness?? 3.?Microscopic hematuria? Notes: referral to urology in [place]? Referral To:Marques Murillo??Urology ?Reason:please eval and treat * Procedure Codes:?88748 VENIP UNCT, ROUTINE* * Follow Up:?4 Weeks * * The named appointment provid er may or may not be the originator of this progress note, and it is not deemed complete until electronically signed by the appointment provider. Sign off status: Pending * Provider:?Valerio Khanna MD Date:?0 12/25/2024 Generated for Gianni mendez/Kimberly/eTmarciasmitting on:?12/25/2024 01:05 PM EST History and Physical Notes * HPI (History of Present Illness) Category Sub-Category Detail Notes Category Not es Depression Screening PHQ-9 Little inte rest or pleasure in doing things: Not at all still having weakness in legs. prednisone helped a little. problem is only in legs. prednisone stopped 2 weeks ago. worse off the prednisone/ not sleeping well. bowels and urine good/ under a lot of stress caring for her first who has stage 4 cancer Feeling down, depressed, or hopeless: No t at all Trouble falling or staying asleep, or sl eeping too much: Not at all Feeling tired or having little energy: N ot at all Poor appetite or overeating: Not at all Feeling bad about yourself o r that you are a failure, or have let yourself or your family down: Not at all Trouble concentrating on thi ngs, such as reading the newspaper or watching television: Not at all Moving or speaking so slowly that other people could have noticed; or the opposite, being so fidgety or restless that you have been moving around a lot more than usual: Not at all Thoughts that you would be b liu off or of hurting yourself in some way: Not at all Total Score: 0 SDOH Questions SDOH Questions In the past year have you been worried about losing housing?: No In the past year have you or any family members you live with been unable to get any of the following when it was really needed? Check all that apply:: None Fall Risk History Have you had any falls with injury i n the past year?: No Have you had two or more falls in the year?: No Communication Needs Communication Needs Does the patient have a hearing impairment: No Does the patient have a vision impairmen t?: Yes ?If yes, what is the vision impairment?: Glasses Does the patient have a cognition impair ment?: No Examination Category Sub-Category Detail Notes Category Not es General Examination GENERAL APPEARANCE: well dev eloped, well nourished, in no acute distress HEAD: normocephalic, atrau matic EYES: pupils equal, round, reactive to light and accommodation, sclera non- icteric EARS: normal THROAT: clear NECK/THYROID: neck supple, full ra nge of motion, no cervical lymphadenopathy, no bruits HEART: regular rate and rhy thm, S1, S2 normal, no murmurs LUNGS: clear to auscultatio n bilaterally ABDOMEN: soft, nontender, non distended, bowel sounds present, normal, no organomegaly , no masses palpable NEUROLOGIC: nonfocal, motor stre ngth normal upper and lower extremities, sensory exam intact SKIN: warm and dry, no starla picious lesions EXTREMITIES: no clubbing, cyanosi s, or edema BREASTS: declined RECTAL EXAM: declined FEMALE GENITOURINARY: done by solution advisor ORAL CAVITY: mucosa moist Consultation Request Notes Referral Date Referring Provider Referred Provider Not es 12/25/2024 Valerio Khanna [facility] eval and treat
--- OUTSIDE RECORDS SUMMARY | 2024-12-25 13:05 | XMS_ITS | Patient Health Record ---
Author Organization Valerio Khanna MD Address [address] [place], [place] [id number] Care Team Providers Care Shade Classifier Name Role Phone Clemencia Valerio Primary Care Provider Allergies No Known Allergies Results Component Value Reference Range Notes Glucose Fasting Reviewed date:06/19/2024 12:26:39 PM Interpretation: Performing Lab:[facility], [address] [place] [phone] Notes/Report: Glucose Fasting 102 60-99 mg/dL A fasting glucose from 100-125 mg/dl is considered impaired (pre-diabetes). Hemoglobin A1c Reviewed date:06/19/2024 12:26:01 PM Interpretation: Performing Lab:[facility], [address] [place] [phone] Notes/Report: Hemoglobin A1c % 5.4 <6.0 % [...] average glucose, using the formula of the [id number] Average Glucose study (ADAG), Diabetes Care, Vol.31,#8, 2007 Thyroid Stimulating Hormone Reviewed date:07/01/2024 11:55:14 AM Interpretation: Performing Lab:[facility], [address] [place] [phone] Notes/Report: Thyroid Stimulating Hormone 3.03 0.32-4.0 uIU/mL Note: A sustained TSH level above 2.5 uIU/mL may warrant further investigation. TSH 3rd Generation ([facility]) Lay Siddiqui Reviewed date:07/01/2024 11:55:24 AM Interpretation: Performing Lab:[facility], [address] [place] [phone] Notes/Report: Lay Siddiqui See Note Specimen held untested for 24 hours; Call to request Chemistry testing. Erythrocyte Sedimentation Ra te Reviewed date:07/01/2024 12:05:33 PM Interpretation: Performing Lab:[facility], [address] [place] [phone] Notes/Report: Erythrocyte Sedimentation Rate 2 0-20 MM/HR Patients with polycythemia and many hemoglobin abnormalities may have depressed sed rates whereas patients with anemia may have elevated sed rates. Free T4 (Free Thyroxine) Reviewed date:07/01/2024 11:56:07 AM Interpretation: Performing Lab:[facility], [address] [place] [phone] Notes/Report: Free T4 (Free Thyroxine) 1.24 0.71-1.85 ng/dL Complete Blood Count Auto Di ff Reviewed date:12/16/2024 12:47:46 PM Interpretation: Performing Lab:[facility], [address] [place] [phone] Notes/Report: White Blood Count 8.9 4.8-10.8 X10*3/uL [...] t Reviewed date:12/25/2024 10:12:36 AM Interpretation:12-25-24 Performing Lab:[address] [phone] Notes/Report: Urine, Clean Catch Color Urine DK YELLOW Appearance Urine Clear PH 5.5 5.0-9.0 Glucose Urine UA Negative Negative mg/dL Urine Blood Moderate (2+) Negative Specific [place] - Urine >= 1.030 1.005-1.025 Urine Protein 30 (1+) Neg-Trace mg/dL Urine Ketones Negative Negative mg/dL Nitrite Urine Negative Negative Leukocyte Esterase Urine Negative Negative RBC Urine 11-20 0-2 /HPF WBC Urine 0-5 0-5 /HPF Squamous Epithelial Cell Urine 3-5 0-2 /HPF Bacteria Urine None Seen None Seen Hyaline Casts Urine 0-2 0-2 /LPF Complete Blood Count Auto Di ff (Not yet reviewed by provider) Interpretation: Performing Lab:[address] [phone] Notes/Report: White Blood Count 8.9 4.8-10.8 X10*3/uL [...] Referred Provider Specialty Urology Referral Priority Routine Medications Medication SIG (Take, Route, Frequency, Duration) [...] Gummies - as directed Orally 0 Not-Taking Immunizations Vaccine Route Administration Date Status Commravinder díaz Fluarix Quadrivalent IM Intramuscular 09/05/2019 Adminnikita richter pt was given the vaccine at a [facility] in [facility]. PPSV23 (Pnemovax) IM Intramuscular 05/24/2020 Administered Influenza High Dose IM Intramuscular 07/15/2020 Administer ed Influenza High Dose IM Intramuscular 08/18/2021 Administer ed Fluarix Quadrivalent Unknown 08/18/2021 Administered SARS-COV-2 Pfizer Unknown 01/23/2021 Administered SARS-COV-2 Pfizer Unknown 02/13/2021 Administered SARS-COV-2 Pfizer Unknown 09/13/2021 Administered Fluarix Quadrivalent IM Intramuscular 11/28/2022 Adminnikita richter Fluarix Quadrivalent - 150 Unknown 06/26/2024 [...] Problem Status W/U Status Risk Notes Problem [id number] Polymyalgia rheumatica (M35.3) Active confirmed Problem 430897777 Acquired hypothyroidism (E03.9) Active confirmed Problem Hyperthyroidism (79033266) Hyperthyroidism (E05.90) Active confirmed Problem Labile essential hypertension (416632475) Labile hypertension (I10) Active confirmed Problem 179041147 History of pneumonia (Z87.01) Active confirmed Problem Non-toxic single thyroid nodule (823533024) Left thyroid nodule (E04.1) Active confirmed Problem Non-toxic multinodular goiter (18907437) Multinodular goiter (nontoxic) (E04.2) Active confirmed Vital Signs Blood pressure diastolic 80 mm Hg 12/25/2024 isabell ght is up 14 pounds since 07-04-24 Height 64.50 in 12/25/2024 weight is up 14 pounds since 8-30-24 Blood pressure systolic 148 mm Hg 12/25/2024 dawn ht is up 14 pounds since 07-04-24 Weight 182 lbs 12/25/2024 weight is up 14 pounds since 07-04-24 BMI 30.75 kg/m2 12/25/2024 weight is up 14 pounds since 07-04-24 Encounters Encounter Location Date Provider Diagnosis Valerio Khanna MD [address] [place] [id number] 06/19/2024 Valerio Khanna Microscopic hematuri a R31.29 and Elevated blood sugar R73.9 Valerio Khanna MD [address] [place] [id number] 07/01/2024 Valerio Khanna Acquired hypothyroid ism E03.9 ; Polymyalgia rheumatica M35.3 and Hyperthyroidism E05.90 Valerio Khanna MD [address] [place] [id number] 12/16/2024 Valerio Khanna Blood tests for rout ine general physical examination Z00.00 ; Hyperthyroidism E05.90 and Labile hypertension I10 Valerio Khanna MD [address] [place] [id number] 12/25/2024 Valerio Khanna Acquired hypothyroid ism E03.9 ; Lethargy R53.83 ; Leg weakness, bilateral R29.898 ; Microscopic hematuria R31.29 and Polycythemia D75.1 Valerio Khanna MD [address] [place] [id number] 06/26/2024 Valerio Khanna Polymyalgia rheumati ca M35.3 and Acquired hypothyroidism E03.9 Valerio Khanna MD [address] [place] [address] [id number] 07/04/2024 Valerio Khanna Polymyalgia rheumati ca M35.3 and Hyperthyroidism E05.90 Assessments Encounter Date Diagnosis (ICD Code) Assessment Notes Treatment Notes Treatment Clinical Notes Section Notes 06/19/2024 Microscopic hematuria (ICD-10 - R31.29) 06/19/2024 Elevated blood sugar (ICD-10 - R73.9) 07/01/2024 Acquired hypothyroidism (ICD-10 - E03.9) 07/01/2024 Polymyalgia rheumatica (ICD-10 - M35.3) 12/16/2024 Blood tests for routine general physical examination (ICD-10 - Z00.00) 12/25/2024 Acquired hypothyroidism (ICD-10 - E03.9) good tsh 12/25/2024 Lethargy (ICD-10 - R53.83) 06/26/2024 Polymyalgia rheumatica (ICD-10 - M35.3) pending [...] - E05.90) 12/16/2024 Hyperthyroidism (ICD-10 - E05.90) 12/25/2024 Leg weakness, bilateral (ICD-10 - R29.898) not clear that it is pmr/ did not get much better on prednisone. no temproral artery tenderness 12/16/2024 Labile hypertension (ICD-10 - I10) 12/25/2024 Microscopic hematuria (ICD-10 - R31.29) referral to urology in [place] 12/25/2024 Polycythemia (ICD-10 - D75.1) Plan Of Treatment Pending Test Test Name Order Date Complete Blood Count Auto Diff 5 Comprehensive [place]. Panel Fast 5 Lipid Panel 12/16/2024 TSH reflex Free T4 12/16/2024 US thyroid 12/01/2021 Next Appt Details Provider Name:Valerio cassidy, 01/23/2025 09:00:00 AM, [address] [place] [address], [address], [place], [place], [phone], Provider Name:Valerio cassidy, 12/22/2025 07:15:00 AM, [address] [place] [address], [address], [place], [place], [phone], Provider Name:Valerio cassidy, 12/28/2025 10:30:00 AM, [address], [address], [place], [place], [phone], Insurance Providers Payer Name Payer Address Payer Phone Subscriber Number Group Number Insured Name Patient Relationship to Insured Coverage Start Date Coverage End Date [facility] [address] NATALIIA Brooks [phone] [id number] Susan Stratton Self - patient is the insured Medical (General) History Medical History History ICD Code refuses mammogram cologard 2019 negative refused cologard and colonoscopy refused 2024 hematuria refuses evaluation 2023
== END 2024-12-25 11:53 | disposition home or self-care (01) ==
LOC: HO.LNP 11:52
PROVIDERS: Visit Provider Internal Medicine
DX: E03.9 Hypothyroidism, unspecified (principal)
CPT/HCPCS: 85025

== ENCOUNTER 2025-02-24 13:36 | Outpatient (REF) | payer MEDICARE, SELFPAY ==
[2025-02-24 13:38] LABS: MANUAL DIFF FLAG NO
[2025-02-24 13:49] LABS: Basophils Percent Auto 0.5 % (0-2); Eosinophils Absolute Auto 0.4 X10*3/uL (0.0-0.4); Hematocrit 48.3 % (37.0-47.0); Hemoglobin 16.6 g/dl (12.0-16.0); Imm Gran Abs Auto 0.05 X10*3/uL (0.00-0.03); Imm Gran Pct Auto 0.6 % (0.0-0.4); Lymphocytes Percent Auto 25.6 % (20-40); Mean Corpuscular HGB Conc 34.4 g/dl (31.0-35.0); Mean Corpuscular Hemoglobin 30.4 pg (27.0-33.0); Mean Corpuscular Volume 88.5 fL (80.0-98.0); Mean Platelet Volume 10.2 fL (9.4-12.3); Monocytes Absolute Auto 0.6 X10*3/uL (0.1-1.2); Monocytes Percent Auto 8.3 % (2-11); Neutrophils Absolute Auto 4.6 x10*3/uL (2.0-8.3); Platelet Count 234 X10*3/uL (160-400); Red Blood Count 5.46 X10*6/uL (4.20-5.50); Red Cell Distribution Width 12.5 % (11.0-16.0); White Blood Count 7.7 X10*3/uL (4.8-10.8)
[2025-02-24 14:41] LABS: Erythrocyte Sedimentation Rate 2 MM/HR (0-20)
--- OUTSIDE RECORDS SUMMARY | 2025-02-24 16:07 | XMS_ITS | Patient Health Record ---
Author Organization Valerio Khanna MD Address [address] [place], [place] [id number] Care Team Providers Care Etiologist Name Role Phone Clemencia Valerio Primary Care Provider [phone] Allergies No Known Allergies Results Component Value Reference Range Notes Glucose Fasting Reviewed date:06/19/2024 12:26:39 PM Interpretation: Performing Lab:[facility], [address] [place] [phone] Notes/Report: Glucose Fasting 102 60-99 mg/dL A fasting glucose from 100-125 mg/dl is considered impaired (pre-diabetes). Hemoglobin A1c Reviewed date:06/19/2024 12:26:01 PM Interpretation: Performing Lab:[facility], [address] [place] [phone] Notes/Report: Hemoglobin A1c % 5.4 <6.0 % [...] average glucose, using the formula of the B4Y-Ixrprhr Average Glucose study (ADAG), Diabetes Care, Vol.31,#8, 2007 Thyroid Stimulating Hormone Reviewed date:07/01/2024 11:55:14 AM Interpretation: Performing Lab:[facility], [address] [place] [phone] Notes/Report: Thyroid Stimulating Hormone 3.03 0.32-4.0 uIU/mL Note: A sustained TSH level above 2.5 uIU/mL may warrant further investigation. TSH 3rd Generation ([employer]) Lay Siddiqui Reviewed date:07/01/2024 11:55:24 AM Interpretation: Performing Lab:[facility], [address] [place] [phone] Notes/Report: Lay Siddiqui See Note Specimen held untested for 24 hours; Call to request Chemistry testing. Erythrocyte Sedimentation Ra te Reviewed date:07/01/2024 12:05:33 PM Interpretation: Performing Lab:[facility], [address] [place] [phone] Notes/Report: Erythrocyte Sedimentation Rate 2 0-20 MM/HR Patients with polycythemia and many hemoglobin abnormalities may have depressed sed rates whereas patients with anemia may have elevated sed rates. Free T4 (Free Thyroxine) Reviewed date:07/01/2024 11:56:07 AM Interpretation: Performing Lab:[facility], [address] [place] [phone] Notes/Report: Free T4 (Free Thyroxine) 1.24 0.71-1.85 ng/dL Complete Blood Count Auto Di ff Reviewed date:12/16/2024 12:47:46 PM Interpretation: Performing Lab:[facility], [address] [place] [phone] Notes/Report: White Blood Count 8.9 4.8-10.8 X10*3/uL [...] t Reviewed date:12/25/2024 10:12:36 AM Interpretation:12-25-24 Performing Lab:[facility], [address] [place] [phone] Notes/Report: Urine, Clean Catch Color Urine DK YELLOW Appearance Urine Clear PH 5.5 5.0-9.0 Glucose Urine UA Negative Negative mg/dL Urine Blood Moderate (2+) Negative Specific [place] - Urine >= 1.030 1.005-1.025 Urine Protein 30 (1+) Neg-Trace mg/dL Urine Ketones Negative Negative mg/dL Nitrite Urine Negative Negative Leukocyte Esterase Urine Negative Negative RBC Urine 11-20 0-2 /HPF WBC Urine 0-5 0-5 /HPF Squamous Epithelial Cell Urine 3-5 0-2 /HPF Bacteria Urine None Seen None Seen Hyaline Casts Urine 0-2 0-2 /LPF Complete Blood Count Auto Di ff Reviewed date:12/25/2024 04:59:50 PM Interpretation: Performing Lab:[address] [phone] Notes/Report: White Blood Count 8.9 4.8-10.8 X10*3/uL [...] X10*3/uL NRBC Abs Auto 0.000 0.0-0.012 X10*3/uL Hold Gold (Not yet reviewed by provider) Interpretation: Performing Lab:[address] [phone] Notes/Report: Hold Gold See Note Specimen held untested for 24 hours; Call to request Chemistry testing. Complete Blood Count Auto Di ff (Not yet reviewed by provider) Interpretation: Performing Lab:[address] [phone] Notes/Report: White Blood Count 7.7 4.8-10.8 X10*3/uL [...] 0.000 0.0-0.012 X10*3/uL Erythrocyte Sedimentation Ra te (Not yet reviewed by provider) Interpretation: Performing Lab:[facility], [address] [place] [phone] Notes/Report: Erythrocyte Sedimentation Rate 2 0-20 MM/HR Patients with polycythemia and many hemoglobin abnormalities may have depressed sed rates whereas patients with anemia may have elevated sed rates. Reason For Referral Reason please eval and sasha t Diagnosis 1 Microscopic hematuri a (R31.29) Referral Organization Valerio Khanna MD Referring Provider First Name Valerio Referring Provider Last Name Clemencia Referring Provider Speciality Internal M edicine Referred Provider Marques Patterson Referred Provider Specialty Urology General Notes Kellie Mims 0 01/02/2025 09:41:17 AM >info faxed, Kellie Mims 01/05/2025 11:50:04 AM >in referral request sent to Prasanna Mishra Annette 01/08/2025 02:45:29 PM >referral info mailed Referral Priority Routine Referral Appointment Date 02/25/2025 Medications Medication SIG (Take, Route, Frequency, Duration) Notes Start Date End Date Status Ibuprofen 800 MG 1 tablet with food o r milk as needed Orally every 8 hrs for 30 days 02/24/2025 Active Escitalopram Oxalate 10 MG 1 tablet Oral ly Once a day for 30 days 01/23/2025 Active Levothyroxine Sodium 112 MCG TAKE 1 TABLET BY MOUTH EVERY DAY IN THE MORNING ON EMPTY STOMACH FOR 90 DAYS for 90 Active Valsartan 80 MG 1 tablet Orally [...] Multi Adult Gummies - as directed Orally Not-Taking Immunizations Vaccine Route Administration Date Status Comme nts Fluarix Quadrivalent IM Intramuscular 09/05/2019 Adminnikita richter pt was given the vaccine at a [facility] in [facility]. PPSV23 (Pnemovax) IM Intramuscular 05/24/2020 [...] Problem Status W/U Status Risk Notes Problem Anxiety (28964604) Anxiety (F41.9) Active confi rmed Problem 89713843 Polymyalgia rheumatica (M35.3) Active confirmed Problem Essential hypertension (34050090) Essential hypertension (I10) Active confirmed Problem 079840798 Acquired hypothyroidism (E03.9) Active confirmed Problem Hyperthyroidism (14971157) Hyperthyroidism (E05.90) Active confirmed Problem Labile essential hypertension (149068776) Labile hypertension (I10) Active confirmed Problem 966346460 History of pneumonia (Z87.01) Active confirmed Problem Non-toxic single thyroid nodule (887398258) Left thyroid nodule (E04.1) Active confirmed Problem Non-toxic multinodular goiter (77241463) Multinodular goiter (nontoxic) (E04.2) Active confirmed Vital Signs Blood pressure diastolic 68 mm Hg 02/24/2025 isabell ght is down 10 pounds since 01-23-25 Height 64.50 in 02/24/2025 weight is down 10 pounds since 01-23-25 Blood pressure systolic 122 mm Hg 02/24/2025 weig ht is down 10 pounds since 01-23-25 Weight 178 lbs 02/24/2025 weight is down 10 pounds since 01-23-25 BMI 30.08 kg/m2 02/24/2025 weight is down 10 pounds since 01-23-25 Encounters Encounter Location Date Provider Diagnosis Valerio Khanna MD [address] [place] [id number] 06/19/2024 Valerio Khanna Microscopic hematuri a R31.29 and Elevated blood sugar R73.9 Valerio Khanna MD [address] [place] [id number] 07/01/2024 Valerio Khanna Acquired hypothyroid ism E03.9 ; Polymyalgia rheumatica M35.3 and Hyperthyroidism E05.90 Valerio Khanna MD [address] [place] [id number] 12/16/2024 Valerio Khanna Blood tests for rout ine general physical examination Z00.00 ; Hyperthyroidism E05.90 and Labile hypertension I10 Valerio Khanna MD [address] [place], [place] [id number] 02/24/2025 Valerio Khanna Hyperthyroidism E05. 90 and Myalgia M79.10 Valerio Khanna MD [address] [place] [id number] 06/26/2024 Valerioetelvina Geronimoer Polymyalgia rheumati ca M35.3 and Acquired hypothyroidism E03.9 Valerio Khanna MD [address] [place] [id number] 07/04/2024 Valerio Clemencia Polymyalgia rheumati ca M35.3 and Hyperthyroidism E05.90 Valerio Khanna MD [address] [place] [id number] 12/25/2024 Valerio Khanna Acquired hypothyroid ism E03.9 ; Lethargy R53.83 ; Leg weakness, bilateral R29.898 ; Microscopic hematuria R31.29 and Polycythemia D75.1 [address]erio Khanna MD [address] [place] [id number] 01/23/2025 Valerio Khanna Essential hypertensi on I10 ; Anxiety F41.9 and Spinal stenosis M48.00 Valerio Khanna MD [address] [place] [id number] 02/19/2025 Valerio Khanna Essential hypertensi on I10 Assessments Encounter Date Diagnosis (ICD Code) Assessment Notes Treatment Notes Treatment Clinical Notes Section Notes 06/19/2024 Microscopic hematuria (ICD-10 - R31.29) 06/19/2024 Elevated blood sugar (ICD-10 - R73.9) 07/01/2024 Acquired hypothyroidism (ICD-10 - E03.9) 07/01/2024 Polymyalgia rheumatica (ICD-10 - M35.3) 12/16/2024 Blood tests for routine general physical examination (ICD-10 - Z00.00) 02/24/2025 Hyperthyroidism (ICD-10 - E05.90) 02/24/2025 Myalgia (ICD-10 - M79.10) 06/26/2024 Polymyalgia rheumatica (ICD-10 - M35.3) pending [...] normal at goal, will continue current regiment 12/25/2024 Acquired hypothyroidism (ICD-10 - E03.9) good tsh 12/25/2024 Lethargy (ICD-10 - R53.83) 01/23/2025 Essential hypertension (ICD-10 - I10) will start meds, patient verbalized understanding of medication and directions for use 01/23/2025 Anxiety (ICD-10 - F41.9) will try some citalopram, and will monitor 02/19/2025 Essential hypertension (ICD-10 - I10) 07/01/2024 Hyperthyroidism (ICD-10 - E05.90) 12/16/2024 Hyperthyroidism (ICD-10 - E05.90) 12/25/2024 Leg weakness, bilateral (ICD-10 - R29.898) not clear that it is pmr/ did not get much better on prednisone. no temproral artery tenderness 01/23/2025 Spinal stenosis (ICD-10 - M48.00) order faxed to [facility] , pending diagnostic testing 12/16/2024 Labile hypertension (ICD-10 - I10) 12/25/2024 Microscopic hematuria (ICD-10 - R31.29) referral to urology in [place] 12/25/2024 Polycythemia (ICD-10 - D75.1) Plan Of Treatment Pending Test Test Name Order Date Complete Blood Count Auto Diff Erythrocyte Sedimentation Rate 5 Comprehensive [place]. Panel Fast 5 Comprehensive [place]. Panel Fast 5 Lipid Panel 12/16/2024 TSH reflex Free T4 02/24/2025 TSH reflex Free T4 12/16/2024 Hold Gold 02/24/2025 CT lumbar spine wo con 01/23/2025 US thyroid 12/01/2021 Next Appt Details Provider Name:Valerio cassidy, 03/17/2025 10:15:00 AM, [address], [address], [place], [place], [phone], Provider Name:Valerio Reno Danika ier, 12/22/2025 07:15:00 AM, [address], [address], [place], [place], [phone], Provider Name:Valerio Reno Danika ier, 12/28/2025 10:30:00 AM, [address], [address], [place], [place], [phone], Insurance Providers Payer Name Payer Address Payer Phone Subscriber Number Group Number Insured Name Patient Relationship to Insured Coverage Start Date Coverage End Date [facility] [address] NATALIIA Brooks [phone] [id number] Susan Stratton Self - patient is the insured Medical (General) History Medical History History ICD Code refuses mammogram cologard 2019 negative refused cologard and colonoscopy refused 2024 hematuria refuses evaluation 2023
--- OUTSIDE RECORDS SUMMARY | 2025-02-24 16:07 | XMS_ITS ---
Author Organization Valerio Khanna MD Address [address] [place] [phone] Care Team Providers Care Bead Filler Name Role Phone Clemencia Valerio Primary Care Provider [phone] REASON FOR VISIT refill Medications Medication SIG (Take, Route, Fr equency, Duration) Notes Start Date End Date Status Valsartan 80 MG 1 tablet Orally Once a day for 30 days 01/23/2025 Active Encounters Encounter Location Date Provider Diagnosis Valerio Khanna MD [address] [place] [id number] 02/19/2025 Valerio Khanna Essential hypertension I10 Assessments Encounter Date Diagnosis (ICD Code) Assessment Notes Treatment Notes Treatment Clinical Notes Section Notes 02/19/2025 Essential hypertension (ICD-10 - I10) Plan Of Treatment Medication Medication Name Sig Start Date Stop Date Notes Valsartan 80 MG 1 tablet Orally Once a day for 30 days Next Appt Details Provider Name:Valerio cassidy, 03/17/2025 10:15:00 AM, [address] [place] [address], [address], [id number], Provider Name:Valerio cassidy, 12/22/2025 07:15:00 AM, [address] [place] [address], [address], [phone], Provider Name:Valerio cassidy, 12/28/2025 10:30:00 AM, [address] [place] [address], [address], [phone], Progress Notes * Divya STRATTONOB:1955 (70 yo F)Acc No.[id number]:02/19/2025 Patient:?Tg STRATTON :1955???Age:70 Y???Sex:Female Address:[address] [place] [address] [place], [address] * Refills? Refill Valsartan Tablet, 80 MG, Orally, 30, 1 tablet, Once a day, 30 days, Refills=11 * true * Date:? Generated for Gianni mendez/Kimberly/eTransmitting on:?02/24/2025 04:07 PM EDT
--- OUTSIDE RECORDS SUMMARY | 2025-02-24 16:08 | XMS_ITS ---
Author Organization Valerio Khanna MD Address [address] [place], [place] [id number] Care Team Providers Care Form Grader Operator Name Role Phone Valerio Khanna Primary Care Provider [phone] Allergies No Known Allergies REASON FOR VISIT [...] W/U Status Risk Notes Problem Essential hypertension (08640112) Essential hypertension (I10) Active confirmed Problem Anxiety (85418600) Anxiety (F41.9) Active confirmed Vital Signs Blood pressure systolic 150 mm Hg 01/24/20 25 Blood pressure diastolic 84 mm Hg 025 Height 64.50 in 01/23/2025 Weight 188 lbs 01/23/2025 BMI 31.77 kg/m2 01/23/2025 weight is up 6 pounds since 12-25-24 Encounters Encounter Location Date Provider Diagnosis Valerio Khanna MD [address] [place] [address] [place] [phone] 01/23/2025 Valerio Khanna Essential hypertension I10 ; [...] Up: 4 Weeks, Reason: Provider Name:Valerio cassidy, 03/17/2025 10:15:00 AM, [address] [place] [address], [address], [phone], Provider Name:Valerio cassidy, 12/22/2025 07:15:00 AM, [address] [place] [address], [address], [phone], Provider Name:Valerio cassidy, 12/28/2025 10:30:00 AM, [address] [place] [address], [address], [phone], Progress Notes * Divya STRATTONOB:1955 (69 yo F)Acc No.[id number]:01/23/2025 Progress Notes Patient:?Tg STRATTON Provider:?Valerio Khanna MD :1955???Age:69 Y???Sex:Female D ate:01/23/2025 Address:[address] [place] [address] [id number] Subjective: * Chief Complaints: * ???4 weeks * HPI: ???Symptom(s):?patint is a 69 yo female here for 4 week follow up visit. * ROS:?General/Constitutional:?Denies?Chills.?Denies?Fatigue.?Denies?Fever.?Denies?Headache.?ENT:?Denies?Sore throat.?Endocrine:?Denies?Cold intolerance.?Admits?Difficulty sleeping.?Denies?Dizziness.?Denies?Excessive sweating.?Denies?Excessive thirst.?Denies?Frequent urination.?Respiratory:?Denies?Cough.?Denies?Shortness of breath at rest.?Denies?Shortness of breath with exertion.?Gastrointestinal:?Denies?Diarrhea.?Denies?Nausea.?Musculoskeletal:?Patient complaining of?both legs are week and at times tingling all the way down.? * Medical History:? * Surgical History:? * [...] Allergies:?N.K.D.A.yes[Aller gies Verified] Objective: * Vitals:?Ht: 64.50, Wt: 188, BMI:31.77, BP:150/84, Repeat BP:150/92, Wt-k.28. weight is up 6 pounds since 12-25-24. * Examination: ???General Examination: ?GENERAL APPEARANCE:?alert, well hydrated, in no distress.?SKIN:?good turgor.?HEART:?regular rate and rhythm, no murmurs, rubs, gallops.?LUNGS:?no wheezes, rales, rhonchi, good air movement, clear to auscultation bilaterally.? Assessment: * Assessment: 1.?Essential hypertension - I10 (Primary)???2.?Anxiety - F41.9???3.?Spinal stenosis - M48.00??? Plan: * Treatment: 2.?Anxiety? Start Escitalopram Oxalate Tablet, 10 MG, 1 tablet, Orally, Once a day, 30 days, 30, Refills 3.?? Notes: will try some citalopram, and will monitor?? 3.?Spinal stenosis?Imaging: CT lumbar spine wo con Notes: order faxed to [facility] , pending diagnostic testing?? * Procedure Codes:? * Follow Up:?4 Weeks * * Sign off status: Completed true * Provider:?Valerio Khanna MD Date:?0 01/23/2025 Generated for Gianni mendez/Kimberly/eTransmitting on:?02/24/2025 04:07 PM EDT History and Physical Notes * HPI (History of Present Illness) Category Sub-Category Detail Notes Category Not es Symptom(s) patint is a 69 yo female here for [...]
--- OUTSIDE RECORDS SUMMARY | 2025-02-24 16:08 | XMS_ITS ---
Author Organization Valerio Khanna MD Address [address] [place], [place] [id number] Care Team Providers Care Communicable Disease Specialist Name Role Phone Clemencia Valerio Primary Care Provider Allergies No Known Allergies Results Component Value Reference Range Notes Complete Blood Count Auto Di ff (Not yet reviewed by provider) Interpretation: Performing Lab:[facility], [address] [place] [phone] Notes/Report: White Blood Count 7.7 4.8-10.8 X10*3/uL [...] (Not yet reviewed by provider) Interpretation: Performing Lab:[facility], [address] [place] [phone] Notes/Report: Erythrocyte Sedimentation Rate 2 0-20 MM/HR Patients with polycythemia and many hemoglobin abnormalities may have depressed sed rates whereas patients with anemia may have elevated sed rates. REASON FOR VISIT 4 week Medications Medication [...] kg/m2 02/24/2025 weight is down 10 pounds sin ce 01-23-25 Encounters Encounter Location Date Provider Diagnosis Valerio Khanna MD [address] [place] [address] [place] [phone] 02/24/2025 Valerio Khanna Hyperthyroidism E05. 90 and Myalgia M79.10 Assessments Encounter Date Diagnosis (ICD Code) Assessment Notes Treatment Notes Treatment Clinical Notes Section Notes 02/24/2025 Hyperthyroidism (ICD-10 - E05.90) 02/24/2025 Myalgia (ICD-10 - M79.10) Plan Of Treatment Medication Medication Name Sig Start Date Stop Date Notes Ibuprofen 800 MG 1 tablet with food o r milk as needed Orally every 8 hrs for 30 days 02/24/2025 Pending Test Test Name Order Date Complete Blood Count Auto Diff 5 Erythrocyte Sedimentation Rate 5 Comprehensive [place]. Panel Fast 5 TSH reflex Free T4 02/24/2025 Next Appt Details Follow Up: 3 Weeks, Reason: Provider Name:Valerio cassidy, 03/17/2025 10:15:00 AM, [address] [place] [address], [address], [phone], Provider Name:Valerio cassidy, 12/22/2025 07:15:00 AM, [address] [place] [address], [address], [phone], Provider Name:Valerio cassidy, 12/28/2025 10:30:00 AM, [address] [place] [address], [address], [phone], Progress Notes * Divya STRATTONOB:1955 (70 yo F)Acc No.[id number]:02/24/2025 Progress Notes Patient:?Tg STRATTON Provider:?Valerio Khanna MD :1955???Age:70 Y???Sex:Female D ate:02/24/2025 Address:[address] [place], [place] [id number] Subjective: * Chief Complaints: * ???1. 4 week. * HPI: ???Symptom(s):?patient is? 70 yo female here for 4 week follow up visit/ pain is increasing in lower legs. back of legs feel stretched/ pain alos in upper arms and lower back pain. gets severe pain in getting out of chair or out suv. * ROS:?General/Constitutional:?Denies?Chills.?Denies?Fatigue.?Denies?Fever.?Denies?Headache.?ENT:?Denies?Sore throat.?Respiratory:?Denies?Cough.?Denies?Shortness of breath at rest.?Denies?Shortness of breath with exertion.?Cardiovascular:?Denies?Chest pain at rest.?Denies?Chest pain with exertion.?Admits?Dizziness.?Denies?Palpitations.?Denies?Shortness of breath.?Gastrointestinal:?Denies?Diarrhea.?Denies?Nausea.? * Medical History:?Refuses liv mogram, Cologard 2019 negative refused cologard and colonoscopy refused 2024, Hematuria refuses evaluation 2023. * Medications:?Taking Escitalo pram Oxalate 10 MG Tablet 1 tablet Orally Once a day , Taking Levothyroxine Sodium 112 MCG Tablet TAKE 1 TABLET BY MOUTH EVERY DAY IN THE MORNING ON EMPTY STOMACH FOR 90 DAYS , Taking Valsartan 80 MG Tablet 1 tablet Orally Once a day , Not-Taking/PRN predniSONE 10 MG Tablet 1 [...] * Allergies:?N.K.D.A. Objective: * Vitals:?Ht: 64.50, Wt: 178, BMI:30.08, BP:122/68, Wt-k.74. weight is down 10 pounds since 01-23-25. * Examination: ???General Examination: ?GENERAL APPEARANCE:?alert, well hydrated, in no distress.?HEAD:?normocephalic.?SKIN:?good turgor.?HEART:?no murmurs, rubs, gallops, regular rate and rhythm.?LUNGS:?no wheezes, rales, rhonchi, good air movement, clear to auscultation bilaterally.?MUSCULOSKELETAL:?non tender to palpation.? Assessment: * Assessment: 1.?Hyperthyroidism - E05.90 (Primary)???2.?Myalgia - M79.10??? Plan: * Treatment: 2.?Myalgia? Start Ibuprofen Tablet, 800 MG, 1 tablet with food or milk as needed, Orally, every 8 hrs, 30 days, 90 Tablet, Refills 1.?? * Procedure Codes:?27583 VENIP UNCT, ROUTINE* * Follow Up:?3 Weeks * * The named appointment provid er may or may not be the originator of this progress note, and it is not deemed complete until electronically signed by the appointment provider. Sign off status: Pending * Provider:?Valerio Khanna MD Date:?0 02/24/2025 Generated for Gianni mendez/Kimberly/Chavaitting on:?02/24/2025 04:07 PM EDT History and Physical [...]
[2025-02-24 20:01] LABS: Alanine Aminotransferase 40 U/L (0-31); Albumin Level 4.3 g/dL (3.5-5.0); Anion Gap 13 (12-20); Aspartate Amino Transferase 26 U/L (5-31); Bilirubin Total 0.5 mg/dL (0.0-1.0); Blood Urea Nitrogen 20 mg/dL (9-16); Calcium 9.3 mg/dL (8.4-10.2); Carbon Dioxide 22 mmol/L (22-29); Chloride 110 mmol/L (96-108); Estimated Glomerular Filt Rate > 60; Glucose Fasting 81 mg/dL (60-99); Potassium 4.1 mmol/L (3.3-5.1); Sodium 141 mmol/L (135-145)
[2025-02-24 20:16] LABS: Alkaline Phosphatase 62 U/L (39-117); TSH reflex Free T4 1.95 uIU/mL (0.32-4.0)
== END 2025-02-24 13:37 | disposition home or self-care (01) ==
LOC: HO.LNP 13:36
PROVIDERS: Visit Provider Internal Medicine
DX: E05.90 Thyrotoxicosis, unspecified without thyrotoxic crisis or storm (principal)
CPT/HCPCS: 80053; 84443; 85025; 85652

== ENCOUNTER 2025-02-25 13:47 | Outpatient (REF) | payer MEDICARE, SELFPAY ==
[2025-02-25 16:49] LABS: Urine Cytology See Pathology rpt
== END 2025-02-25 13:48 | disposition home or self-care (01) ==
LOC: HO.LNP 13:47
PROVIDERS: PCP Internal Medicine; Visit Provider Nurse Practitioner Family
DX: R31.29 Other microscopic hematuria (principal); Z87.891 Personal history of nicotine dependence
CPT/HCPCS: 81003; 88112; 99202

== ENCOUNTER 2025-02-25 13:47 | Outpatient (AMB) | payer MEDICARE, SELFPAY ==
--- NOTE | 2025-02-25 13:50 | MHC.OFFVIS ---
Intake Visit Reasons: Microscopic hematuria Intake Note: New patient presents today for initial visit for microscopic hematuria Urology Medication:none Blood Thinner:none Antibiotic Allergies:none Allergies No Known Allergies Allergy (Verified 02/25/25 14:55) Medication List - Last Reconciled 02/25/25 by JD Pérez- levothyroxine 0.012 mcg PO DAILY HPI Comments Details: Cem is a very pleasant 70-year-old female patient of Dr. Khanna. She has a past medical history of goiter, hypertension, and vitamin-D deficiency. She presents to the office today as a new patient for microscopic hematuria in the setting of previous nicotine dependence. In discussion with the patient today she reports having recently establish primary care as she had not followed up with PCP for many years due to significant adverse interaction with the healthcare system as a younger individual. She reports being told she had microscopic blood in her urine in recommendations were made for urology referral for further assessment evaluation. In office urinalysis results reviewed with the patient today 2+ microscopic hematuria otherwise within normal limits. She does report a previous smoking history since the age of [age] years old however quit over 40 years ago. She reports when she was smoking she would smoke at least 1 pack per day. When asked she currently denies any bothersome urinary issues. She denies urinary urgency, urinary frequency, incontinence, nocturia, gross/visible hematuria, dysuria, foul smelling urine, changes to urinary stream, flank pain, fever, and or chills. She is happy with her current voiding parameters. We discussed at length potential causes of microscopic hematuria as well as further workup to include imaging as well as cystoscopy. I discussed reasons for blood in the urine may include but are not limited to kidney stones, cancer in the urinary tract, kidney stone disease or inflammatory conditions of the urinary tract. I have discussed workup to include cystoscopy evaluation. She does discuss her reluctancy in following up with healthcare providers. She will think about having cystoscopy performed however will move forward with imaging at this time. All questions were answered. She otherwise offers no other issues or concerns at this time. Discussion Notes During this visit, we discussed Tg's microscopic hematuria, her previous smoking history, and the increased risk of bladder cancer associated with smoking. I recommended a CT scan to visualize any anomalies and to further investigate the bladder. We reviewed the nature of the cystoscopy, including its brief duration and the pressure sensation experienced during the procedure. We also discussed obtaining cystoscopy under sedation if needed given patient's previous past medical history. Tg expressed fear due to past punitive medical experiences, but was informed that she has complete autonomy over her choices regarding the suggested tests. I reassured her and emphasized that decisions could be made post results, highlighting the option to refuse any procedure and the importance of her comfort with the process. PFSH Medical History Toxic multinodular goiter Vitamin D deficiency Multinodular thyroid Hyperthyroidism Surgical History Hx of total thyroidectomy History of foot surgery Hx of cataract surgery Family History Father Diabetes mellitus Mother HTN (hypertension) Social History Alcohol intake: current Alcohol intake frequency: holidays/special occasions only Patient Tobacco Use Status: Former Tobacco user Cigarette Packs Per Day: 2 Years Smoked: 15 Review of Systems Const All systems reviewed & are unremarkable except as noted in HPI and below Physical Exam Const General: cooperative, healthy appearing, comfortable, no acute distress, well developed, alert and awake Orientation/consciousness: patient oriented x3 Limitations: no limitations HEENT Head: Yes normal to inspection, Yes normocephalic and Yes atraumatic Ears: hearing grossly normal bilaterally Eyes General: appearance normal, both eyes and all related structures Neck Neck: Yes normal visual inspection and Yes trachea midline Chest Chest palpation & inspection: normal inspection of the chest Resp Effort & Inspection: normal respiratory effort and able to speak in complete sentences Cardio Rate: regular rate GI Inspection: Yes normal to inspection General: Yes no CVA tenderness Back/Spine/Pelvis Back: no CVA tenderness Skin General skin exam: no rashes or lesions noted Neuro General: patient oriented x3 Extrem General: Yes normal to inspection Psych Appearance: grossly normal and well kempt Mental Status: mental status grossly normal Speech and movement: Normal speech and movement present and Clear speech present Affect: normal affect Attitude: cooperative Thought process: Normal thought process present Thought content: Normal thought content present Insight: Fair insight present (Psych) Judgement: Fair judgement present (Psych) Assessment & Plan Assessment & Plan (1) Microscopic hematuria: Code(s): R31.29 - Other microscopic hematuria Category: Medical (2) History of nicotine dependence: Code(s): Z87.891 - Personal history of nicotine dependence Category: Medical Plan In office urinalysis results reviewed with the patient today; as noted above; will send for urine cytology. We discussed at length potential causes of microscopic hematuria as well as further treatment options and risks and benefits of these treatment options. She currently denies any bothersome urinary issues or concerns. She reports be happy with current voiding parameters. Will obtain CT urogram for further assessment evaluation. BUN and creatinine ordered for imaging. Follow-up in 1-3 months with imaging and labs to be completed prior; or sooner with any issues, concerns, and or questions. Orders: Orders Creatinine Today R31.29 - Other microscopic hematuria, Z87.891 - Personal history of nicotine dependence Blood Urea Nitrogen Today R31.29 - Other microscopic hematuria, Z87.891 - Personal history of nicotine dependence CT urogram Today R31.29 - Other microscopic hematuria, Z87.891 - Personal history of nicotine dependence Patient Instructions: The patient had an opportunity to ask questions regarding the treatment plan. All questions were answered. Physical exam, labs, and imaging were discussed and reviewed in detail. As well as risks, benefits, and discussion of treatment choices. No major barriers to understanding were identified. The patient expressed understanding and agreement with the above treatment plan. The patient was made aware they should contact our office by phone for worsening of their current condition, the appearance of new symptoms, or with any questions or concerns. Compliance is encouraged with any medications and follow up testing that is ordered. It is a privilege to be allowed the opportunity to participate in? your urological care.? Again, if you have any questions or concerns If you have any questions or concerns please do not hesitate to contact me. The office is [phone]. This note is constructed using voice recognition software. While every effort has been made to ensure accuracy sewer and cutter finger buff material errors may have been included. Yours sincerely, JD Pérez-STEVE Coding Level of Care Code New Pt Level 3 (59824) Diagnoses Microscopic hematuria R31.29 History of nicotine dependence Z87.891
--- OUTSIDE RECORDS SUMMARY | 2025-02-25 16:28 | XMS_ITS ---
Author Organization Valerio Khanna MD Address [address] [place] [phone] Care Team Providers Care Mobile Qa Tester Name Role Phone Clemencia Valerio Primary Care Provider REASON FOR VISIT refill Medications Medication SIG (Take, Route, Fr equency, Duration) Notes Start Date End Date Status Valsartan 80 MG 1 tablet Orally Once a day for 30 days 01/23/2025 Active Encounters Encounter Location Date Provider Diagnosis Valerio Khanna MD [address] [place] [phone] 02/19/2025 Valerio Khanna Essential hypertension I10 Assessments Encounter Date Diagnosis (ICD Code) Assessment Notes Treatment Notes Treatment Clinical Notes Section Notes 02/19/2025 Essential hypertension (ICD-10 - I10) Plan Of Treatment Medication Medication Name Sig Start Date Stop Date Notes Valsartan 80 MG 1 tablet Orally Once a day for 30 days Next Appt Details Provider Name:Valerio cassidy, 03/17/2025 10:15:00 AM, [address] [place] [address], [address], [phone], Provider Name:Valerio cassidy, 12/22/2025 07:15:00 AM, [address] [place] [address], [address], [phone], Provider Name:Valerio cassidy, 12/28/2025 10:30:00 AM, [address] [place] [address], [address], [phone], Progress Notes * Divya STRATTONOB:1955 (70 yo F)Acc No.[id number]:02/19/2025 Patient:?Tg STRATTON :1955???Age:70 Y???Sex:Female Address:[address] [place] [address] [place], [id number] * Refills? Refill Valsartan Tablet, 80 MG, Orally, 30, 1 tablet, Once a day, 30 days, Refills=11 * true * Date:? Generated for Gianni mendez/Kimberly/eTransmitting on:?02/25/2025 04:28 PM EDT
--- OUTSIDE RECORDS SUMMARY | 2025-02-25 16:28 | XMS_ITS | Patient Health Record ---
Author Organization Valerio Khanna MD Address [address] [place], [place] [phone] Care Team Providers Care Metal Gauge Maker Name Role Phone Clemencia Valerio Primary Care Provider Allergies No Known Allergies Results Component Value Reference Range Notes Glucose Fasting Reviewed date:06/19/2024 12:26:39 PM Interpretation: Performing Lab:[facility], [address] [place] [phone] Notes/Report: Glucose Fasting 102 60-99 mg/dL A fasting glucose from 100-125 mg/dl is considered impaired (pre-diabetes). Hemoglobin A1c Reviewed date:06/19/2024 12:26:01 PM Interpretation: Performing Lab:[facility], [address] [place] [phone] Notes/Report: Hemoglobin A1c % 5.4 <6.0 % [...] average glucose, using the formula of the [id number] Average Glucose study (ADAG), Diabetes Care, Vol.31,#8, 2007 Thyroid Stimulating Hormone Reviewed date:07/01/2024 11:55:14 AM Interpretation: Performing Lab:[facility], [address] [place] [phone] Notes/Report: Thyroid Stimulating Hormone 3.03 0.32-4.0 uIU/ mL Note: A sustained TSH level above 2.5 uIU/mL may warrant further investigation. TSH 3rd Generation ([facility]) Lay Siddiqui Reviewed date:07/01/2024 11:55:24 AM Interpretation: Performing Lab:[facility], [address] [place] [phone] Notes/Report: Lay Siddiqui See Note Specimen held untested for 24 hours; Call to request Chemistry testing. Erythrocyte Sedimentation Ra te Reviewed date:07/01/2024 12:05:33 PM Interpretation: Performing Lab:[facility], [address] [place] [phone] Notes/Report: Erythrocyte Sedimentation Rate 2 0-20 MM/HR Patients with polycythemia and many hemoglobin abnormalities may have depressed sed rates whereas patients with anemia may have elevated sed rates. Free T4 (Free Thyroxine) Reviewed date:07/01/2024 11:56:07 AM Interpretation: Performing Lab:[facility], [address] [place] [phone] Notes/Report: Free T4 (Free Thyroxine) 1.24 0.71-1.85 ng/dL Complete Blood Count Auto Di ff Reviewed date:12/16/2024 12:47:46 PM Interpretation: Performing Lab:[facility], [address] [place] [phone] Notes/Report: White Blood Count 8.9 4.8-10.8 X10*3/uL [...] t Reviewed date:12/25/2024 10:12:36 AM Interpretation:12-25-24 Performing Lab:[facility], [address] [place] [phone] Notes/Report: Urine, Clean Catch Color Urine DK YELLOW Appearance Urine Clear PH 5.5 5.0-9.0 Glucose Urine UA Negative Negative mg/dL Urine Blood Moderate (2+) Negative Specific [place] - Urine >= 1.030 1.005-1.025 Urine Protein [...] ff Reviewed date:12/25/2024 04:59:50 PM Interpretation: Performing Lab:[address] [phone] Notes/Report: White Blood Count 8.9 4.8-10.8 X10*3/uL [...] NRBC Abs Auto 0.000 0.0-0.012 X10*3/uL Hold Artur Reviewed date:02/24/2025 06:25:17 PM Interpretation: Performing Lab:[facility], [address] [place] [phone] Notes/Report: Lay Siddiqui See Note Specimen held untested for 24 hours; Call to request Chemistry testing. Complete Blood Count Auto Di ff Reviewed date:02/24/2025 06:32:02 PM Interpretation: Performing Lab:[address] [phone] Notes/Report: White Blood Count 7.7 4.8-10.8 X10*3/uL [...] te Reviewed date:02/24/2025 06:31:37 PM Interpretation: Performing Lab:[facility], [address] [place] [phone] Notes/Report: Erythrocyte Sedimentation Rate 2 0-20 MM/HR Patients with polycythemia and many hemoglobin abnormalities may have depressed sed rates whereas patients with anemia may have elevated sed rates. Comprehensive [place]. Panel Fa st Reviewed date:02/25/2025 12:32:54 PM Interpretation: Performing Lab:[facility], [address] [place] [phone] Notes/Report: Sodium 141 135-145 mmol/L Potassium 4.1 [...] T4 Reviewed date:02/25/2025 12:33:04 PM Interpretation: Performing Lab:[facility], [address] [place] [phone] Notes/Report: TSH reflex Free T4 1.95 0.32-4.0 uIU/mL Reason For Referral Reason please mayank rebolledo Diagnosis 1 Microscopic hematuri a (R31.29) Referral Organization Valerio Khanna MD Referring Provider First Name Valerio Referring Provider Last Name Clemencia Referring Provider Speciality Internal M edicine Referred Provider Marques Patterson Referred Provider Specialty Urology General Notes Kellie Mims 0 01/02/2025 09:41:17 AM >info faxedPrasanna Annette 01/05/2025 11:50:04 AM >in referral request sent [...] was given the vaccine at a [facility] in [facility]. PPSV23 (Pnemovax) IM Intramuscular 05/24/2020 Administered [...] Status W/U Status Risk Notes Problem Anxiety (99186759) Anxiety (F41.9) Active confi rmed Problem 94702498 Polymyalgia rheumatica (M35.3) Active confirmed Problem Essential hypertension (24056343) Essential hypertension (I10) Active confirmed Problem 593251052 Acquired hypothyroidism (E03.9) Active confirmed Problem Hyperthyroidism (54198116) Hyperthyroidism (E05.90) Active confirmed Problem Labile essential hypertension (211316042) Labile hypertension (I10) Active confirmed Problem 439870813 History of pneumonia (Z87.01) Active confirmed Problem Non-toxic single thyroid nodule (502564130) Left thyroid nodule (E04.1) Active confirmed Problem Non-toxic multinodular goiter (61546233) Multinodular goiter (nontoxic) (E04.2) Active confirmed Vital [...] Valerio Khanna MD [address] [place] [id number] 06/19/2024 Valerio Khanna Microscopic hematuri a R31.29 and Elevated blood sugar R73.9 Valerio Khanna MD [address] [place] [id number] 07/01/2024 Valerio Khanna Acquired hypothyroid ism E03.9 ; Polymyalgia rheumatica M35.3 and Hyperthyroidism E05.90 Valerio Khanna MD [address] [place] [id number] 12/16/2024 Valerio Khanna Blood tests for rout ine general physical examination Z00.00 ; Hyperthyroidism E05.90 and Labile hypertension I10 Valerio Khanna MD [address] [place] [id number] 02/24/2025 Valerio Khanna Hyperthyroidism E05. 90 and Myalgia M79.10 Valerio Khanna MD [address] [place] [id number] 06/26/2024 Valerio Khanna Polymyalgia rheumati ca M35.3 and Acquired hypothyroidism E03.9 Valerio Khanna MD [address] [place] [id number] 07/04/2024 Valerio Khanna Polymyalgia rheumati ca M35.3 and Hyperthyroidism E05.90 Valerio Khanna MD [address] [place] [id number] 12/25/2024 Valerio Geronimocaity Acquired hypothyroid ism E03.9 ; Lethargy R53.83 ; Leg weakness, bilateral R29.898 ; Microscopic hematuria R31.29 and Polycythemia D75.1 Valerio Khanna MD [address] [place] [address] Drive [address] [place], [place] [id number] 01/23/2025 Vaelrio Khanna Essential hypertensi on I10 ; Anxiety F41.9 and Spinal stenosis M48.00 Valerio Khanna MD [address] [place] [address] Drive [address] [place] [id number] 02/19/2025 Valerio Geronimocaity Essential hypertensi on I10 Assessments Encounter Date [...] stenosis (ICD-10 - M48.00) order faxed to Michelle , pending diagnostic testing 12/16/2024 Labile hypertension (ICD-10 - I10) 12/25/2024 Microscopic hematuria (ICD-10 - R31.29) referral to urology in [place] 12/25/2024 Polycythemia (ICD-10 - D75.1) Plan Of Treatment Pending Test Test Name Order Date Comprehensive [place]. Panel Fast Lipid Panel 12/16/2024 TSH reflex Free T4 12/16/2024 CT lumbar spine wo con 01/23/2025 US thyroid 12/01/2021 Next Appt Details Provider Name:Valerio cassidy, 03/17/2025 10:15:00 AM, [address] [place] [address], [address], [phone], Provider Name:Valerio cassidy, 12/22/2025 07:15:00 AM, [address] [place] [address], [address] [facility], [place], [place], [phone], Provider Name:Valerio moellerr, 12/28/2025 10:30:00 AM, [address] [place] [address], [place] [address], [place], [place], [phone], Insurance Providers Payer Name Payer Address Payer Phone Subscriber Number Group Number Insured Name Patient Relationship to Insured Coverage Start Date Coverage End Date [facility] [address] NATALIIA Brooks [phone] [id number] Viral, Susan Self - patient is the insured Medical (General) History Medical History History ICD Code refuses mammogram cologard 2019 negative refused cologard and colonoscopy refused 2024 hematuria refuses evaluation 2023
--- OUTSIDE RECORDS SUMMARY | 2025-02-25 16:29 | XMS_ITS ---
Author Organization Valerio Khanna MD Address [address] [place], [place] [phone] Care Team Providers Care Whizzer Operator Name Role Phone Clemencia Valerio Primary Care Provider [phone] Allergies No Known Allergies Results Component Value Reference Range Notes Complete Blood Count Auto Di ff Reviewed date:02/24/2025 06:32:02 PM Interpretation: Performing Lab:[facility], [address] [place] [phone] Notes/Report: White Blood Count 7.7 4.8-10.8 X10*3/uL [...] te Reviewed date:02/24/2025 06:31:37 PM Interpretation: Performing Lab:[facility], [address] [place] [phone] Notes/Report: Erythrocyte Sedimentation Rate 2 0-20 MM/HR Patients with polycythemia and many hemoglobin abnormalities may have depressed sed rates whereas patients with anemia may have elevated sed rates. Comprehensive [place]. Panel Fa st Reviewed date:02/25/2025 12:32:54 PM Interpretation: Performing Lab:[facility], [address] [place] [phone] Notes/Report: Sodium 141 135-145 mmol/L Potassium 4.1 [...] T4 Reviewed date:02/25/2025 12:33:04 PM Interpretation: Performing Lab:[facility], [address] [place] [address], [place] [address] Notes/Report: TSH reflex Free T4 1.95 0.32-4.0 [...] kg/m2 02/24/2025 weight is down 10 pounds [facility] 01-23-25 Encounters Encounter Location Date Provider Diagnosis Valerio Khanan MD [address] [place], [place] [id number] 02/24/2025 Valerio Khanna Hyperthyroidism E05. 90 and [...] every 8 hrs for 30 days 02/24/2025 Next Appt Details Follow Up: 3 Weeks, Reason: Provider Name:Valerio cassidy, 03/17/2025 10:15:00 AM, [address], [place], [place], [phone], Provider Name:Valerio Garnica khanh, 12/22/2025 07:15:00 AM, [address], [address], [place], [phone], Provider Name:Valerio Garnica khanh, 12/28/2025 10:30:00 AM, [address], [address], [place], [phone], Progress Notes * Divya STRATTONOB:1955 (70 yo F)Acc No.[id number]:02/24/2025 Progress Notes Patient:?Tg STRATTON Provider:?Valerio Khanna MD :1955???Age:70 Y???Sex:Female D ate:02/24/2025 Address:[address] [place], [place] [phone] Subjective: * Chief Complaints: * ???1. 4 [...] days, 90 Tablet, Refills 1.?? * Procedure Codes:?44068 VENIP UNCT, ROUTINE* * Follow Up:?3 Weeks * * The named appointment provid er may or may not be the originator of this progress note, and it is not deemed complete until electronically signed by the appointment provider. Sign off status: Pending * Provider:?Valerio Khanna MD Date:?0 02/24/2025 Generated for Gianni mendez/Kimberly/eTransmitting on:?02/25/2025 04:28 PM EDT History and Physical Notes * [...]
--- OUTSIDE RECORDS SUMMARY | 2025-02-25 16:29 | XMS_ITS ---
Author Organization Valerio Khanna MD Address [address] [place], [place] [phone] Care Team Providers Care Real Estate Administrator Name Role Phone Valerio Khanna Primary Care Provider Allergies No Known Allergies [...] W/U Status Risk Notes Problem Essential hypertension (18202305) Essential hypertension (I10) Active confirmed Problem Anxiety (84176996) Anxiety (F41.9) Active confirmed Vital Signs Blood pressure systolic 150 mm Hg 01/24/20 25 Blood pressure diastolic 84 mm Hg 025 Height 64.50 in 01/23/2025 Weight 188 lbs 01/23/2025 BMI 31.77 kg/m2 01/23/2025 weight is up 6 pounds since 12-25-24 Encounters Encounter Location Date Provider Diagnosis Valerio Khanna MD [address] [place] [address] [place] [id number] 01/23/2025 Valerio Khanna Essential hypertension I10 ; [...] Reason: Provider Name:Valerio cassidy, 03/17/2025 10:15:00 AM, [address] [place] [address], [address], [phone], Provider Name:Valerio cassidy, 12/22/2025 07:15:00 AM, [address] [place] [address], [address], [phone], Provider Name:Valerio cassidy, 12/28/2025 10:30:00 AM, [address] [place] [address], [address], [phone], Progress Notes * Divya STRATTONOB:1955 (69 yo F)Acc No.[id number]:01/23/2025 Progress Notes Patient:?Tg STRATTON Provider:?Valerio Khanna MD :1955???Age:69 Y???Sex:Female D ate:01/23/2025 Address:[address] [place] [address] [id number] Subjective: * Chief Complaints: * ???4 weeks [...] spine wo con Notes: order faxed to [facility] , pending diagnostic testing?? * Procedure Codes:? * Follow Up:?4 Weeks * * Sign off status: Completed true * Provider:?Valerio Khanna MD Date:?0 01/23/2025 Generated for Gianni mendez/Kimberly/eTransmitting on:?02/25/2025 04:28 PM [...]
== END 2025-02-25 14:32 | disposition home or self-care (01) ==
LOC: HO.HUSH 13:48
PROVIDERS: PCP Internal Medicine; Visit Provider Nurse Practitioner Family
DX: R31.29 Other microscopic hematuria (principal); Z87.891 Personal history of nicotine dependence; Z13.9 Encounter for screening, unspecified
CPT/HCPCS: 99203

== ENCOUNTER 2025-04-02 11:09 | Outpatient (REF) | payer MEDICARE, SELFPAY ==
--- OUTSIDE RECORDS SUMMARY | 2025-04-02 11:36 | XMS_ITS ---
Author Organization Valerio Khanna MD Address [address] [place] [address] [place] [phone] Care Team Providers Care Tying Machine Operator Lumber Name Role Phone Clemencia Valerio Primary Care Provider REASON FOR VISIT ? repeat urine apt Encounters Encounter Location Date Provider Diagnosis Valerio Khanna MD [address] [place] [address] [place] [phone] 03/02/2025 Valerio Khanna Plan Of Treatment Next Appt Details Provider Name:Valerio Garnica ier, 06/22/2025 10:00:00 AM, [address] [place] [address], [address], [phone], Provider Name:Valerio Garciazulma ier, 12/22/2025 07:15:00 AM, [address] [place] [address], [address], [phone], Provider Name:Valerio Garnica ier, 12/28/2025 10:30:00 AM, [address] [place] [address], [address], [phone], Progress Notes * Divya STRATTONOB:1955 (70 yo F)Acc No.[id number]:03/02/2025 Patient:?Tg STRATTON :1955???Age:70 Y???Sex:Female Address:[address] [place] [address], [address] * true * Date:? Generated for Gianni mendez/Kimberly/Chavaitting on:?04/02/2025 11:36 AM EDT
[2025-04-02 12:15] LABS: Appearance Urine Clear; Color Urine Dark Yellow; Glucose Urine UA Negative (Negative); Leukocyte Esterase Urine Trace (Negative); Nitrite Urine Negative (Negative); Specific Gravity - Urine >= 1.030 (1.005-1.025); UMIC TRIGGER UA YES; Urine Blood Negative (Negative); Urine Ketones Trace mg/dL (Negative); Urine Protein Trace mg/dL (Neg-Trace)
[2025-04-02 12:41] LABS: Bacteria Urine None Seen (None Seen); Hyaline Casts Urine 0-2 /LPF (0-2); RBC Urine 0-2 /HPF (0-2); Squamous Epithelial Cell Urine 0-2 /HPF (0-2); WBC Urine 0-5 /HPF (0-5)
== END 2025-04-02 11:10 | disposition home or self-care (01) ==
LOC: HO.LNP 11:09
PROVIDERS: Visit Provider Internal Medicine
DX: R31.9 Hematuria, unspecified (principal)
CPT/HCPCS: 81001

== ENCOUNTER 2025-05-06 09:01 | Outpatient (REF) | payer MEDICARE, SELFPAY ==
--- OUTSIDE RECORDS SUMMARY | 2025-03-02 10:27 | XMS_ITS ---
Author Organization Valerio Khanna MD Address [address] [place] [address] [place] [phone] Care Team Providers Care Supervisor Heading Name Role Phone Clemencia Valerio Primary Care Provider [phone] REASON FOR VISIT ? repeat urine apt Encounters Encounter Location Date Provider Diagnosis Valerio Khanna MD [address] [place] [address] [place] [phone] 03/02/2025 Valerio Khanna Plan Of Treatment Next Appt Details Provider Name:Valeiro Garnica ier, 06/22/2025 10:00:00 AM, [address] [place] [address], [address], [phone], Provider Name:Valerio Garciazulma ier, 12/22/2025 07:15:00 AM, [address] [place] [address], [phone], Provider Name:Valerio Garnica ier, 12/28/2025 10:30:00 AM, [address] [place] [address], [address], [phone], Progress Notes * Divya STRATTONOB:1955 (70 yo F)Acc No.[id number]:03/02/2025 Patient: Tg ELAM :1955 A ge:70 Y S ex:Female Address:[address] [place] [address], [address] * true * Date: Generated for Printi /Kimberly/Irwin on: 0 05/06/2025 09:09 AM EDT
[2025-05-06 10:03] LABS: Blood Urea Nitrogen 22 mg/dL (9-16); Estimated Glomerular Filt Rate > 60
== END 2025-05-06 09:02 | disposition home or self-care (01) ==
LOC: HO.LAB 09:01
PROVIDERS: PCP Internal Medicine; Visit Provider Nurse Practitioner Family
DX: Z87.891 Personal history of nicotine dependence (principal); R31.29 Other microscopic hematuria
CPT/HCPCS: 36415; 82565; 84520

== ENCOUNTER 2025-05-11 09:07 | Outpatient (REF) | payer MEDICARE, SELFPAY ==
--- OUTSIDE RECORDS SUMMARY | 2025-03-02 10:27 | XMS_ITS ---
Author Organization Valerio Khanna MD Address [address] [place] [address] [place] [phone] Care Team Providers Care Jet Piercer Operator Name Role Phone Clemencia Valerio Primary Care Provider REASON FOR VISIT ? repeat urine apt Encounters Encounter Location Date Provider Diagnosis Valerio Khanna MD [address] [place] [address] [place] [phone] 03/02/2025 Valerio Khanna Plan Of Treatment Next Appt Details Provider Name:Valerio Garnica ier, 06/22/2025 10:00:00 AM, [address] [place] [address], [address], [phone], Provider Name:Valerio Garciazulma ier, 12/22/2025 07:15:00 AM, [address] [place] [address], [phone], Provider Name:Valerio Garnica ier, 12/28/2025 10:30:00 AM, [address] [place] [address], [address], [phone], Progress Notes * Divya STRATTONOB:1955 (70 yo F)Acc No.[id number]:03/02/2025 Patient: Tg ELAM :1955 A ge:70 Y S ex:Female Address:[address] [place] [address], [address] * true * Date: Generated for Printi /Kimberly/Irwin on: 0 05/11/2025 09:31 AM EDT
--- NOTE | ~2025-05-11 | CT_ITS ---
EXAMINATION: CT ABDOMEN PELVIS UROGRAPHY WITHOUT THEN WITH IV CONTRAST HISTORY: Z87.891 - Personal history of nicotine dependence COMPARISON: There are no prior studies available for comparison. TECHNIQUE: CT scan of the abdomen and pelvis was performed before and after the intravenous administration of 85 mL Omnipaque 350. Postcontrast images were obtained using a split bolus technique. Coronal and sagittal reformatted images were generated and reviewed. Oral contrast material was not administered per department protocol. This CT exam was performed with one or more of the following dose reduction techniques: automated exposure control, adjustment of the mA and/or kV according to patient size, use of iterative reconstruction technique. DLP: 819 mGy-cm ABDOMEN: LOWER CHEST: The visualized lung bases are clear. There is no pleural effusion. CARDIOVASCULATURE: The heart is normal in size. There is no pericardial effusion. LIVER: The liver is normal in size and contour. No liver mass is identified. The hepatic and portal veins are patent. GALLBLADDER / BILE DUCTS: The gallbladder is unremarkable. There is no intra or extrahepatic biliary ductal dilatation. SPLEEN: The spleen is normal in size. No focal splenic lesion is identified. PANCREAS: The pancreas is unremarkable in appearance. ADRENAL GLANDS: The right adrenal gland is unremarkable. There is a 1.2 cm left adrenal nodule which measures 10.5 HU in density on the unenhanced examination, and likely represents an adenoma. KIDNEYS/RETROPERITONEUM: There is a punctate nonobstructing calculus in an interpolar calyx of the right kidney. No left renal calculi are identified. There is no hydronephrosis or hydroureter. There is a 1.7 cm cyst at the lower pole of the left kidney. Multiple additional smaller probable cysts are also noted in both kidneys. LYMPH NODES: No abdominal or pelvic lymphadenopathy. VASCULATURE: The abdominal aorta demonstrates atherosclerotic calcification, but is normal in caliber. MESENTERY/PERITONEUM: No free fluid. No masses. There is no free intraperitoneal gas. STOMACH: There is a small hiatal hernia. The remainder of the stomach is collapsed. SMALL BOWEL: The small bowel is normal in caliber. COLON: There is diverticulosis of the descending and sigmoid colon, without evidence of diverticulitis. APPENDIX: Normal. URINARY BLADDER/PELVIC ORGANS: The urinary bladder is nondistended, limiting evaluation. There is low-density centrally within the uterus. BONES / SOFT TISSUES: There is degenerative disc disease of the spine. CT/CT urogram IMPRESSION: 1. Punctate nonobstructing right renal calculus. Otherwise unremarkable CT urogram. 2. 1.2 cm left adrenal nodule which likely represents an adenoma. 3. Small hiatal hernia. Diverticulosis of the descending and sigmoid colon, without evidence of diverticulitis 4. Low density centrally within the uterus. Ultrasound evaluation is suggested. Electronically signed by: Mikael Helms MD 05/11/2025 11:00 AM EDT
[2025-05-11] MEDS: iohexoL 350 MG/ML 100 ML INFUS..BTL IV (09:59)
== END 2025-05-11 09:08 | disposition home or self-care (01) ==
LOC: HO.CT 09:07
PROVIDERS: PCP Internal Medicine; Visit Provider Nurse Practitioner Family
DX: R31.29 Other microscopic hematuria (principal); Z87.891 Personal history of nicotine dependence
CPT/HCPCS: 74178; Q9967

== ENCOUNTER → 2025-05-11 09:10 | Outpatient (BNV) | payer MEDICARE, SELFPAY | PROVIDERS: PCP Internal Medicine; Visit Provider Radiology Diagnostic Radiology | DX: N20.0 Calculus of kidney (principal); R91.1 Solitary pulmonary nodule; K44.9 Diaphragmatic hernia without obstruction or gangrene; N28.89 Other specified disorders of kidney and ureter | CPT/HCPCS: 74178 ==

== ENCOUNTER 2025-05-27 08:27 | Outpatient (REF) | payer MEDICARE, SELFPAY | END 2025-05-27 08:28 | disposition home or self-care (01) | LOC: HO.LNP 08:27 | PROVIDERS: PCP Internal Medicine; Visit Provider Nurse Practitioner Family | DX: R31.29 Other microscopic hematuria (principal); N20.0 Calculus of kidney; Z13.9 Encounter for screening, unspecified; Z79.899 Other long term (current) drug therapy; Z87.891 Personal history of nicotine dependence | CPT/HCPCS: 81003; 88112; 99212 ==

== ENCOUNTER 2025-05-27 08:27 | Outpatient (AMB) | payer MEDICARE, SELFPAY ==
--- OUTSIDE RECORDS SUMMARY | 2025-03-02 10:27 | XMS_ITS ---
Author Organization Valerio Khanna MD Address [address] [place] [address] [place] [phone] Care Team Providers Care Land Acquisition Manager Name Role Phone Clemencia Valerio Primary Care Provider [phone] REASON FOR VISIT ? repeat urine apt Encounters Encounter Location Date Provider Diagnosis Valerio Khanna MD [address] [place] [address] [place] [phone] 03/02/2025 Valerio Khanna Plan Of Treatment Next Appt Details Provider Name:Valerio Garnica ier, 06/22/2025 10:00:00 AM, [address] [place] [address], [address], [phone], Provider Name:Valerio Garciazulma ier, 12/22/2025 07:15:00 AM, [address] [place] [address], [phone], Provider Name:Valerio Garnica ier, 12/28/2025 10:30:00 AM, [address] [place] [address], [address], [phone], Progress Notes * Divya STRATTONOB:1955 (70 yo F)Acc No.[id number]:03/02/2025 Patient: Tg ELAM :1955 A ge:70 Y S ex:Female Address:[address] [place] [address], [address] * true * Date: Generated for Printi /Kimberly/Irwin on: 0 05/27/2025 08:40 AM EDT
--- NOTE | 2025-05-27 08:27 | MHC.OFFVIS ---
Intake Visit Reasons: 3m/CT/labs(set) Intake Note: patient presents today for follow up visit for microscopic hematuria Imaging CT : 05/11/2025 Urology Medication:none Blood Thinner:none Antibiotic Allergies:none Accompanied by: Self / Same As Patient Allergies No Known Allergies Allergy (Verified 05/27/25 09:06) Medication List - Last Reconciled 05/27/25 by JD Pérez- escitalopram oxalate 10 mg PO DAILY ibuprofen 800 mg PO TID levothyroxine 112 mcg PO QAM HPI Comments Details: Cem is a very pleasant 70-year-old female patient of Dr. Khanna. She has a past medical history of goiter, hypertension, and vitamin-D deficiency. She presents to the office today for follow up of her microscopic hematuria in the setting of nicotine dependence. Of note, patient was seen approximately 3 months ago at which time a CT urogram was ordered for further assessment evaluation. These results were reviewed and communicated with the patient today. 05/29 Punctate nonobstructing right renal calculus. Otherwise unremarkable CT urogram. 1.2 cm left adrenal nodule which likely represents an adenoma. Small hiatal hernia. Diverticulosis of the descending and sigmoid colon, without evidence of diverticulitis. Low density centrally within the uterus. Ultrasound evaluation is suggested. Urine Cytology 02/27 Negative for high-grade urothelial carcinoma. In office urinalysis today does not note any microscopic hematuria. She does have a previous history of nicotine dependence since the age of [age] years old however quit over 40 years ago. She reports when she was smoking she would smoke at least 1 pack per day. When asked she currently denies any bothersome urinary issues. She denies urinary urgency, urinary frequency, incontinence, nocturia, gross/visible hematuria, dysuria, foul smelling urine, changes to urinary stream, flank pain, fever, and or chills. She is happy with her current voiding parameters. We discussed at length potential causes of microscopic hematuria as well as further workup to include cystoscopy versus surveillance monitoring. Risks and benefits of these interventions were discussed. She does discuss her reluctancy in following up with healthcare providers. She does not wish to proceed with cystoscopy at this time. Will continue with surveillance monitoring. All questions were answered. She otherwise offers no other issues or concerns at this time. [facility] Medical History Toxic multinodular goiter Vitamin D deficiency Multinodular thyroid Hyperthyroidism Surgical History Hx of total thyroidectomy History of foot surgery Hx of cataract surgery Family History Father Diabetes mellitus Mother HTN (hypertension) Social History Alcohol intake: current Alcohol intake frequency: holidays/special occasions only Patient Tobacco Use Status: Former Tobacco user Cigarette Packs Per Day: 2 Years Smoked: 15 Review of Systems Const All systems reviewed & are unremarkable except as noted in HPI and below Physical Exam Const General: cooperative, healthy appearing, comfortable, no acute distress, well developed, alert and awake Orientation/consciousness: patient oriented x3 Limitations: no limitations HEENT Head: Yes normal to inspection, Yes normocephalic and Yes atraumatic Ears: hearing grossly normal bilaterally Eyes General: appearance normal, both eyes and all related structures Neck Neck: Yes normal visual inspection and Yes trachea midline Chest Chest palpation & inspection: normal inspection of the chest Resp Effort & Inspection: normal respiratory effort and able to speak in complete sentences Cardio Rate: regular rate GI Inspection: Yes normal to inspection General: Yes no CVA tenderness Back/Spine/Pelvis Back: no CVA tenderness Skin General skin exam: no rashes or lesions noted Neuro General: patient oriented x3 Extrem General: Yes normal to inspection Psych Appearance: grossly normal and well kempt Mental Status: mental status grossly normal Speech and movement: Normal speech and movement present and Clear speech present Affect: normal affect Attitude: cooperative Thought process: Normal thought process present Thought content: Normal thought content present Insight: Fair insight present (Psych) Judgement: Fair judgement present (Psych) Results Reviewed Results Reviewed: Date of Service: 05/11/25 Procedure(s): CT urogram ABDOMEN: LOWER CHEST: The visualized lung bases are clear. There is no pleural effusion. CARDIOVASCULATURE: The heart is normal in size. There is no pericardial effusion. LIVER: The liver is normal in size and contour. No liver mass is identified. The hepatic and portal veins are patent. GALLBLADDER / BILE DUCTS: The gallbladder is unremarkable. There is no intra or extrahepatic biliary ductal dilatation. SPLEEN: The spleen is normal in size. No focal splenic lesion is identified. PANCREAS: The pancreas is unremarkable in appearance. ADRENAL GLANDS: The right adrenal gland is unremarkable. There is a 1.2 cm left adrenal nodule which measures 10.5 HU in density on the unenhanced examination, and likely represents an adenoma. KIDNEYS/RETROPERITONEUM: There is a punctate nonobstructing calculus in an interpolar calyx of the right kidney. No left renal calculi are identified. There is no hydronephrosis or hydroureter. There is a 1.7 cm cyst at the lower pole of the left kidney. Multiple additional smaller probable cysts are also noted in both kidneys. LYMPH NODES: No abdominal or pelvic lymphadenopathy. VASCULATURE: The abdominal aorta demonstrates atherosclerotic calcification, but is normal in caliber. MESENTERY/PERITONEUM: No free fluid. No masses. There is no free intraperitoneal gas. STOMACH: There is a small hiatal hernia. The remainder of the stomach is collapsed. SMALL BOWEL: The small bowel is normal in caliber. COLON: There is diverticulosis of the descending and sigmoid colon, without evidence of diverticulitis. APPENDIX: Normal. URINARY BLADDER/PELVIC ORGANS: The urinary bladder is nondistended, limiting evaluation. There is low-density centrally within the uterus. BONES / SOFT TISSUES: There is degenerative disc disease of the spine. IMPRESSION: 1. Punctate nonobstructing right renal calculus. Otherwise unremarkable CT urogram. 2. 1.2 cm left adrenal nodule which likely represents an adenoma. 3. Small hiatal hernia. Diverticulosis of the descending and sigmoid colon, without evidence of diverticulitis 4. Low density centrally within the uterus. Ultrasound evaluation is suggested. Assessment & Plan Assessment & Plan (1) Microscopic hematuria: Code(s): R31.29 - Other microscopic hematuria Category: Medical (2) History of nicotine dependence: Code(s): Z87.891 - Personal history of nicotine dependence Category: Medical (3) Nephrolithiasis: Code(s): N20.0 - Calculus of kidney Category: Medical Plan In office urinalysis results reviewed with the patient today; as noted above; no microscopic hematuria noted. Recent CT urogram results reviewed with the patient today; as noted above. We did discussed further workup to include cystoscopy versus surveillance monitoring; risks and benefits of these interventions were discussed. All questions were answered. She would like to proceed with surveillance monitoring at this time. She currently denies any bothersome urinary issues or concerns. She reports be happy with current voiding parameters. Follow-up in 6 months; or sooner with any issues, concerns, and or questions. Orders: Orders AMB Urinalysis Automated Today Z13.9 - Encounter for screening, unspecified Urine Cytology Today R31.29 - Other microscopic hematuria Patient Instructions: The patient had an opportunity to ask questions regarding the treatment plan. All questions were answered. Physical exam, labs, and imaging were discussed and reviewed in detail. As well as risks, benefits, and discussion of treatment choices. No major barriers to understanding were identified. The patient expressed understanding and agreement with the above treatment plan. The patient was made aware they should contact our office by phone for worsening of their current condition, the appearance of new symptoms, or with any questions or concerns. Compliance is encouraged with any medications and follow up testing that is ordered. It is a privilege to be allowed the opportunity to participate in? your urological care.? Again, if you have any questions or concerns If you have any questions or concerns please do not hesitate to contact me. The office is [phone]. This note is constructed using voice recognition software. While every effort has been made to ensure accuracy residential life director errors may have been included. Yours sincerely, LAKESHIA Pérez Coding Level of Care Code Est Pt Level 3 (87800) Diagnoses Microscopic hematuria R31.29 History of nicotine dependence Z87.891 Nephrolithiasis N20.0
== END 2025-05-27 08:55 | disposition home or self-care (01) ==
LOC: HO.HUSH 08:27
PROVIDERS: PCP Internal Medicine; Visit Provider Nurse Practitioner Family
DX: R31.29 Other microscopic hematuria (principal); Z87.891 Personal history of nicotine dependence; N20.0 Calculus of kidney; Z13.9 Encounter for screening, unspecified
CPT/HCPCS: 99213

== ENCOUNTER 2025-06-09 11:06 | Outpatient (REF) | payer MEDICARE, SELFPAY ==
--- OUTSIDE RECORDS SUMMARY | 2025-03-17 06:15 | XMS_ITS ---
Author Organization Valerio Khanna MD Address [address] [place], [place] [phone] Care Team Providers Care Geoscientist Name Role Phone Valerio Khanna Primary Care Provider [phone] Allergies No Known Allergies REASON FOR VISIT [...] Khanna MD [address] [place], [place] [phone] 03/17/2025 Valerio Khanna Arthralgia M25.50 Assessments Encounter [...] Follow Up: 3 Months, Reason: Provider Name:Valerio Rowdy Danika ier, 06/22/2025 10:00:00 AM, [address] [place] [address], Suite [facility], [place], [place], [phone], Provider Name:Valerio Reno Danika ier, 12/22/2025 07:15:00 AM, [address] [place] [address], Suite [facility], [place], [place], [phone], Provider Name:Valerio Reno Danika moellerr, 12/28/2025 10:30:00 AM, [address] [place] [address], [place] [address], [place], [place], [phone], Progress Notes * Faby STRATTONBashirOB:1955 (70 yo F)Acc No.[id number]:03/17/2025 Progress Notes Patient: Tg ELAM Provider: Qing Khanna MD :1955 A ge:70 Y S ex:Female Date:03/17/2025 Address:[address] [place] [address] Subjective: * Chief Complaints: * 3 week [...] MD Date: 0 03/17/2025 Generated for Gianni mendez/Kimberly/Chavaitting on: 0 06/09/2025 11:53 AM EDT History and Physical Notes * [...]
== END 2025-06-09 11:07 | disposition home or self-care (01) ==
LOC: HO.LAB 11:06
PROVIDERS: PCP Internal Medicine; Visit Provider Nurse Practitioner Family
DX: R31.29 Other microscopic hematuria (principal); Z87.891 Personal history of nicotine dependence
CPT/HCPCS: 88112

== ENCOUNTER 2025-07-27 13:27 | Outpatient (REF) | payer MEDICARE, SELFPAY ==
--- NOTE | ~2025-07-27 | US_ITS ---
CLINICAL HISTORY: abnormal C.T. (low density centrally on uterus), US recommended Ultrasound of the female pelvis Comparison: CT/SR - CT ABDOMEN PELVIS UROGRAPHY WITHOUT THEN WITH IV CONTRAST - 05/11/25 09:23 EDT Technique: Grayscale ultrasound with assistance of color Doppler. Transabdominal scanning performed for overall anatomy. Transvaginal scanning performed for better anatomic delineation. Findings: Anteverted atrophic uterus measures 6.2 x 2.0 x 4.3 cm, homogeneous myometrium, no fibroid is visualized. The endometrium is abnormal, 9 mm in thickness, heterogeneous with lobulated isoechoic components and anechoic cystic foci, on cine images, there is some motion associated with the isoechoic component, suggestive of complex fluid, color Doppler demonstrates no abnormal vascular flow. Unremarkable cervix. Bilateral ovaries are normal for the age, right ovary measures 2.0 x 1.0 x 1.9 cm, left ovary 1.8 x 1.4 x 0.9 cm, no suspicious ovarian lesion or abnormal vascular flow. No free fluid. Impression: Abnormal thick endometrium contains complex fluid, mass is difficult to exclude, recommend considering further evaluation by hysteroscopy and tissue sampling if needed. This document has been electronically signed by: Cindy Cox MD on 07/28/2025 13:47:15
--- OUTSIDE RECORDS SUMMARY | 2025-07-27 15:51 | XMS_ITS | Patient Health Record ---
Demographics Address [address] [place] [address] Mobile Preferred Language en Marital Status Yazidi Affiliation Unknown Race White
== END 2025-07-27 13:28 | disposition home or self-care (01) ==
LOC: HO.US 13:27
PROVIDERS: PCP Internal Medicine; Visit Provider Internal Medicine
DX: R93.89 Abnormal findings on diagnostic imaging of other specified body structures (principal)
CPT/HCPCS: 76830; 76856

== ENCOUNTER → 2025-07-27 14:09 | Outpatient (BNV) | payer MEDICARE, SELFPAY | PROVIDERS: PCP Internal Medicine; Visit Provider Radiology Diagnostic Radiology | DX: N85.00 Endometrial hyperplasia, unspecified (principal) | CPT/HCPCS: 76830; 76856 ==

== ENCOUNTER 2025-08-26 08:29 | Outpatient (AMB) | payer MEDICARE, SELFPAY ==
--- OUTSIDE RECORDS SUMMARY | 2025-01-23 05:00 | XMS_ITS ---
Author Organization Valerio Khanna MD Address [address] [place], [place] [id number] Care Team Providers Care Human Resources Department Supervisor Name Role Phone Valerio Khanna Primary Care Provider [phone] Allergies No Known Allergies REASON FOR VISIT 4 weeks Medications Medication SIG (Take, Route, Frequency, Duration) Notes Start Date End Date Status Aspirin 81 81 MG 1 tablet Orally Once a day for 30 day(s) Not-Taking Multi Adult Gummies - as directed Orally 0 Not-Taking Ibuprofen 200 MG 1 tablet with food o r milk as needed Orally Three times a day Not-Taking Levothyroxine Sodium 112 MCG TAKE 1 TABLET BY MOUTH EVERY DAY IN THE MORNING ON EMPTY STOMACH FOR 90 DAYS Active predniSONE 10 MG 1 tablet Orally Once a day for 30 days 06/26/2024 Not-Taking Escitalopram Oxalate 10 MG 1 tablet Oral ly Once a day for 30 days 01/23/2025 Active Valsartan 80 MG 1 tablet Orally Once a day for 30 day(s) 01/23/2025 Active Problems Problem Type SNOMED Code ICD Code Onset Dates Problem Status W/U Status Risk Notes Problem Essential hypertension (18778280) Essential hypertension (I10) Active confirmed Problem Anxiety (25492671) Anxiety (F41.9) Active confirmed Vital Signs Blood pressure systolic 150 mm Hg 01/24/20 25 Blood pressure diastolic 84 mm Hg 025 Height 64.50 in 01/23/2025 Weight 188 lbs 01/23/2025 BMI 31.77 kg/m2 01/23/2025 weight is up 6 pounds since 12-25-24 Encounters Encounter Location Date Provider Diagnosis Valerio Khanna MD [address] [place] [address] [place] [id number] 01/23/2025 Valerio Khanna Essential hypertension I10 ; Anxiety F41.9 and Spinal stenosis M48.00 Assessments Encounter Date Diagnosis (ICD Code) Assessment Notes Treatment Notes Treatment Clinical Notes Section Notes 01/23/2025 Essential hypertension (ICD-10 - I10) will start meds, patient verbalized understanding of medication and directions for use 01/23/2025 Anxiety (ICD-10 - F41.9) will try some citalopram, and will monitor 01/23/2025 Spinal stenosis (ICD-10 - M48.00) order faxed to [facility] , pending diagnostic testing Plan Of Treatment Medication Medication Name Sig Start Date Stop Date Notes Escitalopram Oxalate 10 MG 1 tablet Oral ly Once a day for 30 days 01/23/2025 Valsartan 80 MG 1 tablet Orally Once a day for 30 day(s) 01/23/2025 Treatment Notes Assessment Notes Essential hypertension will start meds, patient verbalized understanding of medication and directions for use Anxiety will try some citalo pram, and will monitor Spinal stenosis order faxed to [facility] , pending diagnostic testing Pending Test Test Name Order Date CT lumbar spine wo con 01/23/2025 Next Appt Details Follow Up: 4 Weeks, Reason: Provider Name:Valerio cassidy, 12/22/2025 07:15:00 AM, [address] [place] [address], [address], [phone], Provider Name:Valerio cassidy, 12/28/2025 10:30:00 AM, [address] [place] [address], [address], [phone], Progress Notes * Divya STRATTONOB:1955 (69 yo F)Acc No.[id number]:01/23/2025 Progress Notes Patient: Tg ELAM Provider: Qing Khanna MD :1955 A ge:69 Y S ex:Female Date:01/23/2025 Address:[address] [place], [place] [phone] Subjective: * Chief Complaints: * 4 weeks * HPI: S ymptom(s): patibryan is a 69 yo female here for 4 week follow up visit. * ROS: G eneral/Constitutional: Denies C hills. D enies F atigue. D enies F ever. D enies H eadache. E NT: Denies S ore throat. E ndocrine: Denies C old intolerance. A dmits D ifficulty sleeping. D enies D izziness. D enies E xcessive sweating. D enies E xcessive thirst. D enies F requent urination. R espiratory: Denies C ough. D enies S hortness of breath at rest. D enies S hortness of breath with exertion. G astrointestinal: Denies D iarrhea. D enies N ausea. M usculoskeletal: Patient complaining of b oth legs are week and at times tingling all the way down. * Medical History: * Surgical History: * Hospitalization/Major Diagno stic Procedure: * Medications: T akingLevothyroxine Sodium 112 MCG Tablet TAKE 1 TABLET BY MOUTH EVERY DAY IN THE MORNING ON EMPTY STOMACH FOR 90 DAYS Taking Levothyroxine Sodium 112 MCG Tablet TAKE 1 TABLET BY MOUTH EVERY DAY IN THE MORNING ON EMPTY STOMACH FOR 90 DAYS Not-Taking/PRNpredniSONE 10 MG Tablet 1 tablet Orally Once a day Ibuprofen 200 MG Tablet 1 tablet with food or milk as needed Orally Three times a day Aspirin 81 81 MG Tablet Delayed Release 1 tablet Orally Once a day Multi Adult Gummies - Tablet Chewable as directed Orally Medication List reviewed and reconciled with the patientNot-Taking/PRN predniSONE 10 MG Tablet 1 tablet Orally Once a day Not-Taking/PRN Ibuprofen 200 MG Tablet 1 tablet with food or milk as needed Orally Three times a day Not-Taking/PRN Aspirin 81 81 MG Tablet Delayed Release 1 tablet Orally Once a day Not-Taking/PRN Multi Adult Gummies - Tablet Chewable as directed Orally Medication List reviewed and reconciled with the patient * Allergies: N .K.D.A.yes[Allergies Verified] Objective: * Vitals: H t: 64.50, Wt: 188, BMI:31.77, BP:150/84, Repeat BP:150/92, Wt-k.28. weight is up 6 pounds since 12-25-24. * Examination: G eneral Examination: GENERAL APPEARANCE: a lert, well hydrated, in no distress.? SKIN: g ood turgor. HEART: r egular rate and rhythm, no murmurs, rubs, gallops.? LUNGS: n o wheezes, rales, rhonchi, good air movement, clear to auscultation bilaterally. Assessment: * Assessment: 1. E ssential hypertension - I10 (Primary) 2 . A nxiety - F41.9 ?3. S marisol stenosis - M48.00 Plan: * Treatment: 2. A nxiety Start Escitalopram Oxalate Tablet, 10 MG, 1 tablet, Orally, Once a day, 30 days, 30, Refills 3.? Notes: will try some citalopram, and will monitor 3. S marisol stenosis I maging: CT lumbar spine wo con Notes: order faxed to [facility] , pending diagnostic testing * Procedure Codes: * Follow Up: 4 Weeks * * Sign off status: Completed true * Provider: Qing Khanna MD Date: 0 01/23/2025 Generated for Gianni mendez/Kimberly/Chavaitting on: 08:47 AM EDT History and Physical Notes * HPI (History of Present Illness) Category Sub-Category Detail Notes Category Not es Symptom(s) omkar is a 69 yo female here for 4 week follow up visit Examination Category Sub-Category Detail Notes Category Not es General Examination GENERAL APPEARANCE: alert, w ell hydrated, in no distress HEART: regular rate and rhy thm, no murmurs, rubs, gallops LUNGS: no wheezes, rales, r honchi, good air movement, clear to auscultation bilaterally SKIN: good turgor
--- OUTSIDE RECORDS SUMMARY | 2025-02-19 10:03 | XMS_ITS ---
Author Organization Valerio Khanna MD Address [address] [place] [phone] Care Team Providers Care Insurance Territory Manager Name Role Phone GrazynaSarah carolinan Primary Care Provider REASON FOR VISIT refill Medications Medication SIG (Take, Route, Fr equency, Duration) Notes Start Date End Date Status Valsartan 80 MG 1 tablet Orally Once a day for 30 days 01/23/2025 Active Encounters Encounter Location Date Provider Diagnosis Valerio Khanna MD [address] [place] [phone] 02/19/2025 Valerio Khanna Essential hypertension I10 Assessments Encounter Date Diagnosis (ICD Code) Assessment Notes Treatment Notes Treatment Clinical Notes Section Notes 02/19/2025 Essential hypertension (ICD-10 - I10) Plan Of Treatment Medication Medication Name Sig Start Date Stop Date Notes Valsartan 80 MG 1 tablet Orally Once a day for 30 days Next Appt Details Provider Name:Valerio cassidy, 12/22/2025 07:15:00 AM, [address] [facility], [address] [place] [address], [phone], Provider Name:Valerio cassidy, 12/28/2025 10:30:00 AM, [address] [place] [address], [address] [place] [address], [phone], Progress Notes * Roger STRATTON:1955 (70 yo F)Acc No.[id number]:02/19/2025 Patient: Tg ELAM :1955 A ge:70 Y S ex:Female Address:[address] [place] [address], [address] * Refills Refill Valsartan Tablet, 80 MG, Orally, 30, 1 tablet, Once a day, 30 days, Refills=11 * true * Date: Generated for Gianni mendez/Kimberly/Chavaitting on: 08:46 AM EDT
--- OUTSIDE RECORDS SUMMARY | 2025-02-24 06:15 | XMS_ITS ---
Author Organization Valerio Khanna MD Address [address] [place], [place] [id number] Care Team Providers Care Care Coordinator Name Role Phone Clemencia Valerio Primary Care Provider Allergies No Known Allergies Results Component Value Reference Range Notes Complete Blood Count Auto Di ff Reviewed date:02/24/2025 06:32:02 PM Interpretation: Performing Lab:[facility], [address] [place] [phone] Notes/Report: White Blood Count 7.7 4.8-10.8 X10*3/uL [...] te Reviewed date:02/24/2025 06:31:37 PM Interpretation: Performing Lab:[facility], [address] [place] [phone] Notes/Report: Erythrocyte Sedimentation Rate 2 0-20 MM/HR Patients with polycythemia and many hemoglobin abnormalities may have depressed sed rates whereas patients with anemia may have elevated sed rates. Comprehensive [place]. Panel Fa st Reviewed date:02/25/2025 12:32:54 PM Interpretation: Performing Lab:[facility], [address] [place] [phone] Notes/Report: Sodium 141 135-145 mmol/L Potassium 4.1 [...] T4 Reviewed date:02/25/2025 12:33:04 PM Interpretation: Performing Lab:[facility], [address], [place] [address] Notes/Report: TSH reflex Free T4 1.95 0.32-4.0 [...] kg/m2 02/24/2025 weight is down 10 pounds [facility] 01-23-25 Encounters Encounter Location Date Provider Diagnosis Valerio Khanna MD [address] [place], [place] [phone] 02/24/2025 Valerio Khanna Hyperthyroidism E05. 90 and [...] Name:Valerio Garnica ier, 12/22/2025 07:15:00 AM, [address] [facility], [address], [place], [place], [phone], Provider Name:Valerio Garnica ier, 12/28/2025 10:30:00 AM, [address] [facility], [address], [place], [place], [phone], Progress Notes * Faby STRATTONBashirOB:1955 (70 yo F)Acc No.[id number]:02/24/2025 Progress Notes Patient: Tg ELAM Provider: Qing hKanna MD :1955 A ge:70 Y S ex:Female Date:02/24/2025 Address:[address] [place], [place] [phone] Subjective: * Chief Complaints: * 4 week [...] MD Date: 0 02/24/2025 Generated for Gianni mendez/Kimberly/Chavaitting on: 08:47 AM [...]
--- OUTSIDE RECORDS SUMMARY | 2025-03-02 10:27 | XMS_ITS ---
Author Organization Valerio Khanna MD Address [address] [place] [address] [place] [phone] Care Team Providers Care Oncology Physician Name Role Phone Clemencia Valerio Primary Care Provider REASON FOR VISIT ? repeat urine apt Encounters Encounter Location Date Provider Diagnosis Valerio Khanna MD [address] [place] [address] [place] [phone] 03/02/2025 Valerio Khanna Plan Of Treatment Next Appt Details Provider Name:Valerio Garciazulma ier, 12/22/2025 07:15:00 AM, [address] [place] [address], [place] [address], [place], [place], [phone], Provider Name:Valerio Rowdy Garnica ier, 12/28/2025 10:30:00 AM, [address] [place] [address], [place], [place], [phone], Progress Notes * Divya STRATTONOB:1955 (70 yo F)Acc No.[id number]:03/02/2025 Patient: Tg ELAM :1955 A ge:70 Y S ex:Female Address:[address] [place] [address], [address] * true * Date: Generated for Printi ng/Faxing/eTransmitting on: 08:45 AM EDT
--- OUTSIDE RECORDS SUMMARY | 2025-03-17 06:15 | XMS_ITS ---
Author Organization Valerio Khanna MD Address [address] [place], [place] [phone] Care Team Providers Care Granite Polisher Name Role Phone Valerio Khanna Primary Care [...] Khanna MD [address] [place], [place] [phone] 03/17/2025 Valerio Khanna Arthralgia M25.50 Assessments Encounter [...] Name:Valerio Garnica ier, 12/22/2025 07:15:00 AM, [address], [address], [place], [place], [phone], Provider Name:Valerio Garnica ier, 12/28/2025 10:30:00 AM, [address] [facility], [address], [place], [place], [phone], Progress Notes * Divya STRATTONOB:1955 (70 yo F)Acc No.[id number]:03/17/2025 Progress Notes Patient: Tg ELAM Provider: Qing Khanna MD :1955 A ge:70 Y S ex:Female Date:03/17/2025 Address:[address] [place], [place] [phone] Subjective: * Chief Complaints: * 3 week [...] Khanna MD Date: 0 03/17/2025 Generated for Gianin mendez/Kimberly/Irwin on: 1 08:45 AM EDT History and Physical Notes * [...]
--- OUTSIDE RECORDS SUMMARY | 2025-04-02 03:45 | XMS_ITS ---
Author Organization Valerio Khanna MD Address [address] [place], [place] [phone] Care Team Providers Care Acting Professor Name Role Phone ClemenciaSarahn Primary Care Provider Results Component Value Reference Range Notes Urinalysis and Microscopic Reviewed date:04/02/2025 04:32:10 PM Interpretation: Performing Lab:[facility], [address] [place] [phone] Notes/Report: Color Urine Dark Yellow Appearance Urine Clear PH 5.0 5.0-9.0 Glucose Urine UA Negative Negative mg/dL Urine Blood Negative Negative Specific [place] - Urine >= 1.030 1.005-1.025 Urine Protein [...] Khanna MD [address] [place], [place] [phone] 04/02/2025 Valerio Khanna Hematuria, unspecified type R31.9 Assessments Encounter Date Diagnosis (ICD Code) Assessment Notes Treatment Notes Treatment Clinical Notes Section Notes 04/02/2025 Hematuria, unspecified type (ICD-10 - R31.9) Plan Of Treatment Next Appt Details Provider Name:Valerio cassidy, 12/22/2025 07:15:00 AM, [address], [address], [place], [place], [phone], Provider Name:Valerio Garnica ier, 12/28/2025 10:30:00 AM, [address], [address], [place], [place], [phone], Progress Notes * Divya STRATTONOB:1955 (70 yo F)Acc No.[id number]:04/02/2025 Progress Note Patient: Tg ELAM Provider: Qing Khanna MD :1955 A ge:70 Y S ex:Female Date:04/02/2025 Address:[address] [place], [place] [phone] Subjective: * Chief Complaints: * 1 . [...] Pending * Provider: Qing Khanna MD Date: 0 04/02/2025 Generated for Gianni mendez/Kimberly/Chavaitting on: 08:46 AM EDT
--- OUTSIDE RECORDS SUMMARY | 2025-06-01 09:44 | XMS_ITS ---
Author Organization Valerio Khanna MD Address [address] [place] [phone] Care Team Providers Care Agronomy Internship Name Role Phone Valerio Khanna Primary Care Provider [phone] REASON FOR VISIT pelvic us order Encounters Encounter Location Date Provider Diagnosis Valerio Khanna MD [address] [place] [address] Drive [address] [place] [id number] 06/01/2025 Valerio Khanna Abnormal CAT scan R93.89 Assessments Encounter Date Diagnosis (ICD Code) Assessment Notes Treatment Notes Treatment Clinical Notes Section Notes 06/01/2025 Abnormal CAT scan (ICD-10 - R93.89) Plan Of Treatment Pending Test Test Name Order Date US pelvic and transvaginal 06/01/2025 Next Appt Details Provider Name:Valerio Garnica ier, 12/22/2025 07:15:00 AM, [address] [place] [address], [address], [phone], Provider Name:Valerio Reno Danika ier, 12/28/2025 10:30:00 AM, [address] [place] [address], [address], [phone], Progress Notes * Roger STRATTON:1955 (70 yo F)Acc No.[id number]:06/01/2025 Patient: Tg ELAM :1955 A ge:70 Y S ex:Female Address:[address] [place] [address], [place] [address] Subjective: * Chief Complaints: * P elvic us order * Medical History: * Surgical History: * Hospitalization/Major Diagno stic Procedure: * Medications: Objective: * Vitals: * Physical Examination: Assessment: * Assessment: 1. A bnormal CAT scan - R93.89 Plan: * Treatment: * Procedure Codes: * true * Date: Generated for Gianni mendez/Kimberly/eTransmitting on: 08:46 AM EDT
--- OUTSIDE RECORDS SUMMARY | 2025-06-22 06:00 | XMS_ITS ---
Author Organization Valerio Khanna MD Address [address] [place], [place] [phone] Care Team Providers Care Scribing Machine Operator Name Role Phone Clemencia Valerio Primary Care Provider [phone] Allergies No Known Allergies REASON FOR VISIT [...] Status Risk Notes Problem Carpal tunnel syndrome (03971203) Carpal tunnel syndrome (G56.00) Active confirmed Vital Signs Blood pressure systolic 120 mm Hg 06/22/20 25 Blood pressure diastolic 70 mm Hg 025 Height 64.50 in 06/22/2025 Weight 178 lbs 06/22/2025 BMI 30.08 kg/m2 06/22/2025 Encounters Encounter Location Date Provider Diagnosis Valerio Khanna MD [address] [place] [address] [place] [phone] 06/22/2025 Valerio Khanna Carpal tunnel syndrome G56.00 [...] Reason: Provider Name:Valerio cassidy, 12/22/2025 07:15:00 AM, [address] [place] [address], [address], [phone], Provider Name:Valerio cassidy, 12/28/2025 10:30:00 AM, [address] [place] [address], [place] [address], [place], [place], [phone], Progress Notes * Divya STRATTONOB:1955 (70 yo F)Acc No.[id number]:06/22/2025 Progress Notes Patient: Jose Alberto DOSSTg MEAD Provider: Qing Khanna MD :1955 A ge:70 Y S ex:Female Date:06/22/2025 Address:[address] [place] [address] Subjective: * Chief Complaints: * 3 monthPatient [...] 0 06/22/2025 Generated for Gianni mendez/Kimberly/Kaitsmitting on: 1 08:46 AM EDT History and Physical Notes * [...]
--- OUTSIDE RECORDS SUMMARY | 2025-07-21 12:30 | XMS_ITS ---
Author Organization Valerio Khanna MD Address [address] [place] [address] [place] [phone] Care Team Providers Care Electronics Scale Tester Name Role Phone Clemencia Valerio Primary Care Provider [phone] REASON FOR VISIT 4 week Encounters Encounter Location Date Provider Diagnosis Valerio Khanna MD [address] [place] [address] [place] [phone] 07/21/2025 Valerio Khanna Plan Of Treatment Next Appt Details Provider Name:Valerio Garnica ier, 12/22/2025 07:15:00 AM, [address] [place] [address], [place] [address], [place], [place], [phone], Provider Name:Valerio Garciazulma ier, 12/28/2025 10:30:00 AM, [address] [place] [address], [place] [address], [place], [place], [phone], Progress Notes * Divya STRATTONOB:1955 (70 yo F)Acc No.[id number]:07/21/2025 Progress Notes Patient: Tg ELAM Provider: Qing Khanna MD :1955 A ge:70 Y S ex:Female Date:07/21/2025 Address:[address] [place] [address] Subjective: * Chief Complaints: * 1 . [...] 0 07/21/2025 Generated for Gianni mendez/Kimberly/Irwin on: 1 08:47 AM EDT
--- OUTSIDE RECORDS SUMMARY | 2025-07-28 10:20 | XMS_ITS ---
Author Organization Valerio Khanna MD Address [address] [place], [place] [id number] Care Team Providers Care Bond Trader Name Role Phone RadhaValerio demarco Primary Care [...] Date Provider Diagnosis Valerio Khanna MD [address] [place], [place] [id number] 07/28/2025 Valerio Khanna Plan Of Treatment Referrals Referral Date Details 07/30/2025 07/30/2025, please e jeanine and treatADITI Next Appt Details Provider Name:Valreio cassidy, 12/22/2025 07:15:00 AM, [address] [place] [address] Drive, [address], [place], [place], [id number], Provider Name:Valerio cassidy, 12/28/2025 10:30:00 AM, [address], [address], [place], [place], [phone], Progress Notes * Roger STRATTON:1955 (70 yo F)Acc No.[id number]:07/28/2025 Patient: Tg ELAM :1955 A ge:70 Y S ex:Female Address:[address] [place] [address], [id number] Subjective: * Chief Complaints: * r naldo US * Medical History: * Surgical History: * Hospitalization/Major Diagno stic Procedure: * Medications: Objective: * Vitals: * Physical Examination: Assessment: Plan: * Treatment: * Procedure Codes: * true * Date: Generated for Gianni mendez/Kimberly/eTransmitting on: 08:46 AM EDT Consultation Request Notes Referral Date Referring Provider Referred Provider Not 07/30/2025 Valerio Khanna MARC please eval and treat
--- OUTSIDE RECORDS SUMMARY | 2025-08-26 08:47 | XMS_ITS | Patient Health Record ---
Author Organization Valerio Khanna MD Address [address] [place], [place] [id number] Care Team Providers Care Spoon Maker Name Role Phone Clemencia Valerio Primary Care Provider [phone] Allergies No Known Allergies Results Component Value Reference Range Notes Complete Blood Count Auto Di ff Reviewed date:12/16/2024 12:47:46 PM Interpretation: Performing Lab:[facility], [address] [place] [phone] Notes/Report: White Blood Count 8.9 4.8-10.8 X10*3/uL [...] 0.0-0.2 /100WBC Neutrophils Absolute Auto 5.2 2.0-8.3 x10*3/uL Imm Gran Abs Auto 0.11 0.00-0.03 X10*3/uL Lymphocytes Absolute Auto 2.5 1.2-4.9 X10*3/uL Monocytes Absolute Auto 0.7 0.1-1.2 X10*3/uL Eosinophils Absolute Auto 0.3 0.0-0.4 X10*3/uL Basophils Absolute Auto 0.1 0.0-0.2 X10*3/uL NRBC Abs Auto 0.000 0.0-0.012 X10*3/uL UA ClnCatch+Micro w/rflx Cul t Reviewed date:12/25/2024 10:12:36 AM Interpretation:12-25-24 Performing Lab:[facility], [address] [place] [phone] Notes/Report: Urine, Clean Catch Color Urine DK YELLOW Appearance Urine Clear PH 5.5 5.0-9.0 Glucose Urine UA Negative Negative mg/dL Urine Blood Moderate (2+) Negative Specific Huntly - Urine >= 1.030 1.005-1.025 Urine Protein 30 (1+) Neg-Trace mg/dL Urine Ketones Negative Negative mg/dL Nitrite Urine Negative Negative Leukocyte Esterase Urine Negative Negative RBC Urine 11-20 0-2 /HPF WBC Urine 0-5 0-5 /HPF Squamous Epithelial Cell Urine 3-5 0-2 /HPF Bacteria Urine None Seen None Seen Hyaline Casts Urine 0-2 0-2 /LPF Urinalysis and Microscopic Reviewed date:04/02/2025 04:32:10 PM Interpretation: Performing Lab:[facility], [address] [place] [phone] Notes/Report: Color Urine Dark Yellow Appearance Urine Clear PH 5.0 5.0-9.0 Glucose Urine UA Negative Negative mg/dL Urine Blood Negative Negative Specific Huntly - Urine >= 1.030 1.005-1.025 Urine Protein [...] ff Reviewed date:12/25/2024 04:59:50 PM Interpretation: Performing Lab:[facility], [address] [place] [phone] Notes/Report: White Blood Count 8.9 4.8-10.8 X10*3/uL [...] 0.0-0.2 /100WBC Neutrophils Absolute Auto 7.1 2.0-8.3 x10*3/uL Imm Gran Abs Auto 0.10 0.00-0.03 X10*3/uL Lymphocytes Absolute Auto 1.2 1.2-4.9 X10*3/uL Monocytes Absolute Auto 0.3 0.1-1.2 X10*3/uL Eosinophils Absolute Auto 0.1 0.0-0.4 X10*3/uL Basophils Absolute Auto 0.1 0.0-0.2 X10*3/uL NRBC Abs Auto 0.000 0.0-0.012 X10*3/uL Complete Blood Count Auto Di ff Reviewed date:02/24/2025 06:32:02 PM Interpretation: Performing Lab:[facility], [address] [place] [phone] Notes/Report: White Blood Count 7.7 4.8-10.8 X10*3/uL [...] 0.0-0.2 /100WBC Neutrophils Absolute Auto 4.6 2.0-8.3 x10*3/uL Imm Gran Abs Auto 0.05 0.00-0.03 X10*3/uL Lymphocytes Absolute Auto 2.0 1.2-4.9 X10*3/uL Monocytes Absolute Auto 0.6 0.1-1.2 X10*3/uL Eosinophils Absolute Auto 0.4 0.0-0.4 X10*3/uL Basophils Absolute Auto 0.0 0.0-0.2 X10*3/uL NRBC Abs Auto 0.000 0.0-0.012 X10*3/uL Erythrocyte Sedimentation Ra te Reviewed date:02/24/2025 06:31:37 PM Interpretation: Performing Lab:[facility], [address] [place] [phone] Notes/Report: Erythrocyte Sedimentation Rate 2 0-20 MM/HR Patients with polycythemia and many hemoglobin abnormalities may have depressed sed rates whereas patients with anemia may have elevated sed rates. Comprehensive [place]. Panel Fa st Reviewed date:02/25/2025 12:32:54 PM Interpretation: Performing Lab:[facility], [address] [place] [phone] Notes/Report: Sodium 141 135-145 mmol/L Potassium 4.1 [...] T4 Reviewed date:02/25/2025 12:33:04 PM Interpretation: Performing Lab:[facility], [address] [place] [phone] Notes/Report: TSH reflex Free T4 1.95 0.32-4.0 uIU/mL Lay Siddiqui Reviewed date:02/24/2025 06:25:17 PM Interpretation: Performing Lab:[facility], [address] [place] [phone] Notes/Report: Lay Siddqiui See Note Specimen held untested for 24 hours; Call to request Chemistry testing. Pathology Reviewed date:04/02/2025 07:10:16 AM Interpretation:04-02-25 Performing Lab:[address] [address] Notes/Report: ------ Name: Tg Stratton Age/Sex: 70/F [facility] 1955 [id number] [id number] Attend Dr: Nabila Velázquez [facility] Re02/25/25 Status : DEP REF Location: [facility] Disch: ------ SPEC : [id number] RECD : 02/26/25 STATUS: LIANG SANTACRUZ NUM: [id number] [place]: 02/25/[address]: Nabila Velázquez [facility] ENTERED: 02/26/25-12 11 SP TYPE: Cytology OTHR DR: Valerio Khanna MD ORDERED: Cyto-enhanced Diagnosis Urine: Negative for high-grade urothelial carcinoma. See comment. COMMENT: Cellular sp ecimen consisting of a few groups of urothelial cells, which are small/medium in size and have variable chromatin. The background has occasional single urothelial cells wit hout atypia, squamous cells, lymphocytes and red blood cells. The differential diagnos is for these types of groups of urothelial cells includes infection, trauma (e.g. stones) and other types of urothelial neoplasms. Clinical History other microscopic hematuria Material Received Urine Gross Description Received is 22 cc of very cloudy yellow fluid from which a ThinPrep slide is prepared. Copies To: Valerio Khanna MD [facility] [address] [place] [address] [address] [place] [address] Nabila Velázquez [facility] [address] [place] [address] [address] [place], [place] [id number] [email or web address] ------ Signed (signature on file) Kevin Xiong MD 02/27/25 0756 ------ END OF REPORT Blood Urea Nitrogen Reviewed date:05/06/2025 06:25:37 PM Interpretation: Performing Lab:[facility], [address] [place] [phone] Notes/Report: Blood Urea Nitrogen 22 9-16 mg/dL Creatinine Reviewed date:05/06/2025 06:22:28 PM Interpretation: Performing Lab:[facility], [address] [place] [phone] Notes/Report: Creatinine 0.84 0.5-1.4 mg/dL Estimated Glomerular Filt Rate > 60 Chronic Kidney Disease: Estimated GFR < 60 mL/min/1.73m2 Severe Kidney Disease: Estimated GFR < 15 mL/min/1.73m2 CT urogram Reviewed date:05/11/2025 03:18:14 PM Interpretation: Performing Lab: Notes/Report: [address] [place] [address] CT Scan Report Signed Patient: Tg Stratton MR#: [id number] : 1955 Acct:[id number] Age/Sex: 70 / F ADM Date: 05/11/25 Loc: HO.CT Attending Dr: Nabila Velázquez [facility] Ordering Physician: Nabila Velázquez Date of Service: 05/11/25 Procedure(s): CT urogram Accession Number(s): [id number] cc: Valerio Khanna MD; Nabila Velázquez Report Number: [id number]: Total DLP = 819.00 mGy-cm EXAMINATION: CT ABDOMEN PELVIS UROGRAPHY WITHOUT THEN WITH IV CONTRAST HISTORY: Z87.891 - Personal history of nicotine dependence COMPARISON: There are no prior studies available for comparison. TECHNIQUE: CT scan of the abdomen and pelvis was performed before and after the intravenous administration of 85 mL Omnipaque 350. Postcontrast images were obtained using a split bolus technique. Coronal and sagittal reformatted images were generated and reviewed. Oral contrast material was not administered per department protocol. This CT exam was performed with one or more of the following dose reduction techniques: automated exposure control, adjustment of the mA and/or kV according to patient size, use of iterative reconstruction technique. DLP: 819 mGy-cm ABDOMEN: LOWER CHEST: The visualized lung bases are clear. There is no pleural effusion. CARDIOVASCULATURE: The heart is normal in size. There is no pericardial effusion. LIVER: The liver is normal in size and contour. No liver mass is identified. The hepatic and portal veins are patent. GALLBLADDER / BILE DUCTS: The gallbladder is unremarkable. There is no intra or extrahepatic biliary ductal dilatation. SPLEEN: The spleen is normal in size. No focal splenic lesion is identified. PANCREAS: The pancreas is unremarkable in appearance. ADRENAL GLANDS: The right adrenal gland is unremarkable. There is a 1.2 cm left adrenal nodule which measures 10.5 HU in density on the unenhanced examination, and likely represents an adenoma. KIDNEYS/RETROPERITONEUM: There is a punctate nonobstructing calculus in an interpolar calyx of the right kidney. No left renal calculi are identified. There is no hydronephrosis or hydroureter. There is a 1.7 cm cyst at the lower pole of the left kidney. Multiple additional smaller probable cysts are also noted in both kidneys. LYMPH NODES: No abdominal or pelvic lymphadenopathy. VASCULATURE: The abdominal aorta demonstrates atherosclerotic calcification, but is normal in caliber. MESENTERY/PERITONEUM: No free fluid. No masses. There is no free intraperitoneal gas. STOMACH: There is a small hiatal hernia. The remainder of the stomach is collapsed. SMALL BOWEL: The small bowel is normal in caliber. COLON: There is diverticulosis of the descending and sigmoid colon, without evidence of diverticulitis. APPENDIX: Normal. URINARY BLADDER/PELVIC ORGANS: The urinary bladder is nondistended, limiting evaluation. There is low-density centrally within the uterus. BONES / SOFT TISSUES: There is degenerative disc disease of the spine. CT/CT urogram IMPRESSION: 1. Punctate nonobstructing right renal calculus. Otherwise unremarkable CT urogram. 2. 1.2 cm left adrenal nodule which likely represents an adenoma. 3. Small hiatal hernia. Diverticulosis of the descending and sigmoid colon, without evidence of diverticulitis 4. Low density centrally within the uterus. Ultrasound evaluation is suggested. Electronically signed by: Mikael Helms MD 05/11/2025 11:00 AM EDT RP Dictated By: Mikael Helms MD Signed By: <Electronically signed by Mikael Helms MD in OV> 05/11/25 1100 DD/ 2 TD/TT: 05/11/25 0959 [employer] Launch Commander: [place] [address] CT Scan Report Signed Patient: Patito Stratton MR#: [id number] : 1955 Acct:[id number] Age/Sex: 70 / F ADM Date: 05/11/25 Loc: .CT Attending Dr: Nabila carrasco [facility] Ordering Physician: Nabila VelázquezSTEVE Date of Service: 05/11/25 Procedure(s): CT urogram Accession Number(s): [id number] cc: Valerio Khanna MD; Nabila Velázquez [facility] Report Number: [id number]: Total DLP = 819.00 mGy-cm EXAMINATION: CT ABDO MEN PELVIS UROGRAPHY WITHOUT THEN WITH IV CONTRAST HISTORY: Z87.891 - Personal history of nicotine dependence COMPARISON: There ar e no prior studies available for comparison. TECHNIQUE: CT scan o f the abdomen and pelvis was performed before and after the intravenou s administration of 85 mL Omnipaque 350. Postcontrast images were obtained using a split bolus technique. Coronal and sagittal reformatted images were generated and reviewed. Oral contrast materi al was not administered per department protocol. This CT exam was per formed with one or more of the following dose reduction techniques : automated exposure control, adjustment of the mA and/or kV according to patient size, use of iterative reconstruction technique. DLP: 819 mGy-cm ABDOMEN: LOWER CHEST: The visualized lung bases are clear. There is no pleural effusion. CARDIOVASCULATURE: T he heart is normal in size. There is no pericardial effusion. LIVER: The liver is normal in size and contour. No liver mass is identified. The hepa tic and portal veins are patent. GALLBLADDER / BILE D UCTS: The gallbladder is unremarkable. There is no intra or extrahepati c biliary ductal dilatation. SPLEEN: The spleen i s normal in size. No focal splenic lesion is identified. PANCREAS: The pancre as is unremarkable in appearance. ADRENAL GLANDS: The right adrenal gland is unremarkable. There is a 1.2 cm left adrenal nodu le which measures 10.5 HU in density on the unenhanced examinati on, and likely represents an adenoma. KIDNEYS/RETROPERITON EUM: There is a punctate nonobstructing calculus in an interpolar calyx of the right kidney. No left renal calculi are identified. There is no hydronephrosis or hydroureter. There is a 1.7 cm cyst at the lower pole of the left kidney. Multiple additional smaller probable cys ts are also noted in both kidneys. LYMPH NODES: No abdo glenis or pelvic lymphadenopathy. VASCULATURE: The abd ominal aorta demonstrates atherosclerotic calcification, but i s normal in caliber. MESENTERY/PERITONEUM : No free fluid. No masses. There is no free intraperitoneal gas. STOMACH: There is a small hiatal hernia. The remainder of the stomach is collapsed. SMALL BOWEL: The sma ll bowel is normal in caliber. COLON: There is diverticulosis of the descending and sigmoid colon, without evidence of diverticulitis. APPENDIX: Normal. URINARY BLADDER/PELV IC ORGANS: The urinary bladder is nondistended, limiting evaluation. There is low-density centrally within the uterus. BONES / SOFT TISSUES : There is degenerative disc disease of the spine. _ C T/CT urogram IMPRESSION: 1. Punctate nonobstr ucting right renal calculus. Otherwise unremarkable CT urogram. 2. 1.2 cm left adren al nodule which likely represents an adenoma. 3. Small hiatal yesi ia. Diverticulosis of the descending and sigmoid colon, without evide nce of diverticulitis 4. Low density centr ally within the uterus. Ultrasound evaluation is suggested. Electronically antonino d by: Mikael Helms MD 05/11/2025 11:00 AM EDT RP Dictated By: Mikael Helms MD Signed By: <Brian tabares signed by Mikael Helms MD in OV> 05/11/25 1100 DD/ 2 TD/TT: 05/11/2559 [employer] Launch Commander: Pathology Reviewed date:06/01/2025 12:30:43 PM Interpretation: Performing Lab:[facility], [address] [place] [phone] Notes/Report: ------ Name: Tg Stratton Age/Sex: 70/F : 1955 Unit#: [id number] Attend Dr: Nabila Velázquez Re05/27/25 Status : DEP REF Location: [facility] Disch: ------ SPEC : [id number] RECD : 05/29/25-1339 STATUS: LIANG SANTACRUZ NUM: [id number] [place]: 05/27/25-[address] [facility] DR: Nabila Velázquez ENTERED: 05/29/25-13 47 SP TYPE: Cytology OTHR DR: Valerio Khanna MD ORDERED: Cyto-enhanced Diagnosis Urine: Atypical urot helial cells. See comment. COMMENT: Cellular sp ecimen consisting of a rare small group of atypical urothelial cells, which are small/medi um in size, have increased nuclear:cytoplasmic ratio and variable dark chromatin. The background has single urothelial cells with degenerative changes, squamous cells, mixe d inflammatory cells and red blood cells. Clinical History Microscopic hematuria Material Received Urine Gross Description Received is 15 cc of clear yellow-brown fluid from which a ThinPrep slide is prepared. IHC S/NG Disclaimer NOTE: Unless otherwi se stated, all tissue is formalin-fixed and paraffin-embedded. Some or all of the immunohistochemical tests reported herein may have been developed and their performance characteristics determined by [facility]. They have not been cleared or appr kimberly by the U.S. Food and Drug Administration (FDA). However, the FDA has determined that such clearance or approval is not necessary. This laboratory is certified under the Clinical Laboratory Improvement Amendments of 1988 (CLIA) as qualified to perform high comp lexity clinical laboratory testing. Copies To: Valerio Khanna MD [facility] [address] [place] [address] [address] [place], [place] [phone] Nabila Velázquez [facility] [address] [place] [address]. [address] [place] [address] [email or web address] CONTINUED ON NEXT PAGE ------ Name: Tg Stratton Age/Sex: 70/F : 1955 Unit#: [id number] Attend Dr: Nabila Velázquez [facility] Re05/27/25 Status : DEP REF Location: [facility] Disch: ------ SPEC : [id number] RECD : 05/29/25 STATUS: LIANG SANTACRUZ NUM: [id number] [place]: 05/27/[address] [facility] [address]: Nabila Velázquez [facility]- ENTERED: 05/29/25 47 SP TYPE: Cytology OTHR DR: Valerio Khanna MD ORDERED: Cyto-enhanced ------ Signed (signature on file) Kevin Xiong MD 06/01/25 1000 ------ END OF REPORT Pathology Reviewed date:06/10/2025 08:25:01 PM Interpretation: Performing Lab:[facility], [address] [place] [phone] Notes/Report: ------ Name: Tg Stratton Age/Sex: 70/F [facility] 1955 [id number]#: [id number] Attend Dr: Nabila Velázquez [facility] Re06/09/25 Status : [facility] Disch: ------ SPEC : [id number] RECD : 06/10/25 STATUS: LIANG SANTACRUZ NUM: [id number] [place]: 06/09/25-[address] [facility] [address]: Nabila Velázquez [facility] ENTERED: 06/10/25 19 SP TYPE: Cytology OTHR DR: Valerio Khanna MD ORDERED: Cyto-enhanced Diagnosis Urine: Negative for high-grade urothelial carcinoma. Comment: Examination of a monolayer preparation slide shows many benign squamous cells, scattered benign urothelial cells, occasional red blood cells, and few inflammatory cells. Clinical History Other microscopic hematuria Material Received Urine Gross Description Received is 23 cc of cloudy orange fluid from which a ThinPrep slide is prepared. IHC S/NG Disclaimer NOTE: Unless otherwi se stated, all tissue is formalin-fixed and paraffin-embedded. Some or all of the immunohistochemical tests reported herein may have been developed and their performance characteristics determined by [facility]. They have not been cleared or appr kimberly by the U.S. Food and Drug Administration (FDA). However, the FDA has determined that such clearance or approval is not necessary. This laboratory is certified under the Clinical Laboratory Improvement Amendments of 1988 (CLIA) as qualified to perform high comp lexity clinical laboratory testing. Copies To: Valerio Khanna MD [facility] [address] [place] [address] [address] [place] [phone] Nabila Velázquez [facility] [address] [place] [address] [address] [place] [id number] [email or web address] CONTINUED ON NEXT PAGE ------ Name: Tg Stratton Age/Sex: 70/F : 1955 Unit#: [id number] Attend Dr: Nabila Velázquez [facility] Re06/09/25 Status : DEP REF Location: [facility] Disch: ------ SPEC : [id number] RECD : 06/10/25-849 STATUS: LIANG SANTACRUZ NUM: [id number] [place]: 06/09/25-[address] [facility] [address]: Nabila Velázquez [facility] ENTERED: 06/10/25- 19 SP TYPE: Cytology OTHR DR: Valerio Khanna MD ORDERED: Cyto-enhanced ------ Signed (signature on file) Sunita Amber 06/10/25 1448 ------ END OF REPORT US pelvic and transvaginal Reviewed date:07/28/2025 06:14:12 PM Interpretation: Performing Lab: Notes/Report: [address] [address] Ultrasound Report Signed with Josefina Patient: Tg Stratton MR#: [id number] : 1955 Acct:[id number] Age/Sex: 70 / F ADM Date: 07/27/25 Loc: HO.US Attending Dr: Valerio Khanna MD Ordering Physician: Valerio Khanna MD Date of Service: 07/27/25 Procedure(s): US pelvic and transvaginal Accession Number(s): [id number] cc: Valerio Khanna MD Reason for Exam: abnormal C.T. (low density centrally on uterus), US recommended ADDENDUM This document has been electronically signed by: Cindy Cox MD on 07/28/2025 13:47:15 ADDENDUM: Receipt of this report by the clinical staff was confirmed with Christen Dela Cruz [employer] on Jul 28, 2025 14:17:00 EDT. This document has been electronically signed by: Laurel Castro on 07/28/2025 14:19:13 Addendum Dictated By: Cindy Cox MD Addendum Signed By: <Electronically signed by Cindy Cox MD in OV> 07/28/251418 Addendum Cosigned By: DD/ TD/TT: 07/28/25 CLINICAL HISTORY: abnormal C.T. (low density centrally on uterus), US recommended Ultrasound of the female pelvis Comparison: CT/SR - CT ABDOMEN PELVIS UROGRAPHY WITHOUT THEN WITH IV CONTRAST - 05/11/25 09:23 EDT Technique: Grayscale ultrasound with assistance of color Doppler. Transabdominal scanning performed for overall anatomy. Transvaginal scanning performed for better anatomic delineation. Findings: Anteverted atrophic uterus measures 6.2 x 2.0 x 4.3 cm, homogeneous myometrium, no fibroid is visualized. The endometrium is abnormal, 9 mm in thickness, heterogeneous with lobulated isoechoic components and anechoic cystic foci, on cine images, there is some motion associated with the isoechoic component, suggestive of complex fluid, color Doppler demonstrates no abnormal vascular flow. Unremarkable cervix. Bilateral ovaries are normal for the age, right ovary measures 2.0 x 1.0 x 1.9 cm, left ovary 1.8 x 1.4 x 0.9 cm, no suspicious ovarian lesion or abnormal vascular flow. No free fluid. Impression: Abnormal thick endometrium contains complex fluid, mass is difficult to exclude, recommend considering further evaluation by hysteroscopy and tissue sampling if needed. This document has been electronically signed by: Cindy Cox MD on 07/28/2025 13:47:15 Dictated By: Cindy Cox MD Signed By: <Electronically signed by Cindy Cox MD in OV> 07/28/25 1348 DD/ 1347 TD/TT: 07/28/25 1347 [employer] Launch Commander: [place] [address] Ultrasound Report Signed with Addenda Patient: Patito Stratton MR#: [id number] : 1955 Acct:[id number] Age/Sex: 70 / F ADM Date: 07/27/25 Loc: HO.US Attending Dr: Valerio Khanna MD Ordering Physician: Valerio Khanna MD Date of Service: 07/27/25 Procedure(s): US pel brenda and transvaginal Accession Number(s): [id number] cc: Valerio Khanna MD Reason for Exam: abn ormal C.T. (low density centrally on uterus), US recommended ADDENDUM This document has be en electronically signed by: Cindy Cox MD on 07/28/2025 13:47:15 ADDENDUM: Receipt of this repo rt by the clinical staff was confirmed with Christen Dela Cruz, Office Manag er on Jul 28, 2025 14:17:00 EDT. This document has be en electronically signed by: Laurel Castro on 07/28/2025 14:19:13 Addendum Dictated By : Cindy Cox MD Addendum Signed By: <Electronically signed by Cindy Cox MD in OV> 07/28/25 141 Addendum Cosigned By: DD/ TD/TT: 07/28/25 CLINICAL HISTORY: ab normal C.T. (low density centrally on uterus), US recommended Ultrasound of the fe male pelvis Comparison: CT/SR - CT ABDOMEN PELVIS UROGRAPHY WITHOUT THEN WITH IV CONTRAST - 05/11/25 09 :23 EDT Technique: Grayscale ultrasound with assistance of color Doppler. Transabdominal scann ing performed for overall anatomy. Transvaginal scanning performed f or better anatomic delineation. Findings: Anteverted atrophic uterus measures 6.2 x 2.0 x 4.3 cm, homogeneous myometrium, no fibro id is visualized. The endometrium is abnormal, 9 mm in thickness, heterogeneous with lobulated isoechoic components and anechoic cystic foci, on cine images, there is some motion associated with the isoechoic component, suggestive of complex fluid, co praveen Doppler demonstrates no abnormal vascular flow. Unremarkable cervix. Bilateral ovaries ar e normal for the age, right ovary measures 2.0 x 1.0 x 1.9 cm, left ovary 1 .8 x 1.4 x 0.9 cm, no suspicious ovarian lesion or abnormal vascular flow. No free fluid. Impression: Abnormal thick endom etrium contains complex fluid, mass is difficult to exclude, recommend considering further evaluation by hysteroscopy and tissue sampling if needed. This document has be en electronically signed by: Cindy Cox MD on 07/28/2025 13:47:15 Dictated By: Cindy Cox MD Signed By: <Electron ically signed by Cindy Cox MD in OV> 07/28/25 1348 DD/ 46 TD/TT: 09/23/25 1347 [employer] Launch Commander: Reason For Referral Reason please eval and sasha t Diagnosis 1 Microscopic hematuri a (R31.29) Referral Organization Valerio Khanna MD Referring Provider First Name Valerio Referring Provider Last Name Clemencia Referring Provider Speciality Internal edicine Referred Provider Marques Patterson Referred Provider Specialty Urology General Notes Kellie Mims 0 01/02/2025 09:41:17 AM >info faxedPrasanna Annette 01/05/2025 11:50:04 AM >in referral request sent to DanicaPrasanna Annette 01/08/2025 02:45:29 PM >referral info mailed Referral Priority Routine Referral Appointment Date 02/25/2025 Reason please mayank rebolledo Diagnosis 1 Abnormal CAT scan (R 93.89) Referral Organization Valerio Khanna MD Referring Provider First Name Valerio Referring Provider Last Name Clemencia Referring Provider Speciality Internal edicine Referred Provider ADITI MELTON Referred Provider Specialty OB - Gynecol ogy General Notes Kellie Mims 0 07/30/2025 09:13:29 AM > referral info faxedPrasanna Annette 08/11/2025 03:41:21 PM > was told appt is being worked on, Kellie Mims 08/14/2025 09:54:03 AM >referral info mailed to patient Referral Priority Routine Referral Appointment Date 08/26/2025 Medications Medication SIG (Take, Route, Frequency, Duration) [...] BY MOUTH EVERY DAY for 90 Active Levothyroxine Sodium 112 MCG TAKE 1 TABLET BY MOUTH EVERY DAY IN THE MORNING ON EMPTY STOMACH FOR 90 DAYS for 90 Active Valsartan 80 MG 1 tablet Orally Once a day for 30 days 01/23/2025 Active Zepbound 2.5 MG/0.5ML 0.5 mL Subcutaneou s once 2.5 mg once a week for 30 days 06/22/2025 Active Immunizations Vaccine Route Administration Date Status Ingrid díaz Fluarix Quadrivalent IM Intramuscular 09/05/2019 Adminnikita richter pt was given the vaccine at a [facility] in [facility]. PPSV23 (Pnemovax) IM Intramuscular 05/24/2020 Administered [...] Status Risk Notes Problem Carpal tunnel syndrome (87997266) Carpal tunnel syndrome (G56.00) Active confirmed Problem Anxiety (91859344) Anxiety (F41.9) Active confi rmed Problem 76191374 Polymyalgia rheumatica (M35.3) Active confirmed Problem Essential hypertension (51073893) Essential hypertension (I10) Active confirmed Problem 840402475 Acquired hypothyroidism (E03.9) Active confirmed Problem Hyperthyroidism (01094437) Hyperthyroidism (E05.90) Active confirmed Problem Labile essential hypertension (086326059) Labile hypertension (I10) Active confirmed Problem 761103847 History of pneumonia (Z87.01) Active confirmed Problem Non-toxic single thyroid nodule (712466183) Left thyroid nodule (E04.1) Active confirmed Problem Computed tomography result abnormal (455195969) Abnormal CAT scan (R93.89) Active confirmed Problem Non-toxic multinodular goiter (65250813) Multinodular goiter (nontoxic) (E04.2) Active confirmed Vital Signs Blood pressure diastolic 70 mm Hg 06/22/2025 Height 64.50 in 06/22/2025 Blood pressure systolic 120 mm Hg 06/22/2025 Weight 178 lbs 06/22/2025 BMI 30.08 kg/m2 06/22/2025 Encounters Encounter Location Date Provider Diagnosis Valerio Khanna MD [address] [place] [address] [id number] 12/16/2024 Valerio Khanna Blood tests for rout ine general physical examination Z00.00 ; Hyperthyroidism E05.90 and Labile hypertension I10 Valerio Khanna MD [address] [place] [address] [id number] 04/02/2025 Valerio Khanna Hematuria, unspecifi ed type R31.9 Valerio Khanna MD [address] [place] [address] [id number] 12/25/2024 Valerio Khanna Acquired hypothyroid ism E03.9 ; Lethargy R53.83 ; Leg weakness, bilateral R29.898 ; Microscopic hematuria R31.29 and Polycythemia D75.1 Valerio Khanna MD [address] [place] [address] [id number] 01/23/2025 Valerio Khanna Essential hypertensi on I10 ; Anxiety F41.9 and Spinal stenosis M48.00 Valerio Khanna MD [address] [place] [address] [id number] 02/24/2025 Valerio Khanna Hyperthyroidism E05. 90 and Myalgia M79.10 Valerio Khanna MD [address] [place] [address] [id number] 03/17/2025 Valerio Khanna Arthralgia M25.50 Valerio Khanna MD [address] [place] [address] [id number] 06/22/2025 Valerio Khanna Carpal tunnel syndro me G56.00 and Weight gain R63.5 Valerio Khanna MD [address] [place] [address] [id number] 02/19/2025 Valerio Khanna Essential hypertensi on I10 Valerio Khanna MD [address] [place] [address] [id number] 03/02/2025 Valerio Khanna MD [address] [place] [address] [id number] 06/01/2025 Valerio Khanna Abnormal CAT scan R93.89 Valerio Khanna MD [address] [place] [address] [id number] 07/28/2025 Valerio Khanna Assessments Encounter Date Diagnosis (ICD Code) Assessment Notes Treatment Notes Treatment Clinical Notes Section Notes 12/16/2024 Blood tests for routine general physical examination (ICD-10 - Z00.00) 04/02/2025 Hematuria, unspecified type (ICD-10 - R31.9) 12/25/2024 Acquired hypothyroidism (ICD-10 - E03.9) good tsh 12/25/2024 Lethargy (ICD-10 - R53.83) 01/23/2025 Essential hypertension (ICD-10 - I10) will start meds, patient verbalized understanding of medication and directions for use 01/23/2025 Anxiety (ICD-10 - F41.9) will try some citalopram, and will monitor 02/24/2025 Hyperthyroidism (ICD-10 - E05.90) will recheck the thyroid as possible that is involved in her weakness 02/24/2025 Myalgia (ICD-10 - M79.10) am concerned that it may be a neurologic disorder. is continuing to have difficulty on stairs that came on suddenly. nothing on ner spine mri that would explain this.will consider neuro evaluation at next visit 03/17/2025 Arthralgia (ICD-10 - M25.50) finally doing much better. will continue on the ibuprofen and will continue to monitor 06/22/2025 Carpal tunnel syndrome (ICD-10 - G56.00) doesn't want an emg. will try wrist splint. 06/22/2025 Weight gain (ICD-10 - R63.5) patient verbalized understanding of medication and directions for use 02/19/2025 Essential hypertension (ICD-10 - I10) 06/01/2025 Abnormal CAT scan (ICD-10 - R93.89) 12/16/2024 Hyperthyroidism (ICD-10 - E05.90) 12/25/2024 Leg weakness, bilateral (ICD-10 - R29.898) not clear that it is pmr/ did not get much better on prednisone. no temproral artery tenderness 01/23/2025 Spinal stenosis (ICD-10 - M48.00) order faxed to [facility] , pending diagnostic testing 12/16/2024 Labile hypertension (ICD-10 - I10) 12/25/2024 Microscopic hematuria (ICD-10 - R31.29) referral to [place]rology in [place] 12/25/2024 Polycythemia (ICD-10 - D75.1) Plan Of Treatment Pending Test Test Name Order Date Comprehensive [place]. Panel Fast Lipid Panel 12/16/2024 TSH reflex Free T4 12/16/2024 CT lumbar spine wo con 01/23/2025 US thyroid 12/01/2021 US pelvic and transvaginal 06/01/2025 Next Appt Details Provider Name:Valerio Garnica ier, 12/22/2025 07:15:00 AM, [address] [place] [address], [address], [phone], Provider Name:Valerio Garnica ier, 12/28/2025 10:30:00 AM, [address] [place] [address], [place] [address], [place], [place], [phone], Insurance Providers Payer Name Payer Address Payer Phone Subscriber Number Group Number Insured Name Patient Relationship to Insured Coverage Start Date Coverage End Date [facility] [address] NATALIIA Brooks [phone] [id number] Tg [place] Self - patient is the insured Medical (General) History Medical History History ICD Code refuses mammogram cologard 2019 negative refused cologard and colonoscopy refused 2024 hematuria refuses evaluation 2023
--- NOTE | 2025-08-26 08:56 | MHC.OFFVIS ---
Vital Signs 08/26/25 08:58 Height 5 ft 4 in Weight 174 lb BMI 29.9 BP 124/70 Intake Visit Reasons: Abnormal CT scan Refrigeration Brazer/Solderer Required: No Information Interpreted: non-clinical & clinical Credit Assistant: Credit Assistant Present Accompanied by: Self / Same As Patient Allergies nickel Allergy (Intermediate, Verified 08/26/25 08:59) Rash Is last menstrual period known: Yes Last menstrual period: 09/02/20 Post menopausal: Yes Patient : No Do you need a note to return to daycare/school/sports/work: Yes (for surgery on sunday) HPI Comments Details: Presenting referred from Urology regarding abnormal pelvic ultrasound done on 07/28/2025 which showed the following: Anteverted atrophic uterus measures 6.2 x 2.0 x 4.3 cm, homogeneous myometrium, no fibroid is visualized. The endometrium is abnormal, 9 mm in thickness, heterogeneous with lobulated isoechoic components and anechoic cystic foci, on cine images, there is some motion associated with the isoechoic component, suggestive of complex fluid, color Doppler demonstrates no abnormal vascular flow. Unremarkable cervix. Bilateral ovaries are normal for the age, right ovary measures 2.0 x 1.0 x 1.9 cm, left ovary 1.8 x 1.4 x 0.9 cm, no suspicious ovarian lesion or abnormal vascular flow. No free fluid. Impression: Abnormal thick endometrium contains complex fluid, mass is difficult to exclude, recommend considering further evaluation by hysteroscopy and tissue sampling if needed. The patient does not give any history of abnormal vaginal bleeding Last co testing was 50 years No previous screening mammogram PFSH Medical History Toxic multinodular goiter Vitamin D deficiency Multinodular thyroid Hyperthyroidism Surgical History Hx of total thyroidectomy History of foot surgery Hx of cataract surgery Family History Father Diabetes mellitus Mother HTN (hypertension) Breast cancer Maternal Aunt Breast cancer Family/Other Breast cancer Social History Household Members: None Housing: House Alcohol intake: current Alcohol intake frequency: holidays/special occasions only Patient Tobacco Use Status: Former Tobacco user Cigarette Packs Per Day: 2 Years Smoked: 15 Current occupational status: retired Sexual orientation: Straight/Heterosexual Gender identity: Female Female Reproductive History Menstrual Date of last menstrual period: 09/02/20 Total pregnancies: 0 Full term: 2 Review of Systems Card Reports as per HPI and Reports no additional complaints Resp Reports as per HPI and Reports no additional complaints GI Reports as per HPI and Reports no additional complaints Reports as per HPI Physical Exam Vital Signs: Last Vital Signs BP 124/70 08/26/25 08:58 BMI result Body Mass Index 29.9 Const General: cooperative, healthy appearing and comfortable Resp Effort & Inspection: normal respiratory effort Auscultation: clear to auscultation bilaterally Percussion: percussion normal Cardio Palpation: normal PMI Rate: regular rate Rhythm: regular rhythm Heart sounds: no murmurs and no rubs Peripheral pulses: Peripheral pulses 2+ throughout GI Inspection: Yes normal to inspection Palpation (GI): Soft to palpation, nontender, no guarding, not rigid and No hepatosplenomegaly present Percussion: Yes normal to percussion Auscultation: normal bowel sounds Rectal Exam - Female: deferred Assessment & Plan Assessment & Plan (1) Abnormal endometrial ultrasound: Code(s): R93.5 - Abnormal findings on diagnostic imaging of other abdominal regions, including retroperitoneum Category: Medical Plan: Co testing done, screening mammogram ordered Discussed with the patient the finding of fluid in the endometrial cavity, in spite of no vaginal bleeding the concern is the endometrial fluid visualized on ultrasound in case of cervical stenosis might be bleeding into the endometrial cavity and the blood and/or tissue was are unable to pass through the cervical os. Endometrial sampling in postmenopausal bleeding with endometrial fluid is indicated in case endometrial thickness is above 4 mm Recommended to the patient that the next step is an endometrial sampling via hysteroscopy D&C possible polypectomy versus endometrial biopsy to r/o endometrial pathology including hyperplasia or cancer. All the pros and cons risks and benefits of each approach were discussed with the patient, endometrial biopsy being less invasive, office procedure with less sensitivity and inability diagnose a polyp and removal versus hysteroscopy done under anesthesia more invasive more sensitive to endometrial cancer and possibility of diagnosing and endometrial polyp with the possibility of polypectomy. All questions were answered pt verbalized understanding and decided to proceed with endometrial biopsy, attempt for EMB could not be tolerated by the patient, the patient asked about the procedure and proceed with a schedule hysteroscopy D&C possible polypectomy/myomectomy. Discussed with the patient the procedure , all benefits and risks including but not limited to inability to complete the procedure , insufficient endometrial tissue for a complete evaluation of the endometrial cavity , bleeding, infection, possible need for blood transfusion with all its risk ( HIV,syphilis, Hepatitis, anaphylaxis shock, others..), injury to bladder, rectum, possible need for laparoscopy/laparotomy or hysterectomy. The patient verbalized understanding and signed the consent. Instructions given the patient to stay NPO after midnight the day prior to the procedure and not to take any of the medication she is on the morning of the surgical procedure and to schedule a 2 week postoperative appointment Coding Level of Care Code New Pt Level 3 (25393) Diagnoses Abnormal endometrial ultrasound R93.5
[2025-08-26 08:58] VITALS: BP 124/70; BMI 29.9
== END 2025-08-26 09:44 | disposition home or self-care (01) ==
LOC: HO.HWS 08:29
PROVIDERS: PCP Internal Medicine; Visit Provider Obstetrics & Gynecology
DX: R93.5 Abnormal findings on diagnostic imaging of other abdominal regions, including retroperitoneum (principal)
CPT/HCPCS: 99203

== ENCOUNTER 2025-08-26 08:29 | Outpatient (REF) | payer MEDICARE, SELFPAY | END 2025-08-26 08:30 | disposition home or self-care (01) | LOC: HO.LNP 08:29 | PROVIDERS: PCP Internal Medicine; Visit Provider Obstetrics & Gynecology | DX: R93.5 Abnormal findings on diagnostic imaging of other abdominal regions, including retroperitoneum (principal); Z11.51 Encounter for screening for human papillomavirus (HPV) | CPT/HCPCS: 87626; 88175; 99202 ==

== ENCOUNTER 2025-08-28 08:35 | Day surgery (SDC) | payer MEDICARE, SELFPAY ==
--- NOTE | 2025-08-27 08:04 | HO.ANESPROP2 ---
Documented by User: Lindsey Harris NP 08/27/25 08:05 HPI - Anesthesia Eval Consult details Narrative: 70yo F for D&C Hysteroscopy,possible myomectomy,possible polypectomy PMFSH Active Problems Active Problems: All Active Problems Abnormal endometrial ultrasound (Acute) Nephrolithiasis (Acute) History of nicotine dependence (Acute) Microscopic hematuria (Acute) Toxic multinodular goiter (Acute) Vitamin D deficiency (Acute) Multinodular thyroid (Acute) Hyperthyroidism (Acute) Past Medical History Medical History (Updated 08/28/25 @ 08:46 by Shelby Gaines RN) HTN (hypertension) Toxic multinodular goiter Vitamin D deficiency Multinodular thyroid Hyperthyroidism Family History Family History Father Diabetes mellitus Mother HTN (hypertension) Breast cancer Maternal Aunt Breast cancer Family/Other Breast cancer Surgical History Surgical History (Updated 08/28/25 @ 08:47 by Shelby Gaines RN) Hx of total thyroidectomy History of foot surgery Hx of cataract surgery Social History Social History Household Members: None Housing: House Alcohol intake: current Alcohol intake frequency: holidays/special occasions only Patient Tobacco Use Status: Former Tobacco user Cigarette Packs Per Day: 2 Years Smoked: 15 Use of substances other than those prescribed or required for medical reasons: No Are you DNR?: No Advance Directives: No Advance Directives Information Provided: Yes Current occupational status: retired Sexual orientation: Straight/Heterosexual Gender identity: Female Meds Allergies Allergy/AdvReac Type Severity Reaction Status Date / Time nickel Allergy Intermediate Rash Verified 08/28/25 08:47 Home Medications ?Medication ?Instructions ?Recorded ?Confirmed ?Last Taken ?Type escitalopram oxalate 10 mg tablet 10 mg PO DAILY 05/27/25 08/28/25 Unknown History ibuprofen 800 mg tablet 800 mg PO TID 05/27/25 08/28/25 Unknown History levothyroxine 112 mcg tablet 112 mcg PO QAM 05/27/25 08/28/25 Unknown History aspirin 81 mg tablet 81 mg PO DAILY 08/26/25 08/28/25 Unknown History valsartan 80 mg tablet 80 mg PO BEDTIME 08/28/25 08/28/25 Unknown History Assessment and Plan Assessment Anesthesia Assessment: Chart Reviewed Documented by User: Nicolas Morrison MD 08/28/25 10:31 PMF Past Medical History Medical History (Updated 08/28/25 @ 08:46 by Shelby Gaines, RN) HTN (hypertension) Toxic multinodular goiter Vitamin D deficiency Multinodular thyroid Hyperthyroidism Family History Family History Father Diabetes mellitus Mother HTN (hypertension) Breast cancer Maternal Aunt Breast cancer Family/Other Breast cancer Family history of problems with anesthesia: No Surgical History Surgical History (Updated 08/28/25 @ 08:47 by Shelby Gaines RN) Hx of total thyroidectomy History of foot surgery Hx of cataract surgery History of Problems with Anesthesia: No Social History Social History Household Members: None Housing: House Alcohol intake: current Alcohol intake frequency: holidays/special occasions only Patient Tobacco Use Status: Former Tobacco user Cigarette Packs Per Day: 2 Years Smoked: 15 Use of substances other than those prescribed or required for medical reasons: No Are you DNR?: No Advance Directives: No Advance Directives Information Provided: Yes Current occupational status: retired Sexual orientation: Straight/Heterosexual Gender identity: Female Meds Allergies Allergy/AdvReac Type Severity Reaction Status Date / Time nickel Allergy Intermediate Rash Verified 08/28/25 08:47 Home Medications ?Medication ?Instructions ?Recorded ?Confirmed ?Last Taken ?Type escitalopram oxalate 10 mg tablet 10 mg PO DAILY 05/27/25 08/28/25 Unknown History ibuprofen 800 mg tablet 800 mg PO TID 05/27/25 08/28/25 Unknown History levothyroxine 112 mcg tablet 112 mcg PO QAM 05/27/25 08/28/25 Unknown History aspirin 81 mg tablet 81 mg PO DAILY 08/26/25 08/28/25 Unknown History valsartan 80 mg tablet 80 mg PO BEDTIME 08/28/25 08/28/25 Unknown History Exam Exam Date and Time: 08/28/2025 Airway Mallampati Class: II TM Dist: >3cm Neck ROM: Full Heart: rrr Lungs: ctab vesicular Assessment and Plan Assessment Anesthesia Assessment: Anesthesia Plan Discussed Final Anesthetic Review Family History of Problems with Anesthesia: No History of Problems with Anesthesia: No NPO: Yes ASA Class: II Final Preanesthetic Review: No Changes in Pt Med Stat, Meds/Allgs Chart Reviewed, Consent Obtained/Reviewed and Anes Risks/Benef Reviewed Patient Risk: Low Procedure Risk: Low Anesthetic Plan Anesthetic Plan: GA Disposition: Standard PACU
[2025-08-28 08:47] VITALS: BMI 31.0
[2025-08-28 09:01] VITALS: BP 150/70; PULSE 70; RESP 15; TEMP 36.6; O2SAT 97
[2025-08-28] MEDS: Lactated Ringers 1,000 ML 100 ML IVCONT (09:10)
--- NOTE | 2025-08-28 10:04 | MHC.SHP ---
Pre-Procedural Eval Section A - 24 Hr Update-Section A only Date of Service: 08/28/25 The patient is an INPATIENT: No Changes since office visit: No Cold of Flu in the past 2 weeks, No New Medical Problems, No Changes in Medication and No Patient answered all questions The patient has been examined within 24 hours of the surgical procedure. The History & Physical has been completed within 30 days and I have reviewed it.: Yes Section B - Complete if H&P > 30 days Chief Complaint: Abnormal findings on diagnostic imaging of other Allergies: Allergies Allergy/AdvReac Type Severity Reaction Status Date / Time nickel Allergy Intermediate Rash Verified 08/28/25 08:47 Plan Diagnosis/Plan: Unchanged I have reviewed the history and physical and performed a pertinent physical examination on my patient. No changes have occurred unless specified. Time Spent With Patient Time: Total time managing care of this patient today ____ minutes.
[2025-08-28 11:12] VITALS: BP 126/65; PULSE 70; RESP 14; TEMP 36.2; O2SAT 95
--- NOTE | 2025-08-28 11:12 | P.BOP_ITS ---
Brief Operative Note Date of Service: 08/28/25 Pre-op diagnosis: Abnormal endometrium by ultrasound Post-op diagnosis: same (Endometrial polyp) Procedure: Hysteroscopy D&C, Polypectomy Surgeon: Junior Hooper MD Anesthesia: GLMA Was an And Drying Supervisor Cooking Casing used for this Procedure?: No Estimated blood loss (mL): 0 Pathology: other (Endometrial Scrapping. Polyp) Condition: stable Disposition: PACU
--- NOTE | 2025-08-28 11:12 | W.PM.OPN ---
Operative Note Operative Note Date of Service: 08/28/25 Narrative: Preop Diagnosis: Endometrial endometrium by US Operation: Diagnostic Hysteroscopy, Dilataion & Curettage and polypectomy Post Op Diagnosis: Endometrial Polyp QBL: Minimal Anesthesia: GLMA Surgeon: Junior Hooper MD Local Company Refrigerated Truck Driver: None Complication: None Pathology: Endometrial Scrapings, Endometrial polyp Procedure: The patient was put in the dorsal lithotomy position, scrubbed, and draped in the usual manner. A sterile speculum was inserted in the patient's vagina. The anterior lip of the cervix was grasped with a single tooth tenaculum. The cervix was dilated up to 5 mm, then the scope was inserted in the patient's uterus. Inspection revealed endometrial polyp. The Myosure Reach device was used; it was introduced through the operative channel and polypectomy done with no complications. The scope was then taken out from the uterine cavity, sharp curettings was carried on with minimal to moderate amount of tissues retrieved. At the end of the procedure, all instruments were taken out of the patient uterine and vaginal cavity. The single tooth tenaculum was removed and homeostasis was assured using pressure,. The patient tolerated the procedure well and was transferred to the PACU in a stable condition.
[2025-08-28 11:17] VITALS: BP 136/65; PULSE 64; RESP 14; O2SAT 96
[2025-08-28 11:22] VITALS: BP 129/64; PULSE 63; RESP 14; O2SAT 95
[2025-08-28 11:27] VITALS: BP 134/67; PULSE 63; RESP 14; TEMP 36.4; O2SAT 95
== END 2025-08-28 12:10 | disposition home or self-care (01) ==
PROVIDERS: PCP Internal Medicine; Visit Provider Obstetrics & Gynecology
PROC: 0UDB8ZZ Extraction of Endometrium, Via Natural or Artificial Opening Endoscopic (ICD-10-PCS; CPT 58558; principal; 2025-08-28 12:00)
DX: N84.1 Polyp of cervix uteri (principal); I10 Essential (primary) hypertension; E05.20 Thyrotoxicosis with toxic multinodular goiter without thyrotoxic crisis or storm; E89.0 Postprocedural hypothyroidism; E55.9 Vitamin D deficiency, unspecified; Z98.890 Other specified postprocedural states; Z79.1 Long term (current) use of non-steroidal anti-inflammatories (NSAID); Z79.82 Long term (current) use of aspirin; Z79.899 Other long term (current) drug therapy; Z87.891 Personal history of nicotine dependence
CPT/HCPCS: 58558; 88305; J0131; J1100; J2003; J2371; J2405; J2704; J3010

== ENCOUNTER → 2025-08-28 08:35 | Outpatient (BNV) | payer MEDICARE, SELFPAY | PROVIDERS: PCP Internal Medicine; Visit Provider Obstetrics & Gynecology | DX: N84.0 Polyp of corpus uteri (principal) | CPT/HCPCS: 58558 ==

== ENCOUNTER 2025-09-10 11:05 | Outpatient (AMB) | payer MEDICARE, SELFPAY ==
--- OUTSIDE RECORDS SUMMARY | 2025-02-19 09:03 | XMS_ITS ---
Author Organization Valerio Khanna MD Address [address] [facility] [address] [facility] [place] [phone] Care Team Providers Care Salesperson Wigs Name Role Phone GrazynaSarah carolinan Primary Care Provider REASON FOR VISIT refill Medications Medication SIG (Take, Route, Fr equency, Duration) Notes Start Date End Date Status Valsartan 80 MG 1 tablet Orally Once a day for 30 days 01/23/2025 Active Encounters Encounter Location Date Provider Diagnosis Valerio Khanna MD [address] [place] [id number] 02/19/2025 Valerio Khanna Essential hypertension I10 Assessments Encounter Date Diagnosis (ICD Code) Assessment Notes Treatment Notes Treatment Clinical Notes Section Notes 02/19/2025 Essential hypertension (ICD-10 - I10) Plan Of Treatment Medication Medication Name Sig Start Date Stop Date Notes Valsartan 80 MG 1 tablet Orally Once a day for 30 days Next Appt Details Provider Name:Valerio cassidy, 12/22/2025 07:15:00 AM, [address] [facility], [address] [place] [address], [phone], Provider Name:Valerio cassidy, 12/28/2025 10:30:00 AM, [address] [place] [address], [address] [place] [address], [phone], Progress Notes * Roger STRATTON:1955 (70 yo F)Acc No.[id number]:02/19/2025 Patient: Tg ELAM :1955 A ge:70 Y S ex:Female Address:[address] [place] [address], [address] * Refills Refill Valsartan Tablet, 80 MG, Orally, 30, 1 tablet, Once a day, 30 days, Refills=11 * true * Date: Generated for Gianni mendez/Kimberly/Chavaitting on: 11/10/2024 01:40 PM EST
--- OUTSIDE RECORDS SUMMARY | 2025-02-24 05:15 | XMS_ITS ---
Author Organization Valerio Khanna MD Address [address] [place], [place] [id number] Care Team Providers Care Rigger Name Role Phone Clemencia Valerio Primary Care Provider [phone] Allergies No Known Allergies Results Component Value Reference Range Notes Complete Blood Count Auto Di ff Reviewed date:02/24/2025 06:32:02 PM Interpretation: Performing Lab:[facility], [address] [place] [phone] Notes/Report: White Blood Count 7.7 4.8-10.8 X10*3/uL Red Blood Count 5.46 4.20-5.50 X10*6/uL Hemoglobin 16.6 12.0-16.0 g/dl Hematocrit 48.3 37.0-47.0 % Mean Corpuscular Volume 88.5 80.0-98.0 fL Mean Corpuscular Hemoglobin 30.4 27.0-33.0 pg Mean Corpuscular HGB Conc 34.4 31.0-35.0 g/dl Red Cell Distribution Width 12.5 11.0-16.0 % Platelet Count 234 160-400 X10*3/uL Mean Platelet Volume 10.2 9.4-12.3 fL Neutrophils Percent Auto 60.0 45-73 % Imm Gran Pct Auto 0.6 0.0-0.4 % Lymphocytes Percent Auto 25.6 20-40 % Monocytes Percent Auto 8.3 2-11 % Eosinophils Percent Auto 5.0 0-4 % Basophils Percent Auto 0.5 0-2 % NRBC Pct Auto 0.0 0.0-0.2 /100WBC Neutrophils Absolute Auto 4.6 2.0-8.3 x10*3/u L Imm Gran Abs Auto 0.05 0.00-0.03 X10*3/uL Lymphocytes Absolute Auto 2.0 1.2-4.9 X10*3/u L Monocytes Absolute Auto 0.6 0.1-1.2 X10*3/uL Eosinophils Absolute Auto 0.4 0.0-0.4 X10*3/u L Basophils Absolute Auto 0.0 0.0-0.2 X10*3/uL NRBC Abs Auto 0.000 0.0-0.012 X10*3/uL Erythrocyte Sedimentation Ra te Reviewed date:02/24/2025 06:31:37 PM Interpretation: Performing Lab:[facility], [address] [place] [phone] Notes/Report: Erythrocyte Sedimentation Rate 2 0-20 MM/HR Patients with polycythemia and many hemoglobin abnormalities may have depressed sed rates whereas patients with anemia may have elevated sed rates. Comprehensive [place]. Panel Fa st Reviewed date:02/25/2025 12:32:54 PM Interpretation: Performing Lab:[facility], [address] [place] [phone] Notes/Report: Sodium 141 135-145 mmol/L Potassium 4.1 3.3-5.1 mmol/L Chloride 110 96-108 mmol/L Carbon Dioxide 22 22-29 mmol/L Anion Gap 13 12-20 Blood Urea Nitrogen 20 9-16 mg/dL Creatinine 0.74 0.5-1.4 mg/dL Estimated Glomerular Filt Rate > 60 Chronic Kidney Disease: Estimated GFR < 60 mL/min/1.73m2 Severe Kidney Disease: Estimated GFR < 15 mL/min/1.73m2 Glucose Fasting 81 60-99 mg/dL Calcium 9.3 8.4-10.2 mg/dL Bilirubin Total 0.5 0.0-1.0 mg/dL Aspartate Amino Transferase 26 5-31 U/L Alanine Aminotransferase 40 0-31 U/L Total Protein 7.0 6.5-8.0 g/dL Albumin Level 4.3 3.5-5.0 g/dL Alkaline Phosphatase 62 39-117 U/L TSH reflex Free T4 Reviewed date:02/25/2025 12:33:04 PM Interpretation: Performing Lab:[facility], [address], [place] [phone] Notes/Report: TSH reflex Free T4 1.95 0.32-4.0 uIU/mL REASON FOR VISIT 4 week Medications Medication SIG (Take, Route, Frequency, Duration) Notes Start Date End Date Status Valsartan 80 MG 1 tablet Orally Once a day for 30 days 01/23/2025 Active predniSONE 10 MG 1 tablet Orally Once a day for 30 days 06/26/2024 Not-Taking Ibuprofen 200 MG 1 tablet with food o r milk as needed Orally Three times a day Not-Taking Aspirin 81 81 MG 1 tablet Orally Once a day for 30 day(s) Not-Taking Multi Adult Gummies - as directed Orally 0 Not-Taking Ibuprofen 800 MG 1 tablet with food o r milk as needed Orally every 8 hrs for 30 days 02/24/2025 Active Escitalopram Oxalate 10 MG 1 tablet Oral ly Once a day for 30 days 01/23/2025 Active Levothyroxine Sodium 112 MCG TAKE 1 TABLET BY MOUTH EVERY DAY IN THE MORNING ON EMPTY STOMACH FOR 90 DAYS for 90 Active Vital Signs Blood pressure systolic 122 mm Hg 02/25/20 25 Blood pressure diastolic 68 mm Hg 025 Height 64.50 in 02/24/2025 Weight 178 lbs 02/24/2025 BMI 30.08 kg/m2 02/24/2025 weight is down 10 pounds [facility] emergency department 01-23-25 Encounters Encounter Location Date Provider Diagnosis Valerio Khanna MD [address] [place], [place] [phone] 02/24/2025 Valerio Khanna Hyperthyroidism E05. 90 and Myalgia M79.10 Assessments Encounter Date Diagnosis (ICD Code) Assessment Notes Treatment Notes Treatment Clinical Notes Section Notes 02/24/2025 Hyperthyroidism (ICD-10 - E05.90) will recheck the thyroid as possible that is involved in her weakness 02/24/2025 Myalgia (ICD-10 - M79.10) am concerned that it may be a neurologic disorder. is continuing to have difficulty on stairs that came on suddenly. nothing on ner spine mri that would explain this.will consider neuro evaluation at next visit Plan Of Treatment Medication Medication Name Sig Start Date Stop Date Notes Ibuprofen 800 MG 1 tablet with food o r milk as needed Orally every 8 hrs for 30 days 02/24/2025 Treatment Notes Assessment Notes Hyperthyroidism will recheck the thy roid as possible that is involved in her weakness Myalgia am concerned that it may be a neurologic disorder. is continuing to have difficulty on stairs that came on suddenly. nothing on ner spine mri that would explain this.will consider neuro evaluation at next visit Next Appt Details Follow Up: 3 Weeks, Reason: Provider Name:Valerio Garnica ier, 12/22/2025 07:15:00 AM, [address] [facility], [address], [place], [place], [phone], Provider Name:Valerio Garnica ier, 12/28/2025 10:30:00 AM, [address] [facility], [address], [place], [place], [phone], Progress Notes * Faby STRATTONBashirOB:1955 (70 yo F)Acc No.[id number]:02/24/2025 Progress Notes Patient: Tg ELAM Provider: Qing Khanna MD :1955 A ge:70 Y S ex:Female Date:02/24/2025 Address:[address] [place], [place] [id number] Subjective: * Chief Complaints: * 4 week * HPI: S ymptom(s): patient is 70 yo female here for 4 week follow up visit/ pain is increasing in lower legs. back of legs feel stretched/ pain alos in upper arms and lower back pain. gets severe pain in getting out of chair or out suv. * ROS: G eneral/Constitutional: Denies C hills. D enies F atigue. D enies F ever. D enies H eadache. E NT: Denies S ore throat. R espiratory: Denies C ough. D enies S hortness of breath at rest. D enies S hortness of breath with exertion. C ardiovascular: Denies C hest pain at rest. D enies C hest pain with exertion. A dmits D izziness. D enies P alpitations. D enies S hortness of breath. G astrointestinal: Denies D iarrhea. D enies N ausea. * Medical History: * Surgical History: * Hospitalization/Major Diagno stic Procedure: * Medications: T akingEscitalopram Oxalate 10 MG Tablet 1 tablet Orally Once a day Levothyroxine Sodium 112 MCG Tablet TAKE 1 TABLET BY MOUTH EVERY DAY IN THE MORNING ON EMPTY STOMACH FOR 90 DAYS Valsartan 80 MG Tablet 1 tablet Orally Once a day Taking Escitalopram Oxalate 10 MG Tablet 1 tablet Orally Once a day Taking Levothyroxine Sodium 112 MCG Tablet TAKE 1 TABLET BY MOUTH EVERY DAY IN THE MORNING ON EMPTY STOMACH FOR 90 DAYS Taking Valsartan 80 MG Tablet 1 tablet Orally Once a day Not-Taking/PRNpredniSONE 10 MG Tablet 1 tablet Orally [...] Objective: * Vitals: H t: 64.50, Wt: 178, BMI:30.08, BP:122/68, Wt-k.74. weight is down 10 pounds since 01-23-25. * Examination: G eneral Examination: GENERAL APPEARANCE: a lert, well hydrated, in no distress.? HEAD: n ormocephalic. SKIN: g ood turgor. HEART: n o murmurs, rubs, gallops, regular rate and rhythm.? LUNGS: n o wheezes, rales, rhonchi, good air movement, clear to auscultation bilaterally. MUSCULOSKELETAL: n on tender to palpation. Assessment: * Assessment: 1. H yperthyroidism - E05.90 (Primary) 2 . M yalgia - M79.10 ? Plan: * Treatment: 2. M yalgia Start Ibuprofen Tablet, 800 MG, 1 tablet with food or milk as needed, Orally, every 8 hrs, 30 days, 90 Tablet, Refills 1. Notes: am concerned that it may be a neurologic disorder. is continuing to have difficulty on stairs that came on suddenly. nothing on ner spine mri that would explain this.will consider neuro evaluation at next visit * Procedure Codes: 3 6415 VENIPUNCT, ROUTINE* * Follow Up: 3 Weeks * * Sign off status: Completed true * Provider: Qing Khanna MD Date: 0 02/24/2025 Generated for Gianni mendez/Kimberly/Irwin on: 1 11/10/2024 01:41 PM EST History and Physical Notes * HPI (History of Present Illness) Category Sub-Category Detail Notes Category Not es Symptom(s) patient is 70 y o female here for 4 week follow up visit/ pain is increasing in lower legs. back of legs feel stretched/ pain alos in upper arms and lower back pain. gets severe pain in getting out of chair or out suv. Examination Category Sub-Category Detail Notes Category Not es General Examination GENERAL APPEARANCE: alert, w ell hydrated, in no distress HEAD: normocephalic HEART: no murmurs, rubs, ga llops, regular rate and rhythm LUNGS: no wheezes, rales, r honchi, good air movement, clear to auscultation bilaterally SKIN: good turgor MUSCULOSKELETAL: non tender to palpat ion
--- OUTSIDE RECORDS SUMMARY | 2025-03-02 09:27 | XMS_ITS ---
Author Organization Valerio Khanna MD Address [address] [place] [address] [place] [phone] Care Team Providers Care Hide Mill Man Name Role Phone Clemencia Valerio Primary Care Provider [phone] REASON FOR VISIT ? repeat urine apt Encounters Encounter Location Date Provider Diagnosis Valerio Khanna MD [address] [place] [address] [place] [phone] 03/02/2025 Valerio Khanna Plan Of Treatment Next Appt Details Provider Name:Valerio Garciazulma ier, 12/22/2025 07:15:00 AM, [address] [place] [address], [place] [address], [place], [place], [phone], Provider Name:Valerio Rowdy Garnica ier, 12/28/2025 10:30:00 AM, [address] [place] [address], [place], [place], [phone], Progress Notes * Divya STRATTONOB:1955 (70 yo F)Acc No.[id number]:03/02/2025 Patient: Tg ELAM :1955 A ge:70 Y S ex:Female Address:[address] [place] [address], [address] * true * Date: Generated for Printi ng/Faxing/eTransmitting on: 11/10/2024 01:39 PM EST
--- OUTSIDE RECORDS SUMMARY | 2025-03-17 05:15 | XMS_ITS ---
Author Organization Valerio Khanna MD Address [address] [place], [place] [phone] Care Team Providers Care Ruby On Rails Engineer Name Role Phone Valerio Khanna Primary Care Provider Allergies No Known Allergies REASON FOR VISIT 3 week Medications Medication SIG (Take, Route, Frequency, Duration) Notes Start Date End Date Status Valsartan 80 MG 1 tablet Orally Once a day for 30 days 01/23/2025 Active Aspirin 81 81 MG 1 tablet Orally Once a day for 30 day(s) Not-Taking Multi Adult Gummies - as directed Orally 0 Not-Taking Levothyroxine Sodium 112 MCG TAKE 1 TABLET BY MOUTH EVERY DAY IN THE MORNING ON EMPTY STOMACH FOR 90 DAYS for 90 Active Escitalopram Oxalate 10 MG 1 tablet Oral ly Once a day for 30 days 01/23/2025 Active predniSONE 10 MG 1 tablet Orally Once a day for 30 days 06/26/2024 Not-Taking Ibuprofen 200 MG 1 tablet with food o r milk as needed Orally Three times a day Not-Taking Ibuprofen 800 MG 1 tablet with food o r milk as needed Orally every 8 hrs for 30 days 02/24/2025 Active Vital Signs Blood pressure systolic 122 mm Hg 03/17/20 25 Blood pressure diastolic 68 mm Hg 025 Height 64.50 in 03/17/2025 Weight 179 lbs 03/17/2025 BMI 30.25 kg/m2 03/17/2025 Encounters Encounter Location Date Provider Diagnosis Valerio Khanna MD [address] [place], [place] [id number] 03/17/2025 Valerio Khanna Arthralgia M25.50 Assessments Encounter Date Diagnosis (ICD Code) Assessment Notes Treatment Notes Treatment Clinical Notes Section Notes 03/17/2025 Arthralgia (ICD-10 - M25.50) finally doing much better. will continue on the ibuprofen and will continue to monitor Plan Of Treatment Treatment Notes Assessment Notes Arthralgia finally doing much b liu. will continue on the ibuprofen and will continue to monitor Next Appt Details Follow Up: 3 Months, Reason: Provider Name:Valerio Garnica ier, 12/22/2025 07:15:00 AM, [address], [address], [place], [place], [phone], Provider Name:Valerio Garnica ier, 12/28/2025 10:30:00 AM, [address] [facility], [address], [place], [place], [phone], Progress Notes * Divya STRATTONOB:1955 (70 yo F)Acc No.[id number]:03/17/2025 Progress Notes Patient: Tg ELAM Provider: Qing Khanna MD :1955 A ge:70 Y S ex:Female Date:03/17/2025 Address:[address] [place], [place] [phone] Subjective: * Chief Complaints: * 3 week * HPI: S ymptom(s): patient is a 70 yo female here for 3 week follow up visit, doing much better on the ibuprofen. able to go up and down stairs. able to navigate stairs. worked all day outside and was a little sore. * ROS: G eneral/Constitutional: Denies C hills. D enies F atigue. D enies F ever. D enies H eadache. E NT: Denies S ore throat. R espiratory: Denies C ough. D enies S hortness of breath at rest. D enies S hortness of breath with exertion. C ardiovascular: Denies C hest pain at rest. D enies C hest pain with exertion. D enies D izziness. D enies P alpitations. D enies S hortness of breath. G astrointestinal: Denmerlyn D iarrhea. D enies N ausea. * Medical History: * Surgical History: * Hospitalization/Major Diagno stic Procedure: * Medications: T akingEscitalopram Oxalate 10 MG Tablet 1 tablet Orally Once a day Levothyroxine Sodium 112 MCG Tablet TAKE 1 TABLET BY MOUTH EVERY DAY IN THE MORNING ON EMPTY STOMACH FOR 90 DAYS Valsartan 80 MG Tablet 1 tablet Orally Once a day Ibuprofen 800 MG Tablet 1 tablet with food or milk as needed Orally every 8 hrs Taking Escitalopram Oxalate 10 MG Tablet 1 tablet Orally Once a day Taking Levothyroxine Sodium 112 MCG Tablet TAKE 1 TABLET BY MOUTH EVERY DAY IN THE MORNING ON EMPTY STOMACH FOR 90 DAYS Taking Valsartan 80 MG Tablet 1 tablet Orally Once a day Taking Ibuprofen 800 MG Tablet 1 tablet with food or milk as needed Orally every 8 hrs Not-Taking/PRNpredniSONE 10 MG Tablet 1 tablet Orally [...] Objective: * Vitals: H t: 64.50, Wt: 179, BMI:30.25, BP:122/68, Wt-k.19. * Examination: G eneral Examination: GENERAL APPEARANCE: a lert, well hydrated, in no distress.? HEAD: n ormocephalic. SKIN: g ood turgor. HEART: n o murmurs, rubs, gallops, regular rate and rhythm.? LUNGS: c lear to auscultation bilaterally, clear anteriorly and posteriorly. Assessment: * Assessment: 1. A rthralgia - M25.50 (Primary) Plan: * Treatment: * Procedure Codes: * Follow Up: 3 Months * * Sign off status: Completed true * Provider: Qing Khanna MD Date: 0 03/17/2025 Generated for Gianni mendez/Kimberly/Irwin on: 1 11/10/2024 01:39 PM EST History and Physical Notes * HPI (History of Present Illness) Category Sub-Category Detail Notes Category Not es Symptom(s) patient is a 70 yo female here for 3 week follow up visit, doing much better on the ibuprofen. able to go up and down stairs. able to navigate stairs. worked all day outside and was a little sore. Examination Category Sub-Category Detail Notes Category Not es General Examination GENERAL APPEARANCE: alert, w ell hydrated, in no distress HEAD: normocephalic HEART: no murmurs, rubs, ga llops, regular rate and rhythm LUNGS: clear to auscultatio n bilaterally, clear anteriorly and posteriorly SKIN: good turgor
--- OUTSIDE RECORDS SUMMARY | 2025-04-02 02:45 | XMS_ITS ---
Author Organization Valerio Khanna MD Address [address] [place], [place] [phone] Care Team Providers Care Substation Maintenance Technician Name Role Phone ClemenciaSarahn Primary Care Provider Results Component Value Reference Range Notes Urinalysis and Microscopic Reviewed date:04/02/2025 04:32:10 PM Interpretation: Performing Lab:[facility], [address] [place] [id number] Notes/Report: Color Urine Dark Yellow Appearance Urine Clear PH 5.0 5.0-9.0 Glucose Urine UA Negative Negative mg/dL Urine Blood Negative Negative Specific [place] - Urine >= 1.030 1.005-1.025 Urine Protein Trace Neg-Trace mg/dL Urine Ketones Trace Negative mg/dL Nitrite Urine Negative Negative Leukocyte Esterase Urine Trace Negative RBC Urine 0-2 0-2 /HPF WBC Urine 0-5 0-5 /HPF Squamous Epithelial Cell Urine 0-2 0-2 /HPF Bacteria Urine None Seen None Seen Hyaline Casts Urine 0-2 0-2 /LPF REASON FOR VISIT 2 week repeat urine Encounters Encounter Location Date Provider Diagnosis Valerio Khanna MD [address] [place], [place] [phone] 04/02/2025 Valerio Khanna Hematuria, unspecified type R31.9 Assessments Encounter Date Diagnosis (ICD Code) Assessment Notes Treatment Notes Treatment Clinical Notes Section Notes 04/02/2025 Hematuria, unspecified type (ICD-10 - R31.9) Plan Of Treatment Next Appt Details Provider Name:Valerio cassidy, 12/22/2025 07:15:00 AM, [address], [address], [place], [place], [phone], Provider Name:Valerio Garnica ier, 12/28/2025 10:30:00 AM, [address], [address], [place], [place], [phone], Progress Notes * Divya STRATTONOB:1955 (70 yo F)Acc No.[id number]:04/02/2025 Progress Note Patient: Tg ELAM Provider: Qing Khanna MD :1955 A ge:70 Y S ex:Female Date:04/02/2025 Address:[address] [place], [place] [phone] Subjective: * Chief Complaints: * 1 . 2 week repeat urine. * Medical History: Objective: * Vitals: Assessment: * Assessment: 1. H ematuria, unspecified type - R31.9 (Primary) Plan: * Treatment: * * The named appointment provid er may or may not be the originator of this progress note, and it is not deemed complete until electronically signed by the appointment provider. Sign off status: Pending * Provider: Qing Khanna MD Date: 04/02/2025 Generated for Gianni mendez/Kimberly/Chavaitting on: 11/10/2024 01:40 PM EST
--- OUTSIDE RECORDS SUMMARY | 2025-06-01 08:44 | XMS_ITS ---
Author Organization Valerio Khanna MD Address [address] [place] [phone] Care Team Providers Care Basting Cleaner Name Role Phone Valerio Khanna Primary Care Provider REASON FOR VISIT pelvic us order Encounters Encounter Location Date Provider Diagnosis Valerio Khanna MD [address] [place] [address] Drive [address] [place] [id number] 06/01/2025 Valerio Khanna Abnormal CAT scan R93.89 Assessments Encounter Date Diagnosis (ICD Code) Assessment Notes Treatment Notes Treatment Clinical Notes Section Notes 06/01/2025 Abnormal CAT scan (ICD-10 - R93.89) Plan Of Treatment Pending Test Test Name Order Date US pelvic and transvaginal 06/01/2025 Next Appt Details Provider Name:Valerio Garnica ier, 12/22/2025 07:15:00 AM, [address] [place] [address], [address], [phone], Provider Name:Valerio Reno Danika ier, 12/28/2025 10:30:00 AM, [address] [place] [address], [address], [phone], Progress Notes * Roger STRATTON:1955 (70 yo F)Acc No.[id number]:06/01/2025 Patient: Tg ELAM :1955 A ge:70 Y S ex:Female Address:[address] [place] [address], [place] [address] Subjective: * Chief Complaints: * P elvic us order * Medical History: * Surgical History: * Hospitalization/Major Diagno stic Procedure: * Medications: Objective: * Vitals: * Physical Examination: Assessment: * Assessment: 1. A bnormal CAT scan - R93.89 Plan: * Treatment: * Procedure Codes: * true * Date: Generated for Gianni mendez/Kimberly/Kaitsmbambi on: 11/10/2024 01:40 PM EST
--- OUTSIDE RECORDS SUMMARY | 2025-06-22 05:00 | XMS_ITS ---
Author Organization Valerio Khanna MD Address [address] [place], [place] [phone] Care Team Providers Care Termite Inspector Name Role Phone Clemencia Valerio Primary Care Provider Allergies No Known Allergies REASON FOR VISIT 3 month, Patient would like weight loss drug Medications Medication SIG (Take, Route, Frequency, Duration) Notes Start Date End Date Status predniSONE 10 MG 1 tablet Orally Once a day for 30 days 06/26/2024 Not-Taking Ibuprofen 200 MG 1 tablet with food o r milk as needed Orally Three times a day Not-Taking Ibuprofen 800 MG TAKE 1 TABLET BY KEON TH EVERY 8 HOURS WITH FOOD OR MILK NEEDED for 30 Active Escitalopram Oxalate 10 MG TAKE 1 TABLET BY MOUTH EVERY DAY for 90 Active Valsartan 80 MG 1 tablet Orally Once a day for 30 days 01/23/2025 Active Multi Adult Gummies - as directed Orally Not-Taking Aspirin 81 81 MG 1 tablet Orally Once a day for 30 day(s) Not-Taking Levothyroxine Sodium 112 MCG TAKE 1 TABLET BY MOUTH EVERY DAY IN THE MORNING ON EMPTY STOMACH FOR 90 DAYS for 90 Active Zepbound 2.5 MG/0.5ML 0.5 mL Subcutaneou s once 2.5 mg once a week for 30 days 06/22/2025 Active Problems Problem Type SNOMED Code ICD Code Onset Dates Problem Status W/U Status Risk Notes Problem Carpal tunnel syndrome (07885951) Carpal tunnel syndrome (G56.00) Active confirmed Vital Signs Blood pressure systolic 120 mm Hg 06/22/20 25 Blood pressure diastolic 70 mm Hg 025 Height 64.50 in 06/22/2025 Weight 178 lbs 06/22/2025 BMI 30.08 kg/m2 06/22/2025 Encounters Encounter Location Date Provider Diagnosis Valerio Khanna MD [address] [place] [address] [place] [id number] 06/22/2025 Valerio Khanna Carpal tunnel syndrome G56.00 and Weight gain R63.5 Assessments Encounter Date Diagnosis (ICD Code) Assessment Notes Treatment Notes Treatment Clinical Notes Section Notes 06/22/2025 Carpal tunnel syndrome (ICD-10 - G56.00) doesn't want an emg. will try wrist splint. 06/22/2025 Weight gain (ICD-10 - R63.5) patient verbalized understanding of medication and directions for use Plan Of Treatment Medication Medication Name Sig Start Date Stop Date Notes Zepbound 2.5 MG/0.5ML 0.5 mL Subcutaneou s once 2.5 mg once a week for 30 days 06/22/2025 Treatment Notes Assessment Notes Carpal tunnel syndrome doesn't want an e mg. will try wrist splint. Weight gain patient verbalized u nderstanding of medication and directions for use Next Appt Details Follow Up: 4 Weeks, Reason: Provider Name:Valerio cassidy, 12/22/2025 07:15:00 AM, [address] [place] [address], [address], [phone], Provider Name:Valerio cassidy, 12/28/2025 10:30:00 AM, [address] [place] [address], [place] [address], [place], [place], [phone], Progress Notes * Divya STRATTONOB:1955 (70 yo F)Acc No.[id number]:06/22/2025 Progress Notes Patient: Jose Alberto DOSSTg MEAD Provider: Qing Khanna MD :1955 A ge:70 Y S ex:Female Date:06/22/2025 Address:[address] [place] [address] Subjective: * Chief Complaints: * 3 monthPatient would like weight loss drug * HPI: S ymptom(s): patient is a 70 yo female here for 3 month follow up visit/ has seen urology and had repeat/ leg pain is gone. feels as though hands are swollen and has trouble using them until she gets going. * ROS: G eneral/Constitutional: Denies C hills. D enies F atigue. D enies F ever. D enies H eadache. E NT: Patient denies d ecreased sense of smell, any loss of taste, sore throat. D enies S ore throat. R espiratory: Denies C ough. D enies S hortness of breath at rest. D enies S hortness of breath with exertion. G astrointestinal: Denies D iarrhea. D enies N ausea. M usculoskeletal: Patient denies m uscle aches. P eripheral Vascular: Patient denies r ed and blue toes. * Medical History: * Surgical History: * Hospitalization/Major Diagno stic Procedure: * Medications: T akingLevothyroxine Sodium 112 MCG Tablet TAKE 1 TABLET BY MOUTH EVERY DAY IN THE MORNING ON EMPTY STOMACH FOR 90 DAYS Valsartan 80 MG Tablet 1 tablet Orally Once a day Ibuprofen 800 MG Tablet TAKE 1 TABLET BY MOUTH EVERY 8 HOURS WITH FOOD OR MILK NEEDED Escitalopram Oxalate 10 MG Tablet TAKE 1 TABLET BY MOUTH EVERY DAY Taking Levothyroxine Sodium 112 MCG Tablet TAKE 1 TABLET BY MOUTH EVERY DAY IN THE MORNING ON EMPTY STOMACH FOR 90 DAYS Taking Valsartan 80 MG Tablet 1 tablet Orally Once a day Taking Ibuprofen 800 MG Tablet TAKE 1 TABLET BY MOUTH EVERY 8 HOURS WITH FOOD OR MILK NEEDED Taking Escitalopram Oxalate 10 MG Tablet TAKE 1 TABLET BY MOUTH EVERY DAY Not-Taking/PRNpredniSONE 10 MG Tablet 1 tablet Orally [...] Vitals: H t: 64.50, Wt: 178, BMI:30.08, BP:120/70, Wt-k.74. * Examination: G eneral Examination: GENERAL APPEARANCE: a lert, well hydrated, in no distress.? SKIN: g ood turgor. HEART: r egular rate and rhythm, no murmurs, rubs, gallops.? LUNGS: n o wheezes, rales, rhonchi, good air movement, clear to auscultation bilaterally. EXTREMITIES: n egative tinnel. Assessment: * Assessment: 1. C arpal tunnel syndrome - G56.00 (Primary) 2 . W eight gain - R63.5 Plan: * Treatment: 2. W eight gain Start Zepbound Solution Auto-injector, 2.5 MG/0.5ML, 0.5 mL, Subcutaneous, once 2.5 mg once a week, 30 days, 2, Refills 3. Notes: patient verbalized understanding of medication and directions for use * Procedure Codes: * Follow Up: 4 Weeks * * Sign off status: Completed true * Provider: Qing Khanna MD Date: 0 06/22/2025 Generated for Gianni mendez/Kimberly/Kaitsmitting on: 11/10/2024 01:41 PM EST History and Physical Notes * HPI (History of Present Illness) Category Sub-Category Detail Notes Category Not es Symptom(s) patient is a 70 yo female here for 3 month follow up visit/ has seen urology and had repeat/ leg pain is gone. feels as though hands are swollen and has trouble using them until she gets going. Examination Category Sub-Category Detail Notes Category Not es General Examination GENERAL APPEARANCE: alert, w ell hydrated, in no distress HEART: regular rate and rhy thm, no murmurs, rubs, gallops LUNGS: no wheezes, rales, r honchi, good air movement, clear to auscultation bilaterally SKIN: good turgor EXTREMITIES: negative tinnel
--- OUTSIDE RECORDS SUMMARY | 2025-07-21 11:30 | XMS_ITS ---
Author Organization Valerio Khanna MD Address [address] [place] [address] [place] [phone] Care Team Providers Care Last Trimmer Name Role Phone Clemencia Valerio Primary Care Provider [phone] REASON FOR VISIT 4 week Encounters Encounter Location Date Provider Diagnosis Valerio Khanna MD [address] [place] [address] [place] [phone] 07/21/2025 Valerio Khanna Plan Of Treatment Next Appt Details Provider Name:Valerio Garnica ier, 12/22/2025 07:15:00 AM, [address] [place] [address], [place] [address], [place], [place], [phone], Provider Name:Valerio Garciazulma ier, 12/28/2025 10:30:00 AM, [address] [place] [address], [place] [address], [place], [place], [phone], Progress Notes * Divya STRATTONOB:1955 (70 yo F)Acc No.[id number]:07/21/2025 Progress Notes Patient: Tg ELAM Provider: Qing Khanna MD :1955 A ge:70 Y S ex:Female Date:07/21/2025 Address:[address] [place] [address] Subjective: * Chief Complaints: * 1 . 4 week. * Medical History: Objective: * Vitals: Assessment: Plan: * Treatment: * * The named appointment provid er may or may not be the originator of this progress note, and it is not deemed complete until electronically signed by the appointment provider. Sign off status: Pending * Provider: Qing Khanna MD Date: 0 07/21/2025 Generated for Gianni mendez/Kimberly/Irwin on: 11/10/2024 01:41 PM EST
--- OUTSIDE RECORDS SUMMARY | 2025-07-28 09:20 | XMS_ITS ---
Author Organization Valerio Khanna MD Address [address] [place], [place] [id number] Care Team Providers Care Business Project Analyst Name Role Phone RadhaValerio demarco Primary Care Provider Reason For Referral Reason please eval ene baez t Diagnosis 1 Abnormal CAT scan (R 93.89) Referral Organization Valerio Khanna MD Referring Provider First Name Valerio Referring Provider Last Name Clemencia Referring Provider Speciality Internal M edicine Referred Provider ADITI MELTON Referred Provider Specialty OB - Gynecol ogy General Notes Kellie Mims 0 07/30/2025 09:13:29 AM > referral info faxed, Kellie Mims 08/11/2025 03:41:21 PM > was told appt is being worked on, Kellie Mims 08/14/2025 09:54:03 AM >referral info mailed to patient Referral Priority Routine Referral Appointment Date 08/26/2025 REASON FOR VISIT review US Encounters Encounter Location Date Provider Diagnosis Valerio Khanna MD [address] [place], [place] [id number] 07/28/2025 Valerio Khanna Plan Of Treatment Referrals Referral Date Details 07/30/2025 07/30/2025, please e jeanine and treatADITI Next Appt Details Provider Name:Valerio cassidy, 12/22/2025 07:15:00 AM, [address] [place] [address] Drive, [address], [place], [place], [id number], Provider Name:Valerio cassidy, 12/28/2025 10:30:00 AM, [address], [address], [place], [place], [id number], Progress Notes * Divya STRATTONOB:1955 (70 yo F)Acc No.[id number]:07/28/2025 Patient: Tg ELAM :1955 A ge:70 Y S ex:Female Address:[address] [place] [address], [id number] Subjective: * Chief Complaints: * r naldo US * Medical History: * Surgical History: * Hospitalization/Major Diagno stic Procedure: * Medications: Objective: * Vitals: * Physical Examination: Assessment: Plan: * Treatment: * Procedure Codes: * true * Date: Generated for Gianni mendez/Kimberly/eTransmitting on: 11/10/2024 01:40 PM EST Consultation Request Notes Referral Date Referring Provider Referred Provider Not 07/30/2025 Valerio Khanna MARC please eval and treat
--- OUTSIDE RECORDS SUMMARY | 2025-08-27 09:09 | XMS_ITS ---
Author Organization Valerio Khanna MD Address [address] [place] [address] [place] [phone] Care Team Providers Care Supervisor [employer] Name Role Phone Valerio Khanna Primary Care Provider REASON FOR VISIT Saw Dr Hooper 08-26-25 Encounters Encounter Location Date Provider Diagnosis Valerio Khanna MD [address] [place] [address] [place] [phone] 08/27/2025 Valerio Khanna Plan Of Treatment Next Appt Details Provider Name:Valerio Garnica ier, 12/22/2025 07:15:00 AM, [address] [place] [address], [place] [address], [place], [place], [phone], Provider Name:Valerio Garciazulma ier, 12/28/2025 10:30:00 AM, [address] [place] [address], [place], [place], [phone], Progress Notes * Divya STRATTONOB:1955 (70 yo F)Acc No.[id number]:08/27/2025 Patient: Jose Alberto TEJADA Tg :1955 A ge:70 Y S ex:Female Address:[address] [place] [address], [id number] * true * Date: Generated for Printi ng/Faxing/eTransmitting on: 11/10/2024 01:40 PM EST
--- NOTE | 2025-09-10 11:11 | MHC.OFFVIS ---
Vital Signs 09/10/25 11:13 Height 5 ft 4 in Weight 174 lb BMI 29.9 Intake Visit Reasons: post op Allergies nickel Allergy (Intermediate, Verified 08/28/25 08:47) Rash HPI Comments Details: The patient is presenting post hysteroscopy D&C no complaints minimal vaginal bleeding no feverishness chills or abdominal pain. The pathology showed the following: A. Endometrial polyp, resection: Benign endocervical glandular polyp. B. Endometrium, curettage: Fragments of benign endometrial polyp with atrophy and cysts; no atypia or carcinoma PFSH Medical History HTN (hypertension) Toxic multinodular goiter Vitamin D deficiency Multinodular thyroid Hyperthyroidism Surgical History Hx of total thyroidectomy History of foot surgery Hx of cataract surgery Family History Father Diabetes mellitus Mother HTN (hypertension) Breast cancer Maternal Aunt Breast cancer Family/Other Breast cancer Social History Household Members: None Housing: House Alcohol intake: current Alcohol intake frequency: holidays/special occasions only Patient Tobacco Use Status: Former Tobacco user Cigarette Packs Per Day: 2 Years Smoked: 15 Current occupational status: retired Sexual orientation: Straight/Heterosexual Gender identity: Female Review of Systems Const All systems reviewed & are unremarkable except as noted in HPI and below Reports as per HPI and Reports no additional complaints GI Reports no additional complaints Reports no additional complaints Assessment & Plan Assessment & Plan (1) Abnormal endometrial ultrasound: Code(s): R93.5 - Abnormal findings on diagnostic imaging of other abdominal regions, including retroperitoneum Category: Medical Plan: Discussed with the patient intraoperative finding and the pathology results, sensitivity, specificity false-positive and false-negative rate of D&C polypectomy in detecting endometrial pathology including endometrial hyperplasia and/or malignancy. Instructions given to patient to call in case of any future vaginal bleeding will proceed with a further endometrial sampling. All questions answered, the patient verbalized understood Coding Level of Care Code Est Pt Level 3 (97299) Diagnoses Abnormal endometrial ultrasound R93.5
[2025-09-10 11:13] VITALS: BMI 29.9
--- OUTSIDE RECORDS SUMMARY | 2025-09-10 13:41 | XMS_ITS | Patient Health Record ---
Author Organization Valerio Khanna MD Address [address] [place], [place] [address] Care Team Providers Care Vendor Specialist Name Role Phone Clemencia Valerio Primary Care Provider Allergies No Known Allergies Results Component Value Reference Range Notes Complete Blood Count Auto Di ff Reviewed date:12/16/2024 12:47:46 PM Interpretation: Performing Lab:[facility], [address] [place] [phone] Notes/Report: White Blood Count 8.9 4.8-10.8 X10*3/uL [...] t Reviewed date:12/25/2024 10:12:36 AM Interpretation:12-25-24 Performing Lab:[facility], [address] [place] [phone] Notes/Report: Urine, Clean Catch Color Urine DK YELLOW Appearance Urine Clear PH 5.5 5.0-9.0 Glucose Urine UA Negative Negative mg/dL Urine Blood Moderate (2+) Negative Specific Brewster - Urine >= 1.030 1.005-1.025 Urine Protein 30 (1+) Neg-Trace mg/dL Urine Ketones Negative Negative mg/dL Nitrite Urine Negative Negative Leukocyte Esterase Urine Negative Negative RBC Urine 11-20 0-2 /HPF WBC Urine 0-5 0-5 /HPF Squamous Epithelial Cell Urine 3-5 0-2 /HPF Bacteria Urine None Seen None Seen Hyaline Casts Urine 0-2 0-2 /LPF Urinalysis and Microscopic Reviewed date:04/02/2025 04:32:10 PM Interpretation: Performing Lab:[facility], [address] [place] [phone] Notes/Report: Color Urine Dark Yellow Appearance Urine Clear PH 5.0 5.0-9.0 Glucose Urine UA Negative Negative mg/dL Urine Blood Negative Negative Specific Brewster - Urine >= 1.030 1.005-1.025 Urine Protein [...] ff Reviewed date:12/25/2024 04:59:50 PM Interpretation: Performing Lab:[facility], [address] [place] [phone] Notes/Report: White Blood Count 8.9 4.8-10.8 X10*3/uL [...] ff Reviewed date:02/24/2025 06:32:02 PM Interpretation: Performing Lab:[facility], [address] [place] [phone] Notes/Report: White Blood Count 7.7 4.8-10.8 X10*3/uL [...] te Reviewed date:02/24/2025 06:31:37 PM Interpretation: Performing Lab:[facility], [address] [place] [phone] Notes/Report: Erythrocyte Sedimentation Rate 2 0-20 MM/HR Patients with polycythemia and many hemoglobin abnormalities may have depressed sed rates whereas patients with anemia may have elevated sed rates. Comprehensive [place]. Panel Fa st Reviewed date:02/25/2025 12:32:54 PM Interpretation: Performing Lab:[facility], [address] [place] [phone] Notes/Report: Sodium 141 135-145 mmol/L Potassium 4.1 [...] T4 Reviewed date:02/25/2025 12:33:04 PM Interpretation: Performing Lab:[facility], [address] [place] [phone] Notes/Report: TSH reflex Free T4 1.95 0.32-4.0 uIU/mL Lay Siddiqui Reviewed date:02/24/2025 06:25:17 PM Interpretation: Performing Lab:[facility], [address] [place] [phone] Notes/Report: Lay Siddiqui See Note Specimen held untested for 24 hours; Call to request Chemistry testing. Pathology Reviewed date:04/02/2025 07:10:16 AM Interpretation:04-02-25 Performing Lab:[address] [phone] Notes/Report: ------ Name: Tg Stratton Age/Sex: 70/F : 1955 [id number] [id number] Attend Dr: Nabila Velázquez [facility] Re02/25/25 Status : DEP REF Location: [facility] Disch: ------ SPEC : [id number] RECD : 02/26/25 STATUS: LIANG SANTACRUZ NUM: [id number] [place]: 02/25/[address]: Nabila Velázquez [facility] ENTERED: 02/26/25-12 11 SP TYPE: [...] To: Valerio Khanna MD [facility] [address] [place] [address] [address] [place] [address] Nabila Velázquez [facility] Urology Services [address] [place] [address] [address] [place], [place] [phone] [email or web address] ------ Signed (signature on file) Kevin Xiong MD 02/27/25 0756 ------ END OF REPORT Blood Urea Nitrogen Reviewed date:05/06/2025 06:25:37 PM Interpretation: Performing Lab:[facility], [address] [place] [phone] Notes/Report: Blood Urea Nitrogen 22 9-16 mg/dL Creatinine Reviewed date:05/06/2025 06:22:28 PM Interpretation: Performing Lab:[facility], [address] [place] [phone] Notes/Report: Creatinine 0.84 0.5-1.4 mg/dL Estimated Glomerular Filt Rate > 60 Chronic Kidney Disease: Estimated GFR < 60 mL/min/1.73m2 Severe Kidney Disease: Estimated GFR < 15 mL/min/1.73m2 CT urogram Reviewed date:05/11/2025 03:18:14 PM Interpretation: Performing Lab: Notes/Report: [address] [place] [address] CT Scan Report Signed Patient: Tg Stratton MR#: [id number] : 1955 Acct:[id number] Age/Sex: 70 / F ADM Date: 05/11/25 Loc: HO.CT Attending Dr: Nabila Velázquez [facility] Ordering Physician: Nabila Velázquez Date of Service: 05/11/25 Procedure(s): CT urogram Accession Number(s): [id number] cc: Valerio Khanna MD; Nabila Velázquez Report Number: [id number]: Total DLP = 819.00 mGy-cm EXAMINATION: CT [...] 05/11/25 1100 DD/ 2 TD/TT: 05/11/25 0959 Kiln Maintenance: [place] [address] CT Scan Report Signed Patient: Patito Stratton MR#: [id number] : 1955 Acct:[id number] Age/Sex: 70 / F ADM Date: 05/11/25 Loc: .CT Attending Dr: Nabila carrasco [facility] Ordering Physician: Nabila VelázquezSTEVE Date of Service: 05/11/25 Procedure(s): CT urogram Accession Number(s): [id number] cc: Valerio Khanna MD; Nabila Velázquez [facility] Report Number: [id number]: Total [...] OV> 05/11/25 1100 DD/ 2 TD/TT: 05/11/2559 Kiln Maintenance: Pathology Reviewed date:06/01/2025 12:30:43 PM Interpretation: Performing Lab:[facility], [address] [place] [phone] Notes/Report: ------ Name: Tg Stratton Age/Sex: 70/F : 1955 Unit#: [id number] Attend Dr: Nabila Velázquez Re05/27/25 Status : DEP REF Location: [facility] Disch: ------ SPEC : [id number] RECD : 05/29/25-1339 STATUS: LIANG SANTACRUZ NUM: [id number] [place]: 05/27/25-1643 [facility] DR: Nabila Velázquez ENTERED: 05/29/25-13 47 SP [...] developed and their performance characteristics determined by [facility]. They have not been cleared or appr kimberly by the U.S. Food and Drug Administration (FDA). However, the FDA has determined that such clearance or approval is not necessary. This laboratory is certified under the Clinical Laboratory Improvement Amendments of 1988 (CLIA) as qualified to perform high comp lexity clinical laboratory testing. Copies To: Valerio Khanna MD [facility] [address] [place] [address] [address] [place], [place] [phone] Nabila Velázquez [facility] Urology Services [address] [place] [address]. [address] [place] [address] [email or web address] CONTINUED ON NEXT PAGE ------ Name: Tg Stratton Age/Sex: 70/F : 1955 Unit#: [id number] Attend Dr: Nabila Velázquez [facility] Re05/27/25 Status : DEP REF Location: [facility] Disch: ------ SPEC : [id number] RECD : 05/29/25 STATUS: LIANG SANTACRUZ NUM: [id number] [place]: 05/27/25 [facility] [address]: Nabila Velázquez [facility]- ENTERED: 05/29/25 47 SP TYPE: Cytology OTHR DR: Valerio Khanna MD ORDERED: Cyto-enhanced ------ Signed (signature on file) Kevin Xiong MD 06/01/25 1000 ------ END OF REPORT Pathology Reviewed date:06/10/2025 08:25:01 PM Interpretation: Performing Lab:[facility], [address] [place] [phone] Notes/Report: ------ Name: Tg Stratton Age/Sex: 70/F : 1955 [id number]#: [id number] Attend Dr: Nabila Velázquez [facility] Re06/09/25 Status : [facility] Disch: ------ SPEC : [id number] RECD : 06/10/25 STATUS: LIANG SANTACRUZ NUM: [id number] [place]: 06/09/25-8 [facility] [address]: Nabila Velázquez [facility] ENTERED: 06/10/25 19 SP TYPE: [...] developed and their performance characteristics determined by [facility]. They have not been cleared or appr kimberly by the U.S. Food and Drug Administration (FDA). However, the FDA has determined that such clearance or approval is not necessary. This laboratory is certified under the Clinical Laboratory Improvement Amendments of 1988 (CLIA) as qualified to perform high comp lexity clinical laboratory testing. Copies To: Valerio Khanna MD [facility] [address] [place] [address] [address] [place] [address] Nabila Velázquez [facility] Urology Services [address] [place] [address] Ezra Magen [address] [place] [address] [email or web address] CONTINUED ON NEXT PAGE ------ Name: Tg Stratton Age/Sex: 70/F : 1955 Unit#: [id number] Attend Dr: Nabila Velázquez [facility] Re06/09/25 Status : DEP REF Location: [facility] Disch: ------ SPEC : [id number] RECD : 06/10/25-849 STATUS: LIANG SANTACRUZ NUM: [id number] [place]: 06/09/25-1108 [facility] DR: Nabila Velázquez [facility] ENTERED: 06/10/25- 19 SP TYPE: Cytology OTHR DR: Valerio Khanna MD ORDERED: Cyto-enhanced ------ Signed (signature on file) Sunita Bangor 06/10/25 1448 ------ END OF REPORT US pelvic and transvaginal Reviewed date:07/28/2025 06:14:12 PM Interpretation: Performing Lab: Notes/Report: [address] [address] Ultrasound Report Signed with Josefina Patient: Tg Stratton MR#: [id number] : 1955 Acct:[id number] Age/Sex: 70 / F ADM Date: 07/27/25 Loc: HO.US Attending Dr: Valerio Khanna MD Ordering Physician: Valerio Khanna MD Date of Service: 07/27/25 Procedure(s): US pelvic and transvaginal Accession Number(s): [id number] cc: Valerio Khanna MD Reason for Exam: abnormal C.T. (low density centrally on uterus), US recommended ADDENDUM This document has been electronically signed by: Cindy Cox MD on 07/28/2025 13:47:15 ADDENDUM: Receipt of this report by the clinical staff was confirmed with [employer] on Jul 28, 2025 14:17:00 EDT. This [...] 07/28/25 1348 DD/ 1347 TD/TT: 07/28/25 1347 Kiln Maintenance: [place] [address] Ultrasound Report Signed with Addenda Patient: Patito Stratton MR#: [id number] : 1955 Acct:[id number] Age/Sex: 70 / F ADM Date: 07/27/25 Loc: HO.US Attending Dr: Valerio Khanna MD Ordering Physician: Valerio Khanna MD Date of Service: 07/27/25 Procedure(s): US pel brenda and transvaginal Accession Number(s): [id number] cc: Valerio Khanna MD Reason for Exam: [...] in OV> 07/28/25 1348 DD/ 46 TD/TT: 07/28/251346 Kiln Maintenance: Pap Smear Reviewed date:09/01/2025 05:15:29 PM Interpretation: Performing Lab:[facility], [address] [place] [phone] Notes/Report: ------ Name: Tg Stratton Age/Sex: 70/F : 1955 Unit#: [id number] Attend Dr: Junior Hooper MD Re08/26/25 Status : [facility] REF Location: [facility] Disch: ------ SPEC : [id number] RE CD: 08/28/25 STATUS: [facility] RE NUM: [id number] [place]: 08/26/[address] [facility] [address]: Junior Hooper MD ENTERED: 08/28/25 55 SP TYPE: Pap Smr OTHR DR: Valerio Khanna MD ORDERED: Pap Smear Interpretation Satisfactory for evaluation. Negative for intraepithelial lesion or malignancy. Atrophic. HPV High Risk: Negative HPV Genotyping 16: Negative HPV Genotyping 18: Negative Clinical Information LMP: Previous PAP test: Other surgery: Other history: Material Received ThinPrep-Cervical Copies To: Valerio Khanna MD [facility] [address] [facility] [address] [place], [place] [phone] Junior Hooper MD [facility] Women[facility] [address] [facility] [address] [place] [address] ------ Signed (signature on file) Fermin ILIA Lemus (ASCP) 09/01/25 1331 ------ END OF REPORT HPV High risk Reviewed date:09/01/2025 05:15:39 PM Interpretation: Performing Lab:[facility], [address] [place] [phone] Notes/Report: HPV High Risk Negative Negative HPV Genotype 16 Negative Negative HPV Genotype 18 Negative Negative HPV testing performed at [facility] (CLIA #[id number] ), [address] [place] [address]. Testing for HPV was performed using the Nataliia BOBBY 6800 system. The presence of HPV in the female genital tract is associated with a number of diseases, including cervical carcinoma. The HPV DNA high risk pool tests for HPV 31, 33, 35, 39, 45, 51, 52, 56, 58, 59, 66 and 68. The testing for HPV 16 and 18 genotypes has also been performed. A positive result indicates detection of nucleic acid sequences from one or more subtypes, whereas a negative result indicates such sequences were not detected. Pathology Reviewed date:09/01/2025 12:50:35 PM Interpretation: Performing Lab:[facility], [address] [place] [phone] Notes/Report: ------ Name: Tg Stratton Age/Sex: 70/F : 1955 Unit#: [id number] Attend Dr: Junior Hooper MD Re08/28/25 Status : [facility] Location: [facility] Disch: ------ SPEC : [id number] RECD : 08/28/25 [facility] NUM: [id number] [place]: 08/28/256 [facility] [address]: Junior Hooper MD ENTERED: 08/28/25 28 SP TYPE: Surgical OTHR DR: Valerio Khanna MD ORDERED: HE Stain/4, Gross Micro L4/2 Diagnosis A. Endometrial polyp , resection: Benign endocervical glandular polyp. B. Endometrium, cure ttage: Fragments of benign endometrial polyp with atrophy and cysts; no atypia or carcinoma. Clinical History Pre-Op Dx: Abnormal findings on diagnostic imaging Post-Op Dx: Endometr ial polyp Microscopic Description Microscopic sections reviewed. Material Received A. Endometrial polyp B. [facility] Gross Description A. Received in forma arnulfo in a nylon sock is a 0.5 cc aggregate of covarrubias-white minute soft tissue. The specimen is filtered and totally submitted in cassette A1. B. Received in forma arnulfo is a 2.0 x 1.2 x 0.3 cm aggregate of pink-white glistening irregular soft tissue admixed with a scant amount of clotted blood. The specimen is filtered and totally submitted in cassette B1. (WILEY) Excision to formalin time: Immediate; total time in formalin: 48-72 hours IHC S/NG Disclaimer NOTE: Unless otherwi se stated, all tissue is formalin-fixed and paraffin-embedded. Some or all of the immunohistochemical tests reported herein may have been developed and their performance characteristics determined by [facility]. They have not been cleared or appr kimberly by the U.S. Food and Drug Administration (FDA). However, the FDA has determined that such clearance or approval is not necessary. This laboratory is certified under the Clinical Laboratory Improvement Amendments of 1988 (CLIA) as qualified to perform high comp lexity clinical laboratory testing. CONTINUED ON NEXT PAGE ------ Name: Tg Stratton Age/Sex: 70/F : 1955 Unit#: [id number] Attend Dr: Junior Hooper MD Re08/28/25 Status : [facility] Location: [facility] Disch: ------ SPEC : [id number] RECD : 08/28/253 STATUS: LIANG SANTACRUZ NUM: [id number] [place]: 08/28/25-1116 [facility] DR: Junior Hooper MD ENTERED: 08/28/25- 28 SP TYPE: Surgical OTHR DR: Valerio Khanna MD ORDERED: HE Stain/4, Gross Micro L4/2 Copies To: Valerio Khanna MD [facility] [address] [place] [address] Junior Hooper MD [facility] Women's Services [address] [place] [address] ------ Signed (signature on file) Sunita Amber 08/31/25 1529 ------ END OF REPORT Reason For Referral Reason please mayank rebolledo [...] Provider Speciality Internal M edicine Referred Provider JUNIOR HOOPER Referred Provider Specialty OB - Gynecol ogy General Notes Christen Mimsette 0 07/30/2025 09:13:29 AM > referral info faxed, Prasanna, Kellie 08/11/2025 03:41:21 PM > was told appt [...] Active Immunizations Vaccine Route Administration Date Status Comme nts Fluarix Quadrivalent IM Intramuscular 09/05/2019 Adminnikita richter pt was given the vaccine at a [facility] in [facility]. PPSV23 (Pnemovax) IM Intramuscular 05/24/2020 Administered Influenza High Dose IM Intramuscular 07/15/2020 Administer ed Influenza High Dose IM Intramuscular 08/18/2021 Administer ed Fluarix Quadrivalent Unknown 08/18/2021 Administered SARS-COV-2 Pfizer Unknown 01/23/2021 Administered SARS-COV-2 Pfizer Unknown 02/13/2021 Administered SARS-COV-2 Pfizer Unknown 09/13/2021 Administered Fluarix Quadrivalent IM Intramuscular 11/28/2022 Administe red Fluarix Quadrivalent - 150 Unknown 06/26/2024 Administered [...] Status Risk Notes Problem Carpal tunnel syndrome (82682589) Carpal tunnel syndrome (G56.00) Active confirmed Problem Anxiety (60610865) Anxiety (F41.9) Active confi rmed Problem 37818631 Polymyalgia rheumatica (M35.3) Active confirmed Problem Essential hypertension (42806977) Essential hypertension (I10) Active confirmed Problem 406784580 Acquired hypothyroidism (E03.9) Active confirmed Problem Hyperthyroidism (70539230) Hyperthyroidism (E05.90) Active confirmed Problem Labile essential hypertension (167742607) Labile hypertension (I10) Active confirmed Problem 638794851 History of pneumonia (Z87.01) Active confirmed Problem Non-toxic single thyroid nodule (661420318) Left thyroid nodule (E04.1) Active confirmed Problem Computed tomography result abnormal (436206095) Abnormal CAT scan (R93.89) Active confirmed Problem Non-toxic multinodular goiter (27169893) Multinodular goiter (nontoxic) (E04.2) Active confirmed Vital Signs Blood pressure diastolic 70 mm Hg 06/22/2025 Height 64.50 in 06/22/2025 Blood pressure systolic 120 mm Hg 06/22/2025 Weight 178 lbs 06/22/2025 BMI 30.08 kg/m2 06/22/2025 Encounters Encounter Location Date Provider Diagnosis Valerio Khanna MD [address] [place] [id number] 12/16/2024 Valerio Khanna Blood tests for rout ine general physical examination Z00.00 ; Hyperthyroidism E05.90 and Labile hypertension I10 Valerio Khanna MD [address] [place] [address] [id number] 04/02/2025 Valerio Khanna Hematuria, unspecifi ed type R31.9 Valerio Khanna MD [address] [place] [address] [id number] 12/25/2024 Valerio Khanna Acquired hypothyroid ism E03.9 ; Lethargy R53.83 ; Leg weakness, bilateral R29.898 ; Microscopic hematuria R31.29 and Polycythemia D75.1 Valerio Khanna MD [address] [place] [address] [id number] 01/23/2025 Valerio Khanna Essential hypertensi on I10 ; Anxiety F41.9 and Spinal stenosis M48.00 Valerio Khanna MD [address] [place] [address] [id number] 02/24/2025 Valerio Khanna Hyperthyroidism E05. 90 and Myalgia M79.10 Valerio Khanna MD [address] [place] [address] [id number] 03/17/2025 Valerio Khanna Arthralgia M25.50 Valerio Khanna MD [address] [place] [id number] 06/22/2025 Valerio Khanna Carpal tunnel syndro me G56.00 and Weight gain R63.5 Valerio Khanna MD [address] [place] [id number] 02/19/2025 Valerio Khanna Essential hypertensi on I10 Valerio Khanna MD [address] [place] [address] [id number] 03/02/2025 Valerio Khanna MD [address] [place] [address] [id number] 06/01/2025 Valerio Khanna Abnormal CAT scan R93.89 Valerio Khanna MD [address] [place] [address] [id number] 07/28/2025 Valerio Khanna MD [address] [place] [address] [id number] 08/27/2025 Valerio Khanna Assessments Encounter Date Diagnosis (ICD [...] (ICD-10 - R31.29) referral to urology in [place] 12/25/2024 Polycythemia (ICD-10 - D75.1) Plan Of Treatment Pending Test Test Name Order Date Comprehensive [place]. Panel Fast Lipid Panel 12/16/2024 TSH reflex Free T4 12/16/2024 CT lumbar spine wo con 01/23/2025 US thyroid 12/01/2021 US pelvic and transvaginal 06/01/2025 Next Appt Details Provider Name:Valerio Garnica ier, 12/22/2025 07:15:00 AM, [address], [address], [place], [phone], Provider Name:Valerio Garnica ier, 12/28/2025 10:30:00 AM, [address], [address], [place], [phone], Insurance Providers Payer Name Payer Address Payer Phone Subscriber Number Group Number Insured Name Patient Relationship to Insured Coverage Start Date [facility]age End Date [facility] [address] NATALIIA Brooks [phone] [id number] Tg Stratton Self - patient is the insured Medical (General) History Medical History History ICD Code refuses mammogram cologard 2019 negative refused cologard and colonoscopy refused 2024 hematuria refuses evaluation 2023
== END 2025-09-10 11:16 | disposition home or self-care (01) ==
LOC: HO.HWS 11:05
PROVIDERS: PCP Internal Medicine; Visit Provider Obstetrics & Gynecology
DX: R93.5 Abnormal findings on diagnostic imaging of other abdominal regions, including retroperitoneum (principal)
CPT/HCPCS: 99213

== ENCOUNTER → 2025-09-10 11:05 | Outpatient (BNVA) | payer MEDICARE, SELFPAY | PROVIDERS: PCP Internal Medicine; Visit Provider Obstetrics & Gynecology | DX: Z71.2 Person consulting for explanation of examination or test findings (principal); R93.5 Abnormal findings on diagnostic imaging of other abdominal regions, including retroperitoneum; Z98.890 Other specified postprocedural states | CPT/HCPCS: 99212 ==